=== PATIENT | male | born 1980 | race Caucasian/White ===

== ENCOUNTER 2021-02-04 22:16 | Inpatient (IN) | payer OTHER ==
--- OUTSIDE RECORDS SUMMARY | 2021-02-04 22:20 | XMS REPORT | Continuity of Care Document ---
:1980 Author Organization [facility] t Address [address] [place] [address] Care Team Providers Name Role Phone Pantera GALINDO Attending Clinician Problems Condition Condition Condition Status Onset Resolution Last Treating Co mments Source Name Details Category Date Date Treatment Clinician Date Bipolar Bipolar Problem Active [facility] disorder Disorder 305 da 00:00: Medical 00 Group Muscular Muscular Problem Active [place] [facility] dystrophy Dystrophy 305 da 00:00: Medical 00 Group Cardiomyop Cardiomyop Problem Active [facility] athy athy 305 da 00:00: Medical 00 Group Chronic Chronic Problem Active [place] heart Heart 305 da failure Failure 00:00: Medical 00 Group Administra Administra Problem Active [facility] tion of tion of 3-05 da pneumococc Pneumococc 00:00: Me dical al vaccine al Vaccine 00 Gr oup Allergies, Adverse Reactions, Alerts This patient has no known allergies or adverse reactions. Social History Smoking Status Start Date Stop Date Source Never Smoker [facility] Medications Ordered Filled Start Stop Current Ordering Indication Dosage Frequency Signature Comments Components Source Medication Medication Date Date Medication? Clinician (SIG) Name Name Celexa 20 Celexa 20 No 1 Q1D Celexa 20 [facility] mg tablet mg tablet mg tablet da Take 1 Take 1 Take 1 Medical tablet tablet tablet Group every day every day every day by oral by oral by oral route. route. route. Cogentin 2 Cogentin 2 No 1 BID Cogentin 2 [facility] mg tablet mg tablet mg tablet da Take 1 Take 1 Take 1 Medical tablet tablet tablet Group twice a day twice a day twice a by oral by oral day by route. route. oral route. Coreg 25 mg Coreg 25 mg No 1 BID Coreg 25 [place] tablet Take tablet Take mg tablet da 1 tablet 1 tablet Take 1 Medic al twice a day twice a day tablet Group by oral by oral twice a route. route. day by oral route. docusate docusate No 1 Q1D docusate [facility] sodium 100 sodium 100 sodium 100 da mg tablet mg tablet mg tablet Medical Take 1 Take 1 Take 1 Group tablet tablet tablet every day every day every day by oral by oral by oral route. route. route. Entresto 24 Entresto 24 No 1 BID Entresto [facility] mg-26 mg mg-26 mg 24 mg-26 da tablet Take tablet Take mg tablet Medical 1 tablet 1 tablet Take 1 Group twice a day twice a day tablet by oral by oral twice a route. route. day by oral route. lorazepam 1 lorazepam 1 No lorazepam [facility] mg tablet mg tablet 1 mg da TAKE 1/2 TAKE 1/2 tablet Medic al TABLET BY TABLET BY TAKE 1/2 G roup MOUTH TWICE MOUTH TWICE TABLET BY A DAY. A DAY. MOUTH TWICE A DAY. Risperdal 4 Risperdal 4 No 1 BID Risperdal [facility] mg tablet mg tablet 4 mg da Take 1 Take 1 tablet Medical tablet tablet Take 1 Group twice a day twice a day tablet by oral by oral twice a route. route. day by oral route. spironolact spironolact No .5 Q1D spironolac [place] one 25 mg one 25 mg tone 25 mg da tablet Take tablet Take tablet Medical 0.5 tablets 0.5 tablets Take 0.5 Group every day every day tablets by oral by oral every day route. route. by oral route. Immunizations Ordered Immunization Filled Immunization Date Status Commen ts Source Name Name influenza, influenza, 2019-09-06 Completed [facility] injectable, injectable, 18:12:00 [facility] Grou p quadrivalent, quadrivalent, preservative free preservative free influenza, influenza, 2018-10-03 Completed [facility] recombinant, recombinant, 16:46:00 Medical Gr oup quadrIvalent,injecta quadrIvalent,inject ble, preservative able, preservative free free Vital Signs Vital Name Observation Time Observation Value Comments Source BP Diastolic 2020-06-12 00:00:00 70 mm[Hg] [facility] Height 2020-06-12 00:00:00 64 [in_i] [facility] BMI (Body Mass 2020-06-12 00:00:00 19.7 kg/m2 [facility] Group BP Systolic 2020-06-12 00:00:00 114 mm[Hg] [facility] Body Weight 2020-06-12 00:00:00 1840 [oz_av] [facility] BP Diastolic 2019-09-06 00:00:00 62 mm[Hg] [facility] BP Systolic 2019-09-06 00:00:00 107 mm[Hg] [facility] Body Weight 2019-09-06 00:00:00 1680 [oz_av] [facility] BP Diastolic 2018-10-03 00:00:00 62 mm[Hg] [facility] BP Systolic 2018-10-03 00:00:00 102 mm[Hg] [facility] Body Weight 2018-10-03 00:00:00 1680 [oz_av] [facility] Procedures This patient has no known procedures. Plan of Care Planned Activity Planned Date Details Comments Source Diagnostic Test 2020-06-12 HbA1c (hemoglobin [facility] 00:00:00 A1c), blood [code = Group HbA1c (hemoglobin A1c), blood] Diagnostic Test 2020-06-12 CBC w/ auto diff [facility] 00:00:00 [code = CBC w/ auto Group diff] Diagnostic Test 2020-06-12 TSH + T4, serum [facility]ending 00:00:00 [code = TSH + T4, Group serum] Diagnostic Test 2020-06-12 lipid panel, serum [facility] 00:00:00 [code = lipid panel, Group serum] Diagnostic Test 2020-06-12 CMP, serum or plasma [facility] Pending 00:00:00 [code = CMP, serum Group or plasma] Diagnostic Test 2020-06-12 urinalysis complete, [facility] Pending 00:00:00 reflex culture [code Group = urinalysis complete, reflex culture] Future Appointment 2021-06-12 Mei Grant [facility] 00:00:00 [facility] [address]; , [place] [address] Encounters Start End Encounter Admission Attending Care Care Encounter Source Date/Time Date/Time Type Type Clinicians Facility Department ID 2020-11-03 2020-11-03 Office Pantera [facility] [id number] 03 14:45:25 15:23:00 Visit David Schwartz [id number] [place] [id number] [facility] [id number] [facility] 059 [facility] 2020-06-12 2020-06-12 [place] - [id number] [facility] 00:00:00 00:00:00 MD Silverio: [address] [place] [address] , Ph. 2019-09-06 2019-09-06 Rangel [place] - [id number] [facility] 00:00:00 00:00:00 MD Silverio: [address] [place] [address] , Ph. 2018-10-03 2018-10-03 Rangel [place] - [id number] [facility] 00:00:00 00:00:00 MD Silverio: [address] [place] [address] , Ph. Results This patient has no known results.
[2021-02-05 00:38] LABS: ALT/SGPT 73 U/L (12-78); AST/SGOT 42 U/L (15-37); Albumin 2.9 g/dL (3.4-5.0); Alkaline Phosphatase 88 U/L (45-117); BUN Blood Urea Nitrogen 8 mg/dL (7-18); Bicarbonate 32 mmol/L (21-32); Bilirubin Direct 0.2 mg/dL (0-0.2); Bilirubin Total 0.6 mg/dL (0.2-1.0); Glucose Level 124 mg/dL (74-106); Lipase 11 U/L (73-393); Magnesium 1.9 mg/dL (1.8-2.4); NT PRO-BNP 577 pg/mL (<125); Potassium 3.8 mmol/L (3.5-5.1); Protein, Total 7.1 g/dL (6.4-8.2); Sodium Level 137 mmol/L (136-145); Troponin (Emerg Dept Use Only) < 0.02 ng/mL (0.0-0.045)
[2021-02-05 00:45] LABS: Absolute Lymphocytes (CBC) 0.5 K/uL (0.7-4.9); Lymphocytes % 5.6 % (15.3-44.8); MPV 8.5 fL (7.6-11.3); RBC Red Blood Cell Count 4.34 M/uL (4.33-5.43)
[2021-02-05 00:47] LABS: Protime INR 1.27
--- NOTE | 2021-02-05 01:15 | ER ---
Nurse's Notes [facility] Name: Carter Zapata Age: 40 yrs Sex: Male : 1980 Arrival Date: 02/04/2021 Time: 22:20 Bed 18 Private MD: Diagnosis: Pneumonia, unspecified organism;Hypoxemia Presentation: 02/04 22:54 Chief complaint: Parent and/or Guardian states: pt has been running fever for the last bb 2.5 days highest was 102 she has not medicated him for fever and pt has not been eating normally and is c/o throat pain. Coronavirus screen: fever, Client presents with at least one sign or symptom that may indicate coronavirus-19. Standard/surgical mask placed on the client. Ebola Screen: No symptoms or risks identified at this time. Initial Sepsis Screen: Does the patient meet any 2 criteria? RR > 20 per min. HR > 90 bpm. Yes Does the patient have a suspected source of infection? Yes: Other: unknown. Risk Assessment: Do you want to hurt yourself or someone else? Patient reports no desire to harm self or others. Onset of symptoms was February 01, 2021. 22:54 Method Of Arrival: Wheelchair bb 22:54 Acuity: JOSÉ MIGUEL 3 bb Historical: - Allergies: 22:58 No Known Allergies; bb - Home Meds: 22:58 Ativan Oral [Active]; Celexa Oral [Active]; coconut oil oral [Active]; Cogentin Oral bb [Active]; Coreg Oral [Active]; Docusate Sodium Oral [Active]; Entresto oral [Active]; multivitamin oral [Active]; peridex oral rinse [Active]; prexident 5000 [Active]; risperidone oral [Active]; Spironolactone Oral [Active]; - PMHx: 22:58 Muscular Dystrophy; Anxiety; Bipolar disorder; Cardiomyopathy; bb - PSHx: 22:58 None; bb - Immunization history:: Adult Immunizations up to date. - Social history:: Smoking status: Patient denies any tobacco usage or history of. Screenin:56 Abuse screen: Denies threats or abuse. Denies injuries from another. Nutritional jm8 screening: No deficits noted. Tuberculosis screening: No symptoms or risk factors identified. Fall Risk IV access (20 points). Ambulatory Aid- None/Bed Rest/Nurse Assist (0 pts). Gait- Impaired (20 pts.). Assessment: 23:57 General: Appears in no apparent distress. comfortable, Behavior is calm, cooperative, jm8 appropriate for age. Pain: Denies pain. Neuro: No deficits noted. Level of Consciousness is awake, alert, obeys commands, Oriented to person, place, time. Cardiovascular: No deficits noted. Respiratory: Airway is patent Trachea midline Respiratory effort is even, shallow, weak, Respiratory pattern is regular, symmetrical, Breath sounds are clear. GI: No deficits noted. No signs and/or symptoms were reported involving the gastrointestinal system. : No deficits noted. No signs and/or symptoms were reported regarding the genitourinary system. EENT: Throat is clear Reports sore throat, fever at home, difficulty eating. Derm: No deficits noted. No signs and/or symptoms reported regarding the dermatologic system. Musculoskeletal: No deficits noted. No signs and/or symptoms reported regarding the musculoskeletal system. Vital Signs: 22:54 BP 115 / 74; Pulse 92; Resp 34 S; Temp 98.6(O); Pulse Ox 91% on R/A; Weight 52.16 kg bb (R); Height 5 ft. 4 in. (162.56 cm) (R); 02/05 00:52 BP 117 / 69; Pulse 96; Resp 16; Pulse Ox 95% on R/A; 8 02:12 BP 115 / 63; Pulse 91; Resp 16; Pulse Ox 96% on 2 lpm NC; 8 03:16 BP 120 / 69; Pulse 92; Resp 16; Pulse Ox 97% on 2 lpm NC; 8 02/04 22:54 Body Mass Index 19.74 (52.16 kg, 162.56 cm) ED Course: 02/04 22:20 Patient arrived in ED. es 22:42 Joe Santiago MD is Attending Physician. tw4 22:58 Triage completed. bb 22:58 Arm band placed on Patient placed in an exam room, on a stretcher, on pulse oximetry. bb Family accompanied patient. 23:57 Patient has correct armband on for positive identification. Bed in low position. Call [facility] light in reach. Side rails up X2. Adult w/ patient. 23:58 Inserted saline lock: 20 gauge in right antecubital area, using aseptic technique. 8 02/05 00:11 XRAY CXR (1 view) In Process Unspecified. EDMS 01:14 Tristen Rodriguez DO is Hospitalizing Provider. tw4 03:14 No provider procedures requiring assistance completed. Patient admitted, IV remains in [address] place. Administered Medications: 00:55 CANCELLED (Physician Discretion): AZITHromycin 500 mg IVPB once over 1 hrs; (mix in 250 tw4 mL NS) 00:56 CANCELLED (Physician Discretion): Rocephin (cefTRIAXone) 1 grams IV at bolus bolus; tw4 Given slow IV push per pharmacy instructions 01:07 Drug: Zosyn (piperacillin-tazobactam) 3.375 grams Route: IVPB; Infused Over: 60 mins; [facility] Site: right antecubital; 01:52 Follow up: Response: No adverse reaction; IV Status: Completed infusion [facility] Outcome: 01:14 Decision to Hospitalize by Provider. tw4 03:14 Admitted to Med/surg accompanied by nurse, via stretcher, with oxygen, with chart, [facility] Report called to Moses HARGROVE 03:14 Condition: good 03:14 Instructed on the need for admit. 03:24 Patient left the ED. jm8 Signatures: Dispatcher [employer] Siria Lemos Brenda RN RN Joe Brandon MD MD [facility] Chinedu Odonnell RN RN jm8 Corrections: (The following items were deleted from the chart) 02/04 23:03 22:58 Home Meds: muscular dystrophy; bianca valenzuela
--- NOTE | 2021-02-05 01:15 | EDPHYS ---
Physician Documentation [facility] Name: Carter Zapata Age: 40 yrs Sex: Male : 1980 Arrival Date: 02/04/2021 Time: 22:20 Bed 18 Private MD: ED Physician Joe Santiago HPI: 02/05 01:27 This 40 yrs old Male presents to ER via Wheelchair with complaints of Fever, tw4 Sore Throat, has other complications. 01:27 The patient reports fever, that was measured at 102 degrees Fahrenheit. Onset: The tw4 symptoms/episode began/occurred today. Modifying factors: there are no obvious modifying factors. Associated signs and symptoms: Pertinent positives: sore throat. Severity of symptoms: At their worst the symptoms were moderate in the emergency department the symptoms are unchanged. The patient has not experienced similar symptoms in the past. Historical: - Allergies: 02/04 22:58 No Known Allergies; bb - Home Meds: 22:58 Ativan Oral [Active]; Celexa Oral [Active]; coconut oil oral [Active]; Cogentin Oral bb [Active]; Coreg Oral [Active]; Docusate Sodium Oral [Active]; Entresto oral [Active]; multivitamin oral [Active]; peridex oral rinse [Active]; prexident 5000 [Active]; risperidone oral [Active]; Spironolactone Oral [Active]; - PMHx: 22:58 Muscular Dystrophy; Anxiety; Bipolar disorder; Cardiomyopathy; bb - PSHx: 22:58 None; bb - Immunization history:: Adult Immunizations up to date. - Social history:: Smoking status: Patient denies any tobacco usage or history of. ROS: 02/05 01:27 Constitutional: Negative for fever, chills, and weight loss, Eyes: Negative for injury, tw4 pain, redness, and discharge, Cardiovascular: Negative for chest pain, palpitations, and edema, Respiratory: Negative for shortness of breath, cough, wheezing, and pleuritic chest pain, Abdomen/GI: Negative for abdominal pain, nausea, vomiting, diarrhea, and constipation, Back: Negative for injury and pain, MS/Extremity: Negative for injury and deformity. ENT: Positive for sore throat. Exam: 01:27 Constitutional: This is a well developed, well nourished patient who is awake, alert, tw4 and in no acute distress. Head/Face: Normocephalic, atraumatic. 01:27 Cardiovascular: Regular rate and rhythm with a normal S1 and S2. No gallops, murmurs, or rubs. Normal PMI, no JVD. No pulse deficits. Respiratory: Lungs have equal breath sounds bilaterally, clear to auscultation and percussion. No rales, rhonchi or wheezes noted. No increased work of breathing, no retractions or nasal flaring. Abdomen/GI: Soft, non-tender, with normal bowel sounds. No distension or tympany. No guarding or rebound. No evidence of tenderness throughout. Back: No spinal tenderness. No costovertebral tenderness. Full range of motion. 01:27 ENT: Posterior pharynx: erythema. 01:27 Respiratory: the patient does not display signs of respiratory distress, Respirations: normal, Breath sounds: rhonchi. Vital Signs: 02/04 22:54 BP 115 / 74; Pulse 92; Resp 34 S; Temp 98.6(O); Pulse Ox 91% on R/A; Weight 52.16 kg bb (R); Height 5 ft. 4 in. (162.56 cm) (R); 02/05 00:52 BP 117 / 69; Pulse 96; Resp 16; Pulse Ox 95% on R/A; jm8 02:12 BP 115 / 63; Pulse 91; Resp 16; Pulse Ox 96% on 2 lpm NC; 8 03:16 BP 120 / 69; Pulse 92; Resp 16; Pulse Ox 97% on 2 lpm NC; 8 02/04 22:54 Body Mass Index 19.74 (52.16 kg, 162.56 cm) bb MDM: 02/04 22:45 Patient medically screened. tw4 02/05 01:29 Differential diagnosis: viral Infection, bacterial infection, URI, bronchitis. Data tw4 reviewed: vital signs, nurses notes. Data reviewed: lab test result(s), drug level(s), electrolytes, radiologic studies, plain films. Data interpreted: Pulse oximetry: Interpretation: normal. Counseling: I had a detailed discussion with the patient and/or guardian regarding: the historical points, exam findings, and any diagnostic results supporting the discharge/admit diagnosis, lab results, radiology results. 01:45 Physician consultation: Tristen Rodriguez DO regarding admission, to the telemetry unit. tw4 patient's condition, and will see patient in ED. 02/04 23:28 Order name: BMP tw 02/04 23:28 Order name: Blood Culture Adult (2) tw4 02/04 23:28 Order name: CBC with Diff; Complete Time: 00:50 tw4 02/04 23:28 Order name: Hepatic Function; Complete Time: 00:50 tw4 02/04 23:28 Order name: Lipase; Complete Time: 00:50 tw02/04 23:28 Order name: Magnesium; Complete Time: 00:50 tw4 02/04 23:28 Order name: NT PRO-BNP; Complete Time: 00:50 tw4 02/04 23:28 Order name: PT-INR; Complete Time: 00:50 tw4 02/04 23:28 Order name: Ptt, Activated; Complete Time: 00:50 tw4 02/04 23:28 Order name: Troponin (emerg Dept Use Only); Complete Time: 00:50 tw4 02/04 23:28 Order name: Basic Metabolic Panel; Complete Time: 00:50 EDMS 02/04 23:28 Order name: Blood Culture EDMN 02/05 01:00 Order name: Procalcitonin la1 02/04 23:28 Order name: XRAY CXR (1 view) tw4 02/04 23:28 Order name: EKG; Complete Time: 23:29 tw4 02/04 23:28 Order name: Cardiac monitoring; Complete Time: 00:13 4 02/04 23:28 Order name: EKG - Nurse/Tech; Complete Time: 00:13 02/04 23:28 Order name: IV Saline Lock; Complete Time: 23:55 tw4 02/04 23:28 Order name: Labs collected and sent; Complete Time: 23:55 tw4 02/04 23:28 Order name: O2 Per Protocol; Complete Time: 23:55 tw02/04 23:28 Order name: O2 Sat Monitoring; Complete Time: 23:55 tw4 02/05 02:00 Order name: SARS-COV-2 RT PCR EDMS EC:22 Rate is 90 beats/min. Rhythm is regular. QRS [place] is Normal. NV interval is shortened. tw4 QRS interval is normal. QT interval is normal. No Q waves. T waves are Normal. No ST changes noted. Clinical impression: Normal ECG. Interpreted by me. Reviewed by me. Administered Medications: 00:55 CANCELLED (Physician Discretion): AZITHromycin 500 mg IVPB once over 1 hrs; (mix in 250 tw4 mL NS) 00:56 CANCELLED (Physician Discretion): Rocephin (cefTRIAXone) 1 grams IV at bolus bolus; tw4 Given slow IV push per pharmacy instructions 01:07 Drug: Zosyn (piperacillin-tazobactam) 3.375 grams Route: IVPB; Infused Over: 60 mins; jm8 Site: right antecubital; 01:52 Follow up: Response: No adverse reaction; IV Status: Completed infusion jm8 Disposition Summary: 02/05/21 01:14 Hospitalization Ordered Hospitalization Status: Inpatient Admission tw4 Provider: Tristen Rodriguez 4 Location: Telemetry/MedSurg (Inpatient) tw4 Condition: Stable tw4 Problem: new tw4 Symptoms: have improved tw4 Bed/Room Type: Standard tw4 Room Assignment: 230(02/05/21 02:24) mw2 Diagnosis - Pneumonia, unspecified organism tw4 - Hypoxemia tw4 Forms: - Medication Reconciliation Form tw4 - SBAR form tw4 Signatures: Dispatcher [employer] Airam Roa RN RN bb Lj Maria, STOCK ASSOCIATE-C STOCK ASSOCIATE-Cla1 Janeth Lyle RN RN tl1 Joe Santiago MD MD tw4 Deepa Dennison mw2 Chinedu Odonnell RN RN jm8 Corrections: (The following items were deleted from the chart) 02/04 23:03 22:58 Home Meds: muscular dystrophy; bianca valenzuela 02/05 00:55 00:52 AZITHromycin 500 mg IVPB once over 1 hrs; (mix in 250 mL NS) ordered. tw4 00:55 00:55 AZITHromycin 500 mg IVPB once over 1 hrs; (mix in 250 mL NS) ordered. tw4 tw4 00:56 00:52 Rocephin (cefTRIAXone) 1 grams IV at bolus bolus; Given slow IV push per pharmacy tw4 instructions ordered. 4 00:56 00:55 Rocephin (cefTRIAXone) 1 grams IV at bolus bolus; Given slow IV push per pharmacy tw4 instructions ordered. tw4 01:06 00:51 CORONAVIRUS+MREleanorLAB.BRZ ordered. EDMS EDMS 02:02 01:14 tw4 tl1 02:24 02:02 [facility] 2
[2021-02-05] MEDS ORDERED: PIPER/TAZO/NS 3.375gm 3.375 GM/100 ML BAG ONE (01:21)
--- NOTE | 2021-02-05 02:04 | P.HP ---
Certification for Inpatient Patient admitted to: Inpatient With expected LOS: >2 Midnights Patient will require the following post-hospital care: None Practitioner: I am a practitioner with admitting privileges, knowledge of patient current condition, hospital course, and medical plan of care. Services: Services provided to patient in accordance with Admission requirements found in Title 42 Section 412.3 of the Code of Federal Regulations Patient History Date of Service: 02/05/21 Primary Care Provider: Out of town doctor cardiology Dr. Mott Reason for admission: Pneumonia, hypoxia History of Present Illness: 40-year-old male with history of muscular dystrophy, cardiomyopathy, BPD presents emergency department for shortness of breath, fever. Patient noted to be mildly hypoxic on room air saturating in the low 90s to high 80s. Mother at bedside reports patient has had increasing problems with swallowing over the course of the last 1-2 weeks, patient unable to cough or protect airway very well. Evaluation in the emergency department, labs significant for elevated pro calcitonin 0.4 albumin low 2.9 white blood cell count within normal limit. chest x-ray demonstrates what appears to be right middle/lower lobe pneumonia. Blood cultures obtained, ED provider wishes to admit for further evaluation and management of suspected aspiration pneumonia. 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 moist/pink Neck: Supple, 2+ carotid pulse no bruit, No LAD Respiratory: Clear to auscultation bilaterally, Diminished Cardiovascular: Regular rate/rhythm, Normal S1 S2 Capillary refill: <2 Seconds Gastrointestinal: Normal bowel sounds, No tenderness Musculoskeletal: No tenderness Integumentary: No rashes Neurological: Normal affect, Other (Wheelchair-bound), Abnormal speech, Abnormal strength, Abnormal tone - Studies Laboratory Data (last 24 hrs) 02/04/21 23:51: PT 14.6 H, INR 1.27, APTT 28.6 02/04/21 23:51: WBC 8.70, Hgb 12.6 L, Hct 38.0 L, Plt Count 224 02/04/21 23:51: Sodium 137, Potassium 3.8, BUN 8, Creatinine 0.17 L, Glucose 124 H, Magnesium 1.9, Total Bilirubin 0.6, AST 42 H, ALT 73, Alkaline Phosphatase 88, Lipase 11 L Assessment and Plan - Plan Assessment Acute hypoxic respiratory failure secondary to right lower lobe pneumonia- suspect aspiration related to muscular dystrophy with worsening dysphagia 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 NPO, speech therapy consult in place suspect patient is aspirating as mother reports he has had difficulty swallowing over the course of the last 1-2 weeks. Patient may require PEG tube. Continue with IV fluids for hydration, DVT prophylaxis Lovenox 40 mg subcutaneous once daily. 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 Appears stable at this time. BPD: Continue medications when possible. Discharge Plan: Home Plan to discharge in: Greater than 2 days - Advance Directives Does patient have a Living Will: No Does patient have a Durable POA for Healthcare: No - Code Status/Comfort Care Code Status Assessed: Yes (Full code) Critical Care: No Time Spent Managing Pts Care (In Minutes): 55
[2021-02-05] MEDS ORDERED: ONDANSETRON 4 MG/2 ML VIAL IV PRN (02:55)
[2021-02-05] MEDS ORDERED: ACETAMINOPHEN 650MG/RECT SUPP PR PRN (02:55)
[2021-02-05] MEDS: NA CHLORIDE 0.9% 1,000 ML IV SCH ×2 (03:28→12:55)
[2021-02-05] MEDS ORDERED: LORazepam 2 MG/ML VIAL IV PRN (03:57)
--- NOTE | 2021-02-05 06:04 | P.PN ---
Subjective Date of Service: 02/05/21 [facility] Dr. Mott Chief Complaint: Pneumonia, hypoxia Subjective: Other (Patient shows improvement.) Physical Examination - Vital Signs Temperature: 98.6 F Blood Pressure: 106/60 Pulse: 95 Respirations: 18 Pulse Ox (%): 98 - Studies Laboratory Data (last 24 hrs) 02/04/21 23:51: PT 14.6 H, INR 1.27, APTT 28.6 02/04/21 23:51: WBC 8.70, Hgb 12.6 L, Hct 38.0 L, Plt Count 224 02/04/21 23:51: Sodium 137, Potassium 3.8, BUN 8, Creatinine 0.17 L, Glucose 124 H, Magnesium 1.9, Total Bilirubin 0.6, AST 42 H, ALT 73, Alkaline Phosphatase 88, Lipase 11 L Assessment & Plan Discharge Plan: Home Plan to discharge in: Greater than 2 days Physician Review Additional Text: Chest x-ray: FINDINGS: Dense opacification is present in the right lung base obscuring the right hemidiaphragm and right heart border. In the acute clinical setting dense consolidated pneumonia is most likely. Pleural effusion and atelectasis components can be present as well. All lung markings are accentuated by shallow inspiration. Left lung field is clear. No cardiomegaly suspected. No pneumothorax. No acute bony abnormality seen. No acute aortic findings suspected. IMPRESSION: Dense right base opacification most likely a large pneumonia. Modified barium swallow: COMPARISON: No comparisons TECHNIQUE: The patient was given liquid, semi-solid and solid forms of barium. Lateral view fluoroscopic imaging was performed in conjunction with speech pathology service. Findings: Laryngeal penetration cleared with thin by straw, pharyngeal residue vallecular mild with thin, nectar, pudding. Moderate with honey and severe with margy cracker. Pyriform minimal with thin, mild with nectar and honey, moderate with putting. Posterior wall minimal with thin, mild with pudding, moderate to severe with margy cracker. Severe kyphosis, decreased epiglottal inversion, 2- second swallow delay, severe esophageal stasis and dysmotility with pudding and barium tablet. Physical Exam: General: Alert, In no apparent distress, Oriented x3 HEENT: Atraumatic, PERRLA, Mucous membr. moist/pink Neck: Supple, 2+ carotid pulse no bruit, No LAD Respiratory: Clear to auscultation bilaterally, Diminished Cardiovascular: Regular rate/rhythm, Normal S1 S2 Capillary refill: <2 Seconds Gastrointestinal: Normal bowel sounds, No tenderness Musculoskeletal: No tenderness Integumentary: No rashes Neurological: Normal affect, Other (Wheelchair-bound), Abnormal speech, Abnormal strength, Abnormal tone Impression: Acute hypoxic respiratory failure secondary to right lower lobe pneumonia likely aspiration with noted abnormal modified barium swallow showing severe esophageal stasis, dysmotility and decreased epiglottal inversion with worsening dysphagia Muscular dystrophy 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 Will adjust IV fluids appropriately. DVT prophylaxis in place. Aspiration precaution in place. Speech therapy evaluated patient. Modified barium swallow reviewed with speech therapy. Speech therapy reported severe esophageal stasis and dysmotility. Unsafe to eat by mouth. Recommendation PEG tube placement. This was discussed in detail with the mother who takes care of the patient. Also discussed with sister. They agree with PEG tube placement. Care discussed with surgery who will evaluate patient and likely place PEG tube tomorrow. Will discuss with social services director about future plan of care. Recheck chest x-ray tomorrow. Continue to monitor the lab closely. Parameters in place. Electrolyte protocol in place. Anticipate continued improvement. 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 Will obtain echocardiogram to reevaluate cardiomyopathy. BPD: Will provide IV lorazepam. Continue IV Cogentin. Once PEG tube in place we will restart Risperdal and Celexa. Code Status: Full code DVT Prophylaxis: Lovenox Advanced Care Planning: Home at discharge with home health and likely caregiver services. Time Spent Managing Pts Care (In Minutes): 55
[2021-02-05 07:09] LABS: Urine Appearance CLOUDY (Clear); Urine Blood NEGATIVE (Negative); Urine Color DK YELLOW (Yellow); Urine Glucose NEGATIVE (Negative); Urine Protein 1+ (Negative); Urine Specific Gravity >=1.030 (1.005-1.030)
[2021-02-05 07:15] LABS: Urine Bilirubin 2+ (Negative); Urine Microscopic Reflex ORDER UMIC
[2021-02-05 07:32] LABS: Urine Bacteria <20 /HPF (NONE SEEN); Urine RBC NONE SEEN /HPF (NONE SEEN)
[2021-02-05 07:33] LABS: Urine Amorphous Sediment 1+ /HPF (NONE SEEN)
--- NOTE | 2021-02-05 08:04 | RAD REPORT ---
EXAM DESCRIPTION: RAD - Chest Single View - 02/05/2021 12:05 am CLINICAL HISTORY: DYSPNEA COMPARISON: None TECHNIQUE: AP portable chest image was obtained 02/05/2021 12:05 am . FINDINGS: Dense opacification is present in the right lung base obscuring the right hemidiaphragm an d right heart border. In the acute clinical setting dense consolidated pneumonia is most likely. Pleu ral effusion and atelectasis components can be present as well. All lung markings are accentuated by shallow inspiration. Left lung field is clear. No cardiomegaly suspected. No pneumothorax. No acute b mary beth abnormality seen. No acute aortic findings suspected. IMPRESSION: Dense right base opacification most likely a large pneumonia.
--- NOTE | 2021-02-05 08:04 | EKG ---
Test Date: 2021-02-05 Test Time: 00:06:36 Adjunct Latin Professor: MEASUREMENT RESULTS: Intervals: Rate: 90 MO: 102 QRSD: 86 QT: 354 QTc: 433 [place]: P: 64 MO: 102 QRS: -1 T: 46 INTERPRETIVE STATEMENTS: Sinus rhythm with short MO Low voltage QRS Borderline ECG No previous ECG available for comparison Electronically Signed On 02-05-21 08:03:29 CDT by Rene Corrigan
[2021-02-05] MEDS: PIPER/TAZO/NS 3.375gm 3.375 GM/100 ML BAG IVPB SCH ×2 (09:05→16:32)
[2021-02-05] MEDS: ENOXAPARIN 40 MG/0.4 ML SQ SCH (09:05)
--- NOTE | 2021-02-05 12:56 | RAD REPORT ---
EXAM DESCRIPTION: RAD - Barium Swallow Modified - 02/05/2021 12:50 pm CLINICAL HISTORY: dysphagia Aspiration, dysphagia. COMPARISON: No comparisons TECHNIQUE: The patient was given liquid, semi-solid and solid forms of barium. Lateral view fluorosc opic imaging was performed in conjunction with speech pathology service. FINDINGS: LARYNGEAL PENETRATION CLEARED WITH THIN BY STRAW PHARYNGEAL RESIDUE VALLECULAR MILD WITH THIN, NECTAR AND PUDDING. MODERATE WITH HONEY AND SEVERE WITH JANETTE CRACKER. PYRIFORM MINIMAL WITH THIN, MILD WITH NECTAR AND HONEY, MODERATE WITH PUDDING. POSTERIOR WALL MINIMAL WITH THIN, MILD WITH PUDDING, MODERATE TO SEVERE WITH JANETTE CRACKER. SEVERE KYPHOSIS, DECREASED EPIGLOTTIC INVERSION, 2 SECOND SWALLOW DELAY, SEVERE ESOPHAGEAL STASIS AND DYSMOTILITY WITH PUDDING AND BARIUM TABLET. Total fluoroscopy time: 3 minutes and 36 seconds
[2021-02-05] MEDS: D5 0.9 NS 1,000 ML IV SCH (15:08)
[2021-02-05] MEDS: LORazepam 2 MG/ML VIAL IV PRN (16:38)
[2021-02-05] MEDS: BENZTROPINE 2 MG/2 ML VIAL IV SCH (21:00)
[2021-02-06] MEDS: D5 0.9 NS 1,000 ML IV SCH (00:56)
[2021-02-06] MEDS: PIPER/TAZO/NS 3.375gm 3.375 GM/100 ML BAG IVPB SCH ×3 (00:56→17:42)
--- NOTE | 2021-02-06 06:08 | P.PN ---
Subjective Date of Service: 02/06/21 Primary Care Provider: Out of town doctor cardiology Dr. Mott Chief Complaint: Pneumonia, hypoxia Subjective: Doing well Physical Examination - Vital Signs Temperature: 97.1 F Blood Pressure: 109/60 Pulse: 80 Respirations: 16 Pulse Ox (%): 96 Assessment & Plan Discharge Plan: Jail Plan to discharge in: Greater than 2 days Physician Review Additional Text: Chest x-ray: FINDINGS: Dense opacification is present in the right lung base obscuring the right hemidiaphragm and right heart border. In the acute clinical setting dense consolidated pneumonia is most likely. Pleural effusion and atelectasis components can be present as well. All lung markings are accentuated by shallow inspiration. Left lung field is clear. No cardiomegaly suspected. No pneumothorax. No acute bony abnormality seen. No acute aortic findings suspected. IMPRESSION: Dense right base opacification most likely a large pneumonia. Modified barium swallow: COMPARISON: No comparisons TECHNIQUE: The patient was given liquid, semi-solid and solid forms of barium. Lateral view fluoroscopic imaging was performed in conjunction with speech pathology service. Findings: Laryngeal penetration cleared with thin by straw, pharyngeal residue vallecular mild with thin, nectar, pudding. Moderate with honey and severe with margy cracker. Pyriform minimal with thin, mild with nectar and honey, moderate with putting. Posterior wall minimal with thin, mild with pudding, moderate to severe with margy cracker. Severe kyphosis, decreased epiglottal inversion, 2- second swallow delay, severe esophageal stasis and dysmotility with pudding and barium tablet. Physical Exam: General: Alert, In no apparent distress HEENT: Atraumatic, PERRLA, Mucous membr. moist/pink Neck: Supple, 2+ carotid pulse no bruit, No LAD Respiratory: Clear anteriorly. On NC. 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 Will adjust IV fluids to D51/2. DVT prophylaxis on hold until tonight. Aspiration precaution in place. Speech therapy evaluated patient. Modified barium swallow reviewed with speech therapy. Speech therapy reported severe esophageal stasis and dysmotility. Unsafe to eat by mouth. Recommendation PEG tube placement. This was discussed in detail with the mother who takes care of the patient yesterday. Also discussed with sister. They agree with PEG tube placement. Care discussed with surgery who will evaluate patient and likely place PEG tube today. Will discuss with social media sr strategy manager about future plan of care. Continue to monitor the lab closely. Parameters in place. Electrolyte protocol in place. Anticipate continued improvement. 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 Will obtain echocardiogram to reevaluate cardiomyopathy. ECHO recently done with outpatient Cardiology. Mother reports that EF was 40%. Will obtain ECHO report. BPD: Will provide IV lorazepam. Continue IV Cogentin. Once PEG tube in place we will restart Risperdal and Celexa. Code Status: Full code DVT Prophylaxis: Lovenox Advanced Care Planning: Home at discharge with home health and likely caregiver services. Time Spent Managing Pts Care (In Minutes): 55
[2021-02-06 06:10] LABS: Absolute Lymphocytes (CBC) 0.9 K/uL (0.7-4.9); Basophils % 0.4 % (0-1.3); Hematocrit 31.2 % (39.6-49.0); Lymphocytes % 14.4 % (15.3-44.8); MPV 7.8 fL (7.6-11.3); RBC Red Blood Cell Count 3.51 M/uL (4.33-5.43)
[2021-02-06 06:52] LABS: ALT/SGPT 46 U/L (12-78); AST/SGOT 20 U/L (15-37); Alkaline Phosphatase 61 U/L (45-117); BUN Blood Urea Nitrogen 3 mg/dL (7-18); Bicarbonate 32 mmol/L (21-32); Bilirubin Total 0.3 mg/dL (0.2-1.0); Glucose Level 132 mg/dL (74-106); Magnesium 1.9 mg/dL (1.8-2.4); Potassium 3.2 mmol/L (3.5-5.1); Protein, Total 5.4 g/dL (6.4-8.2); Sodium Level 145 mmol/L (136-145); Thyroid Stimulating Hormone 0.522 uIU/mL (0.360-3.740)
--- NOTE | 2021-02-06 07:29 | RAD REPORT ---
EXAM DESCRIPTION: RAD - Chest Single View - 02/06/2021 6:45 am CLINICAL HISTORY: Follow-up pneumonia COMPARISON: Chest Single View dated 02/04/2021; Barium Swallow Modified dated 02/05/2021 FINDINGS: Opacification of the right lower lung likely a combination of a moderate to large right pl eural effusion as well as underlying consolidation. Similar heart size though partially obscured.No a cute osseous abnormality. IMPRESSION: Similar moderate to large right pleural effusion with presumably underlying atelectasis and/or pneumonia.
[2021-02-06] MEDS ORDERED: D5 0.45 NS 1,000 ML IV SCH (08:00)
[2021-02-06] MEDS: KCL 20 MEQ/100 mL IVPB 20 MEQ/100 ML BAG IV SCH ×2 (09:00→15:47)
[2021-02-06] MEDS: BENZTROPINE 2 MG/2 ML VIAL IV SCH ×3 (09:00→20:50)
[2021-02-06] MEDS: ENOXAPARIN 40 MG/0.4 ML SQ SCH (09:00)
--- NOTE | 2021-02-06 09:54 | CON ---
Date of Consultation: 02/06/2021 Brief History Of Present Illness: The patient is a 40-year-old male with a medical history of muscul ar dystrophy, cardiomyopathy, BPH, who presents to the Emergency Department with shortness of breath and fever. He is hypoxic during his admission and his mother was at the bedside, who is his medical power of salesperson surgical appliances. The patient is essentially nonverbal and be getting more fatigued as of late and had difficulty with diet. During his workup and admission to the hospital, he was seen for possible likely aspiration pneumonia. He was admitted on 02/05/2021, yesterday. Dr. Rodriguez saw him. He was seen for a modified barium swallow and speech evaluation, who determined that the patient is high ris k for any oral intake and as such, I am requested to discuss PEG tube placement with the patient and family. Past Medical History: Significant for muscular dystrophy, cardiomyopathy, BPH. Past Surgical History: Denies. Social History: Never used drugs, alcohol, or recreational drugs. Review of Systems: Ten-point review of systems unable to obtain as the patient is currently sleeping and sedate. Despit e the examination, he is nonverbal. Physical Examination: Vital Signs: At the time of my examination; his blood pressure was 105/59, his heart rate is 74, tem perature 97.5, respirations 18, SpO2 99% on room air. General: He is asleep, lethargic, arousable, but nonverbal. HEENT: Otherwise normocephalic. He slightly appears thin in appearance. Chest: Normal expansion and excursion. Cardiovascular: Regular rate and rhythm. Pulmonary: Clear to auscultation bilaterally. Abdomen: Soft, nontender, nondistended. The patient is slightly contracted in the position, l salazar on his left side. Skin: Warm and dry. Laboratory Data: White blood cell count of 6.3, hemoglobin 10.2, hematocrit of 31.2, platelet count is 240. His PT 14.6, INR 1.27, PTT is 28.6. His chemistry showed a sodium 145, potassium 3.2, chlor danielle 110, carbon dioxide 32, BUN was 3, creatinine 0.15, glucose is 132, calcium 8.2, magnesium 1.9, t otal bilirubin 0.9, AST 20, ALT 46, alkaline phosphatase 61. His lipase was 11 on admission. Procal citonin 0.4. His COVID test was negative. He had a modified barium swallow performed on 02/05, ic h was evaluated and read officially. Laryngeal penetration cleared with thin by straw, pharyngeal re sidue, vallecular, mild, and thin, nectar and pudding moderate with honey and severe with Mg crac ker. Appear form minimal with thin, mild with nectar, add honey, moderate with pudding. Posterior w all minimal with thin, mild with pudding, moderate to severe with Mg cracker. Severe kyphosis. Decreased epiglottic inversion. Second swallow delay. Severe esophageal stasis and dysmotility with pudding and barium tablet. Assessment And Plan: This is a 40-year-old male who comes in with severe dysphagia, malnutrition. 1.IV fluid hydration. 2.I have explained the risks, benefits, and alternatives to the patient's mother/medical power of at torney and the patient for EGD and PEG tube placement including, but not limited to bleeding, infecti on, damage to surrounding tissues, injury to intestines, need for further operation and procedures. The patient's mother agrees to proceed as indicated. RISSA/CINTHIA Voice ID: [id number] Report ID: [id number]
[2021-02-06] MEDS ORDERED: LIDOCAINE 1% MPF 5 ML VIAL ONE (10:14)
[2021-02-06] MEDS ORDERED: propofoL 200 MG/20 ML VIAL IV ONE (10:14)
[2021-02-06] MEDS ORDERED: Ringers Lactate 1,000 ML IV ONE (10:17)
[2021-02-06] MEDS ORDERED: ALBUTEROL 2.5 MG/3 ML NEB SOL ONE (10:50)
[2021-02-06] MEDS ORDERED: FUROSEMIDE 20 MG/ 2ML VIAL ONE (11:18)
[2021-02-06] MEDS ORDERED: KETOROLAC 30 MG/ML INJ ONE (11:29)
[2021-02-06] MEDS ORDERED: dexAMETHasone 10 MG/ML VIAL ONE (11:29)
[2021-02-06] MEDS ORDERED: SCOPOLAMINE HYDROBROMIDE PATCH TD ONE (11:53)
[2021-02-06 13:03] LABS: Arterial Blood Carboxyhemoglob 0.6 % (0-1.5); Blood Gas Oxyhemoglobin 95.5 % (94-97); Blood O2 Saturation 96.9 % (92-98.5)
--- NOTE | 2021-02-06 13:19 | RAD REPORT ---
EXAM DESCRIPTION: CT - Chest For Pe Angio - 02/06/2021 1:06 pm CLINICAL HISTORY: Chest pain/hypoxia COMPARISON: None. TECHNIQUE: Dynamically enhanced axial 3 mm thick images of the chest were obtained during administra tion of <100> mL Isovue 370 IV contrast. Coronal and oblique reconstruction images were generated and reviewed. Exam utilizes a protocol for optimal evaluation of pulmonary arterial tree. Maximum intensity projections 3D imaging was utilized All CT scans are performed using dose optimization technique as appropriate and may include automated exposure control or mA/KV adjustment according to patient size. FINDINGS: A pulmonary embolus is not seen. A thoracic aortic aneurysm is not noted. Small right pleural effusion. A pericardial effusion is not seen. Moderate to large right middle and right lower lobe consolidation with atelectasis. Right lower lobe bronchus is occluded. Mild lingular opacity The gallbladder is only partially imaged on this exam. The wall may be thickened. If clinically indic ated further evaluation ultrasound could be obtained IMPRESSION: Negative for a pulmonary embolism. Moderate to large right pneumonia with atelectasis. Occlusion of the right lower lobe bronchus this s hould be followed until has cleared to help exclude an endobronchial lesion Small right pleural effusion
[2021-02-06] MEDS: NA CHLORIDE 0.9% 250 ML ONE ×2 (13:54→15:51)
[2021-02-06] MEDS ORDERED: D5W 1,000 ML IV SCH (16:00)
[2021-02-07] MEDS: PIPER/TAZO/NS 3.375gm 3.375 GM/100 ML BAG IVPB SCH ×3 (01:27→16:20)
[2021-02-07 06:02] LABS: Absolute Lymphocytes (CBC) 0.9 K/uL (0.7-4.9); Basophils % 0.5 % (0-1.3); Hematocrit 32.4 % (39.6-49.0); Lymphocytes % 15.9 % (15.3-44.8); MPV 7.7 fL (7.6-11.3); RBC Red Blood Cell Count 3.66 M/uL (4.33-5.43)
[2021-02-07 06:17] LABS: ALT/SGPT 47 U/L (12-78); AST/SGOT 21 U/L (15-37); Albumin 2.2 g/dL (3.4-5.0); Alkaline Phosphatase 61 U/L (45-117); BUN Blood Urea Nitrogen 2 mg/dL (7-18); Bicarbonate 37 mmol/L (21-32); Bilirubin Total 0.4 mg/dL (0.2-1.0); Glucose Level 104 mg/dL (74-106); Magnesium 1.7 mg/dL (1.8-2.4); Potassium 3.5 mmol/L (3.5-5.1); Sodium Level 141 mmol/L (136-145)
[2021-02-07] MEDS ORDERED: MAGNESIUM SULFATE 1 gm IVPB 1 GM/100 ML BAG IV ONE (08:00)
[2021-02-07] MEDS ORDERED: KCL 20 MEQ/100 mL IVPB 20 MEQ/100 ML BAG IV SCH (09:00)
[2021-02-07] MEDS: BENZTROPINE 2 MG/2 ML VIAL IV SCH ×3 (09:00→20:27)
--- NOTE | 2021-02-07 09:03 | RAD REPORT ---
EXAM DESCRIPTION: RAD - Chest Single View - 02/07/2021 7:54 am CLINICAL HISTORY: Pneumonia, shortness of breath COMPARISON: CT chest February 06, portable chest February 06 TECHNIQUE: AP portable chest image was obtained 02/07/2021 7:54 am . FINDINGS: Dense consolidation in the right lung base remains. There has been no significant change. Left lung field remains clear. Heart size is normal, mostly obscured by the dense right base pneumoni a. No measurable pleural effusion and no pneumothorax. No acute bony abnormality seen. No acute aorti c findings suspected. IMPRESSION: Dense consolidated pneumonia right lung base not clearly different from comparison.
--- NOTE | 2021-02-07 09:34 | P.PN ---
Subjective Date of Service: 02/07/21 Primary Care Provider: Out of [facility] doctor cardiology Dr. Mott Chief Complaint: Pneumonia, hypoxia Subjective: Improving, Doing well (Overall stable) Physical Examination - Vital Signs Temperature: 98.8 F Blood Pressure: 103/63 Pulse: 89 Respirations: 16 Pulse Ox (%): 97 Assessment & Plan Discharge Plan: Home Plan to discharge in: Greater than 2 days Physician Review Additional Text: Modified barium swallow: COMPARISON: No comparisons TECHNIQUE: The patient was given liquid, semi-solid and solid forms of barium. Lateral view fluoroscopic imaging was performed in conjunction with speech pathology service. Findings: Laryngeal penetration cleared with thin by straw, pharyngeal residue vallecular mild with thin, nectar, pudding. Moderate with honey and severe with margy cracker. Pyriform minimal with thin, mild with nectar and honey, moderate with putting. Posterior wall minimal with thin, mild with pudding, moderate to severe with margy cracker. Severe kyphosis, decreased epiglottal inversion, 2- second swallow delay, severe esophageal stasis and dysmotility with pudding and barium tablet. CT Scan: COMPARISON: None. TECHNIQUE: Dynamically enhanced axial 3 mm thick images of the chest were obtained during administration of <100> mL Isovue 370 IV contrast. Coronal and oblique reconstruction images were generated and reviewed. Exam utilizes a protocol for optimal evaluation of pulmonary arterial tree. Maximum intensity projections 3D imaging was utilized All CT scans are performed using dose optimization technique as appropriate and may include automated exposure control or mA/KV adjustment according to patient size. FINDINGS: A pulmonary embolus is not seen. A thoracic aortic aneurysm is not noted. Small right pleural effusion. A pericardial effusion is not seen. Moderate to large right middle and right lower lobe consolidation with atelectasis. Right lower lobe bronchus is occluded. Mild lingular opacity The gallbladder is only partially imaged on this exam. The wall may be thickened. If clinically indicated further evaluation ultrasound could be obtained IMPRESSION: Negative for a pulmonary embolism. Moderate to large right pneumonia with atelectasis. Occlusion of the right lower lobe bronchus this should be followed until has cleared to help exclude an endobronchial lesion Small right pleural effusion Follow-up chest x-ray COMPARISON: CT chest February 06, portable chest February 06 TECHNIQUE: AP portable chest image was obtained 02/07/2021 7:54 am . FINDINGS: Dense consolidation in the right lung base remains. There has been no significant change. Left lung field remains clear. Heart size is normal, mostly obscured by the dense right base pneumonia. No measurable pleural effusion and no pneumothorax. No acute bony abnormality seen. No acute aortic findings suspected. IMPRESSION: Dense consolidated pneumonia right lung base not clearly different from comparison. Physical Exam: General: Alert, In no apparent distress HEENT: Atraumatic, PERRLA, Mucous membr. moist/pink Neck: Supple, 2+ carotid pulse no bruit, No LAD Respiratory: Clear to the left side. Decreased to the right base. Currently on 1 to 2 L. 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 PEG tube could not be done yesterday due to acute respiratory failure. CT scan revealed moderate to large right pneumonia with atelectasis. Possible mucous plug to the right lower bronchus. Patient has significantly improved. Continue IV Zosyn. Continue IV fluids. We will add Pepcid, folic acid and thiamine. Aspiration precaution in place. Spoke with respiratory to continue chest percussion therapy. Case discussed at length with surgery. Surgery will plan for PEG tube on Tuesday once the patient has improved. Plan of care discussed in detail with mother. She agrees with plan of care. Continue current medications. Will monitor lab and chest x-ray closely. Maintain oxygen above 93%. Social work also consulted to help arrange for home health, PEG tube feeds. Likely discharge middle to late next week. 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 Likely no need for medication at this time. Echo reviewed with cardiology. Patient may have underlying diastolic heart failure. Continue with current plan of care. Will monitor closely. Ejection fraction normal. Minimal pericardial fusion noted. Likely from his cardiomyopathy and muscular dystrophy. Will monitor this closely. BPD: Continue with IV lorazepam and Cogentin. Once PEG tube in place we will restart Risperdal and Celexa. Code Status: Full code DVT Prophylaxis: Lovenox Advanced Care Planning: Home at discharge with home health and likely caregiver services. Time Spent Managing Pts Care (In Minutes): 55
[2021-02-07] MEDS: ENOXAPARIN 40 MG/0.4 ML SQ SCH (09:49)
[2021-02-07] MEDS: THIAMINE 200 MG/2 ML INJ IVP SCH (10:14)
[2021-02-07] MEDS: FOLIC ACID 1 MG in NA CHLORIDE 0.9% 50 ML IV SCH (10:14)
[2021-02-07] MEDS: FAMOTIDINE 20 MG/2 ML VIAL IV SCH ×2 (10:14→20:26)
[2021-02-07] MEDS: D5 0.9 NS 1,000 ML IV SCH (16:20)
[2021-02-08] MEDS: PIPER/TAZO/NS 3.375gm 3.375 GM/100 ML BAG IVPB SCH ×3 (01:12→16:51)
[2021-02-08 03:52] VITALS: BMI 18.0
[2021-02-08] MEDS ORDERED: MAGNESIUM SULFATE 1 gm IVPB 1 GM/100 ML BAG IV ONE (06:21)
[2021-02-08 06:27] LABS: Absolute Lymphocytes (CBC) 1.1 K/uL (0.7-4.9); Lymphocytes % 21.1 % (15.3-44.8); MPV 7.2 fL (7.6-11.3)
[2021-02-08 07:47] LABS: Potassium 3.7 mmol/L (3.5-5.1); Sodium Level 140 mmol/L (136-145)
[2021-02-08 07:48] LABS: Bicarbonate 39 mmol/L (21-32)
[2021-02-08 07:49] LABS: BUN Blood Urea Nitrogen 1 mg/dL (7-18); Glucose Level 103 mg/dL (74-106)
[2021-02-08 07:55] LABS: ALT/SGPT 40 U/L (12-78); AST/SGOT 22 U/L (15-37)
[2021-02-08 07:56] LABS: Alkaline Phosphatase 52 U/L (45-117); Bilirubin Total 0.4 mg/dL (0.2-1.0)
[2021-02-08 07:57] LABS: Protein, Total 5.6 g/dL (6.4-8.2)
[2021-02-08 07:58] LABS: Albumin 2.1 g/dL (3.4-5.0); Magnesium 2.1 mg/dL (1.8-2.4)
[2021-02-08] MEDS: BENZTROPINE 2 MG/2 ML VIAL IV SCH ×2 (09:00→19:31)
[2021-02-08] MEDS: THIAMINE 200 MG/2 ML INJ IVP SCH (09:00)
[2021-02-08] MEDS: FOLIC ACID 1 MG in NA CHLORIDE 0.9% 50 ML IV SCH (09:32)
[2021-02-08] MEDS: FAMOTIDINE 20 MG/2 ML VIAL IV SCH ×2 (09:35→20:23)
[2021-02-08] MEDS: ENOXAPARIN 40 MG/0.4 ML SQ SCH (09:36)
--- NOTE | 2021-02-08 09:43 | P.PN ---
Subjective Date of Service: 02/08/21 Primary Care Provider: Out of [facility] doctor cardiology Dr. Mott Chief Complaint: Pneumonia, hypoxia Subjective: Improving, Doing well Physical Examination - Vital Signs Temperature: 98.0 F Blood Pressure: 89/52 Pulse: 76 Respirations: 18 Pulse Ox (%): 99 Assessment & Plan Discharge Plan: Home Plan to discharge in: Greater than 2 days Physician Review Additional Text: Modified barium swallow: COMPARISON: No comparisons TECHNIQUE: The patient was given liquid, semi-solid and solid forms of barium. Lateral view fluoroscopic imaging was performed in conjunction with speech pathology service. Findings: Laryngeal penetration cleared with thin by straw, pharyngeal residue vallecular mild with thin, nectar, pudding. Moderate with honey and severe with margy cracker. Pyriform minimal with thin, mild with nectar and honey, moderate with putting. Posterior wall minimal with thin, mild with pudding, moderate to severe with margy cracker. Severe kyphosis, decreased epiglottal inversion, 2- second swallow delay, severe esophageal stasis and dysmotility with pudding and barium tablet. CT Scan: COMPARISON: None. TECHNIQUE: Dynamically enhanced axial 3 mm thick images of the chest were obtained during administration of <100> mL Isovue 370 IV contrast. Coronal and oblique reconstruction images were generated and reviewed. Exam utilizes a protocol for optimal evaluation of pulmonary arterial tree. Maximum intensity projections 3D imaging was utilized All CT scans are performed using dose optimization technique as appropriate and may include automated exposure control or mA/KV adjustment according to patient size. FINDINGS: A pulmonary embolus is not seen. A thoracic aortic aneurysm is not noted. Small right pleural effusion. A pericardial effusion is not seen. Moderate to large right middle and right lower lobe consolidation with atelectasis. Right lower lobe bronchus is occluded. Mild lingular opacity The gallbladder is only partially imaged on this exam. The wall may be thickened. If clinically indicated further evaluation ultrasound could be obtained IMPRESSION: Negative for a pulmonary embolism. Moderate to large right pneumonia with atelectasis. Occlusion of the right lower lobe bronchus this should be followed until has cleared to help exclude an endobronchial lesion Small right pleural effusion Follow-up chest x-ray COMPARISON: CT chest February 06, portable chest February 06 TECHNIQUE: AP portable chest image was obtained 02/07/2021 7:54 am . FINDINGS: Dense consolidation in the right lung base remains. There has been no significant change. Left lung field remains clear. Heart size is normal, mostly obscured by the dense right base pneumonia. No measurable pleural effusion and no pneumothorax. No acute bony abnormality seen. No acute aortic findings suspected. IMPRESSION: Dense consolidated pneumonia right lung base not clearly different from comparison. Physical Exam: General: Alert, In no apparent distress, patient talkative today. HEENT: Neck supple Respiratory: Clear to the left side. Decreased to the right base. Currently on 1.5 L Cardiovascular: Regular rate/rhythm, Normal S1 S2 Capillary refill: <2 Seconds Gastrointestinal: Normal bowel sounds, No tenderness Musculoskeletal: No tenderness Integumentary: No rashes Neurological: Normal affect, Other (Wheelchair-bound), Abnormal speech, Abnormal strength, Abnormal tone Impression: Acute hypoxic respiratory failure secondary to right lower lobe pneumonia likely aspiration with noted abnormal modified barium swallow showing severe esophageal stasis, dysmotility and decreased epiglottal inversion with worsening dysphagia Muscular dystrophy Cardiomyopathy with underlying chronic diastolic CHF secondary to muscular dystrophy Bipolar disorder Plan Acute hypoxic respiratory failure secondary to large consolidated right lower lobe pneumonia likely aspiration with noted abnormal modified barium swallow showing severe esophageal stasis, dysmotility and decreased epiglottal inversion with worsening dysphagia: Patient doing well at this morning. No complaints noted. Patient remains on 1.5 L per nasal cannula. Continue IV Zosyn and IV fluids. Patient remains on IV Pepcid, folic acid and thiamine. Aspiration precaution in place. Surgery will plan for PEG tube on Tuesday. Plan of care discussed in detail with mother. She agrees with plan of care. Continue current medications. Will monitor lab and chest x-ray closely. Maintain oxygen above 93%. Social work also consulted to help arrange for home health, PEG tube feeds. Likely discharge middle to late week. 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 Likely no need for medication at this time. Echo reviewed with cardiology. Patient may have underlying diastolic heart failure. Continue with current plan of care. Will monitor closely. Ejection fraction normal. Minimal pericardial fusion noted. Likely from his cardiomyopathy and muscular dystrophy. Will monitor this closely. BPD: Continue with IV lorazepam and Cogentin. Once PEG tube in place we will restart Risperdal and Celexa. Code Status: Full code DVT Prophylaxis: Lovenox Advanced Care Planning: Home at discharge with home health and likely caregiver services. Time Spent Managing Pts Care (In Minutes): 55
[2021-02-08] MEDS: D5 0.9 NS 1,000 ML IV SCH (16:57)
[2021-02-09] MEDS: PIPER/TAZO/NS 3.375gm 3.375 GM/100 ML BAG IVPB SCH ×3 (01:00→16:00)
[2021-02-09 04:12] LABS: Basophils % 0.4 % (0-1.3); Hematocrit 30.6 % (39.6-49.0); Lymphocytes % 19.8 % (15.3-44.8); MPV 7.5 fL (7.6-11.3); RBC Red Blood Cell Count 3.46 M/uL (4.33-5.43)
[2021-02-09 04:55] LABS: BUN Blood Urea Nitrogen 1 mg/dL (7-18); Bicarbonate 36 mmol/L (21-32); Glucose Level 96 mg/dL (74-106); Magnesium 2.1 mg/dL (1.8-2.4); Potassium 3.3 mmol/L (3.5-5.1); Sodium Level 142 mmol/L (136-145)
--- NOTE | 2021-02-09 05:56 | P.PN ---
Subjective Date of Service: 02/09/21 Primary Care Provider: Out of [facility] doctor cardiology Dr. Mott Chief Complaint: Pneumonia, hypoxia Subjective: Doing well Physical Examination - Vital Signs Temperature: 98.3 F Blood Pressure: 108/56 Pulse: 80 Respirations: 18 Pulse Ox (%): 96 Assessment & Plan Discharge Plan: Home Plan to discharge in: Greater than 2 days Physician Review Additional Text: Modified barium swallow: COMPARISON: No comparisons TECHNIQUE: The patient was given liquid, semi-solid and solid forms of barium. Lateral view fluoroscopic imaging was performed in conjunction with speech pathology service. Findings: Laryngeal penetration cleared with thin by straw, pharyngeal residue vallecular mild with thin, nectar, pudding. Moderate with honey and severe with margy c racker. Pyriform minimal with thin, mild with nectar and honey, moderate with putting. Posterior wall minimal with thin, mild with pudding, moderate to severe with margy cracker. Severe kyphosis, decreased epiglottal inversion, 2- second swallow delay, severe esophageal stasis and dysmotility with pudding and barium tablet. CT Scan: COMPARISON: None. TECHNIQUE: Dynamically enhanced axial 3 mm thick images of the chest were obtained during administration of <100> mL Isovue 370 IV contrast. Coronal and oblique reconstruction images were generated and reviewed. Exam utilizes a protocol for optimal evaluation of pulmonary arterial tree. Maximum intensity projections 3D imaging was utilized All CT scans are performed using dose optimization technique as appropriate and may include automated exposure control or mA/KV adjustment according to patient size. FINDINGS: A pulmonary embolus is not seen. A thoracic aortic aneurysm is not noted. Small right pleural effusion. A pericardial effusion is not seen. Moderate to large right middle and right lower lobe consolidation with atelectasis. Right lower lobe bronchus is occluded. Mild lingular opacity The gallbladder is only partially imaged on this exam. The wall may be thickened. If clinically indicated further evaluation ultrasound could be obtained IMPRESSION: Negative for a pulmonary embolism. Moderate to large right pneumonia with atelectasis. Occlusion of the right lower lobe bronchus this should be followed until has cleared to help exclude an endobronchial lesion Small right pleural effusion Follow-up chest x-ray COMPARISON: Chest Single View dated 02/07/2021; Chest Single View dated 02/06/2021; Chest Single View dated 02/04/2021; Chest For Pe Angio dated 02/06/2021 FINDINGS: Portable technique limits examination quality. The large right lung base consolidation appears stable since 02/07/2021 study. Emphysematous left lung is noted. The heart is normal in size. No displaced fractures. Physical Exam: General: Alert, In no apparent distress, patient talkative today. HEENT: Neck supple Respiratory: Clear to the left side. Decreased to the right base. Currently on 1.5 L Cardiovascular: Regular rate/rhythm, Normal S1 S2 Capillary refill: <2 Seconds Gastrointestinal: Normal bowel sounds, No tenderness Musculoskeletal: No tenderness Integumentary: No rashes Neurological: Normal affect, Other (Wheelchair-bound), Abnormal speech, Abnormal strength, Abnormal tone Impression: Acute hypoxic respiratory failure secondary to right lower lobe pneumonia likely aspiration with noted abnormal modified barium swallow showing severe esophageal stasis, dysmotility and decreased epiglottal inversion with worsening dysphagia Muscular dystrophy Cardiomyopathy with underlying chronic diastolic CHF secondary to muscular dystrophy Bipolar disorder Plan Acute hypoxic respiratory failure secondary to large consolidated right lower lobe pneumonia likely aspiration with noted abnormal modified barium swallow showing severe esophageal stasis, dysmotility and decreased epiglottal inversion with worsening dysphagia: Patient doing well at this morning. No complaints noted. Patient remains on 1.5 L per nasal cannula. Continue IV Zosyn and IV fluids. Patient remains on IV Pepcid, folic acid and thiamine. Aspiration precaution in place. PEG tube scheduled for today. Case discussed with surgery. Plan of care discussed with patient and mother. Maintain oxygen above 93%. Social work also consulted to help arrange for home health, PEG tube feeds. Likely discharge middle to late week. 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 Likely no need for medication at this time. Echo reviewed with cardiology. Patient may have underlying diastolic heart failure. Continue with current plan of care. Will monitor closely. Ejection fraction normal. Minimal pericardial fusion noted. Likely from his cardiomyopathy and muscular dystrophy. Will monitor this closely. BPD: Continue with IV lorazepam and Cogentin. Once PEG tube in place we will restart Risperdal and Celexa. Code Status: Full code DVT Prophylaxis: Lovenox Advanced Care Planning: Home at discharge with home health and likely caregiver services. Time Spent Managing Pts Care (In Minutes): 55
[2021-02-09] MEDS: KCL 20 MEQ/100 mL IVPB 20 MEQ/100 ML BAG IV SCH ×2 (06:19→08:50)
[2021-02-09] MEDS: FOLIC ACID 1 MG in NA CHLORIDE 0.9% 50 ML IV SCH (08:00)
--- NOTE | 2021-02-09 08:05 | ECHO ---
HEIGHT: 5 ft 4 in WEIGHT: 105 lb 0 oz DATE OF STUDY: 02/06/[address]: Tristen Rodriguez DO 2-DIMENSIONAL: YES M.MODE: YES DOPPLER: YES COLOR FLOW: YES TDS: NO PORTABLE: NO DEFINITY: NO BUBBLE STUDY: NO DIAGNOSIS: CHEST PAIN CARDIAC HISTORY: CATHERIZATION: SURGERY: PROSTHETIC VALVE: PACEMAKER: MEASUREMENTS (cm) DIASTOLIC (NORMALS) SYSTOLIC (NORMALS) IVSd 0.7 (0.6-1.2) LA Diam 3.0 (1.9-4.0) LVEF 58% LVIDd 5.1 (3.5-5.7) LVIDs 3.5 (2.0-3.5) %FS 30% LVPWd 0.7 (0.6-1.2) Ao Diam 3.1 (2.0-3.7) 2 DIMENSIONAL ASSESSMENT: RIGHT ATRIUM: NORMAL LEFT ATRIUM: NORMAL RIGHT VENTRICLE: NORMAL LEFT VENTRICLE: NORMAL TRICUSPID VALVE: NORMAL MITRAL VALVE: NORMAL PULMONIC VALVE: NORMAL AORTIC VALVE: NORMAL PERICARDIAL EFFUSION: TRACE AORTIC ROOT: NORMAL LEFT VENTRICULAR WALL MOTION: NORMAL EJECTION FRACTION - DECREASED LEFT VENTRICULAR COMPLIANCE. DOPPLER/COLOR FLOW: NORMAL. COMMENTS: TRACE OF PERICARDIAL EFFUSION. NORMAL LEFT VENTRICULAR SIZE. DECREASED LEFT VENTRICULAR COMPLIANCE. NORMAL OVERALL EJECTION FRACTION. TECHNOLOGIST: JUAN ORTIZ
[2021-02-09] MEDS: FAMOTIDINE 20 MG/2 ML VIAL IV SCH ×2 (08:47→21:11)
[2021-02-09] MEDS: THIAMINE 200 MG/2 ML INJ IVP SCH (08:48)
[2021-02-09] MEDS: ENOXAPARIN 40 MG/0.4 ML SQ SCH (08:48)
[2021-02-09] MEDS: BENZTROPINE 2 MG/2 ML VIAL IV SCH ×2 (08:49→21:00)
--- NOTE | 2021-02-09 09:02 | RAD REPORT ---
EXAM DESCRIPTION: RAD - Chest Single View - 02/09/2021 6:22 am CLINICAL HISTORY: follow up pneumonia Chest pain. COMPARISON: Chest Single View dated 02/07/2021; Chest Single View dated 02/06/2021; Chest Single View d ated 02/04/2021; Chest For Pe Angio dated 02/06/2021 FINDINGS: Portable technique limits examination quality. The large right lung base consolidation appears stable since 02/07/2021 study. Emphysematous left wesley g is noted. The heart is normal in size. No displaced fractures.
[2021-02-09] MEDS ORDERED: propofoL 200 MG/20 ML VIAL IV ONE ×2 (10:27→11:06)
[2021-02-09] MEDS ORDERED: LIDOCAINE 1% MPF 5 ML VIAL ONE (10:27)
[2021-02-09] MEDS ORDERED: Ringers Lactate 1,000 ML IV ONE (10:45)
--- NOTE | 2021-02-09 11:02 | ENDO RPT ---
[address], [address] EGD WITH PEG PROCEDURE REPORT EXAM DATE: 02/09/2021 PATIENT NAME: Carter Zapata MR #: [id number] BIRTHDATE: 1980 ATTENDING: Jasiel Alvarado DR STATUS: inpatient - 7 FARM AGENT: Zayda Hairston RN and Sindhu Dominique CST INDICATIONS: The patient is a 40 yr old Male here for an EGD with PEG due to dyspepsia, dysphagia, Aspiration, and malnutrition PROCEDURE PERFORMED: EGD-PEG MEDICATIONS: Per Anesthesia. TOPICAL ANESTHETIC: none CONSENT: The patient understands the risks and benefits of the procedure and understands that these risks include, but are not limited to: sedation, allergic reaction, infection, perforation and/or bleeding. Alternative means of evaluation and treatment include, among others: physical exam, x-rays, and/or surgical intervention. The patient elects to proceed with this endoscopic procedure. DESCRIPTION OF PROCEDURE: During intra-op preparation period all mechanical medical equipment was checked for proper function. Hand hygiene and appropriate measures for infection prevention was taken. After the risks, benefits and alternatives of the procedure were thoroughly explained, Informed consent was verified, confirmed and timeout was successfully executed by the treatment team. The patient was anesthetized with topical anesthesia and the Pentax EG-2990i ([id number]) endoscope was introduced through the mouth and advanced to the first portion of the duodenum. The instrument was slowly withdrawn as the mucosa was fully examined. The stomach was then inflated with air, and by a combination of transillumination and manual palpation, the site for the gastrostomy tube placement was selected and marked on the anterior abdominal wall. The skin of the anterior abdomen was surgically prepped and draped with sterile towels. Utilizing strict sterile technique, the selected site was then anesthetized with 1% xylocaine by injection into the skin and subcutaneous tissue. A 1 cm incision was made through the skin and subcutaneous tissue, and the needle/cannula assembly was then passed through the abdominal wall and through the anterior wall of the stomach, maintaining visualization with the endoscope. A snare device previously placed through the instrument channel was then opened and placed around the cannula, the needle was removed, and the insertion wire was passed through the cannula and into the stomach lumen. The snare was then loosened from the cannula, and repositioned to snare the insertion wire. The snare was then pulled up to the endoscope distal tip, and the scope was then withdrawn bringing with it the snare and insertion wire. The insertion wire was then released from the snare, and then loop-attached to the PEG PULL gastrostomy tube. Using the pull technique, the G-tube was then pulled into place by traction on the insertion wire at the abdominal wall end. The G-tube insertion site was then cleansed once again, and the external bolster was placed over the tube to secure it to the abdominal wall. A sterile dressing was then applied, and the procedure terminated. Retroflexed views revealed no abnormalities. The gastroscope was then slowly withdrawn and removed. ADVERSE EVENT: There were no complications. IMPRESSIONS: RECOMMENDATIONS: 1. anti-reflux regimen 2. follow-up: office 1 week(s) 3. avoid NSAIDS 4. begin feeding tomorrow 5. follow PEG suggestions REPEAT EXAM: Jasiel Alvarado DR eSigned: Jasiel Alvarado DR 02/09/2021 11:01 AM cc: CPT CODES: ICD9 CODES: PATIENT NAME: Carter Zapata MR#: [id number]
[2021-02-09] MEDS: D5 0.9 NS 1,000 ML IV SCH ×2 (15:24)
[2021-02-09] MEDS: MORPHINE 2 MG/ML SYR IV PRN ×2 (15:32→21:11)
[2021-02-10] MEDS: PIPER/TAZO/NS 3.375gm 3.375 GM/100 ML BAG IVPB SCH ×3 (02:14→16:00)
[2021-02-10] MEDS: MORPHINE 2 MG/ML SYR IV PRN ×4 (02:15→23:09)
[2021-02-10 06:17] LABS: Absolute Lymphocytes (CBC) 0.8 K/uL (0.7-4.9); Basophils % 0.5 % (0-1.3); Lymphocytes % 10.3 % (15.3-44.8); MPV 7.2 fL (7.6-11.3); RBC Red Blood Cell Count 3.62 M/uL (4.33-5.43)
--- NOTE | 2021-02-10 06:19 | P.PN ---
Subjective Date of Service: 02/10/21 Primary Care Provider: Out of [facility] doctor cardiology Dr. Mott Chief Complaint: Pneumonia, hypoxia Subjective: Improving, Doing well Physical Examination - Vital Signs Temperature: 98.1 F Blood Pressure: 106/61 Pulse: 65 Respirations: 19 Pulse Ox (%): 99 - Studies Microbiology Data (last 24 hrs): 02/05/21 00:04 Blood - Blood Aerobic Blood Culture - Final No growth in 5 days. 02/05/21 00:04 Blood - Blood Anaerobic Blood Culture - Final No growth in 5 days. 02/04/21 23:51 Blood - Blood Aerobic Blood Culture - Final No growth in 5 days. 02/04/21 23:51 Blood - Blood Anaerobic Blood Culture - Final No growth in 5 days. Assessment & Plan Discharge Plan: Home Plan to discharge in: Greater than 2 days Physician Review Additional Text: Modified barium swallow: COMPARISON: No comparisons TECHNIQUE: The patient was given liquid, semi-solid and solid forms of barium. Lateral view fluoroscopic imaging was performed in conjunction with speech pathology service. Findings: Laryngeal penetration cleared with thin by straw, pharyngeal residue vallecular mild with thin, nectar, pudding. Moderate with honey and severe with margy cracker. Pyriform minimal with thin, mild with nectar and honey, moderate with putting. Posterior wall minimal with thin, mild with pudding, moderate to severe with margy cracker. Severe kyphosis, decreased epiglottal inversion, 2- second swallow delay, severe esophageal stasis and dysmotility with pudding and barium tablet. CT Scan: COMPARISON: None. TECHNIQUE: Dynamically enhanced axial 3 mm thick images of the chest were obtained during administration of <100> mL Isovue 370 IV contrast. Coronal and oblique reconstruction images were generated and reviewed. Exam utilizes a protocol for optimal evaluation of pulmonary arterial tree. Maximum intensity projections 3D imaging was utilized All CT scans are performed using dose optimization technique as appropriate and may include automated exposure control or mA/KV adjustment according to patient size. FINDINGS: A pulmonary embolus is not seen. A thoracic aortic aneurysm is not noted. Small right pleural effusion. A pericardial effusion is not seen. Moderate to large right middle and right lower lobe consolidation with atelectasis. Right lower lobe bronchus is occluded. Mild lingular opacity The gallbladder is only partially imaged on this exam. The wall may be thickened. If clinically indicated further evaluation ultrasound could be obtained IMPRESSION: Negative for a pulmonary embolism. Moderate to large right pneumonia with atelectasis. Occlusion of the right lower lobe bronchus this should be followed until has cleared to help exclude an endobronchial lesion Small right pleural effusion Follow-up chest x-ray COMPARISON: Chest Single View dated 02/07/2021; Chest Single View dated 02/06/2021; Chest Single View dated 02/04/2021; Chest For Pe Angio dated 02/06/2021 FINDINGS: Portable technique limits examination quality. The large right lung base consolidation appears stable since 02/07/2021 study. Emphysematous left lung is noted. The heart is normal in size. No displaced fractures. Physical Exam: General: Alert, In no apparent distress, patient talkative today. HEENT: Neck supple Respiratory: Clear to the left side. Decreased to the right base. Currently on 1.5 L Cardiovascular: Regular rate/rhythm, Normal S1 S2 Capillary refill: <2 Seconds Gastrointestinal: Normal bowel sounds, No tenderness Musculoskeletal: No tenderness Integumentary: No rashes Neurological: Normal affect, Other (Wheelchair-bound), Abnormal speech, Abnormal strength, Abnormal tone Impression: Acute hypoxic respiratory failure secondary to right lower lobe pneumonia likely aspiration with noted abnormal modified barium swallow showing severe esophageal stasis, dysmotility and decreased epiglottal inversion with worsening dysphagia Muscular dystrophy Cardiomyopathy with underlying chronic diastolic CHF secondary to muscular dystrophy Bipolar disorder Plan Acute hypoxic respiratory failure secondary to large consolidated right lower l obe pneumonia likely aspiration with noted abnormal modified barium swallow showing severe esophageal stasis, dysmotility and decreased epiglottal inversion with worsening dysphagia: Patient did well overnight. Patient started on PEG tube feeds. Case discussed with surgery. Continue to monitor residuals. Slowly increase tube feeds to reach his maximum an appropriate amount. Dietary to help with this. Aspiration precaution in place. Recheck chest x-ray today. Continue IV Zosyn and IV fluids. Patient remains on IV Pepcid, folic acid and thiamine. Will transition IV medication to oral through PEG tube once patient taking feeds well. Monitor and trend lab. Case discussed with mother. Social work to help with needs at discharge. I will turn the service over to the hosp italist team tomorrow. I will go plan of care with him. 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 Likely no need for medication at this time. Echo reviewed with cardiology. Patient may have underlying diastolic heart failure. Continue with current plan of care. Will monitor closely. Ejection fraction normal. Minimal pericardial fusion noted. Likely from his cardiomyopathy and muscular dystrophy. Will monitor this closely. BPD: Continue with IV lorazepam and Cogentin. Once PEG tube in place we will restart Risperdal and Celexa. Code Status: Full code DVT Prophylaxis: Lovenox Advanced Care Planning: Home at discharge with home health and likely caregiver services. Time Spent Managing Pts Care (In Minutes): 55
[2021-02-10 06:33] LABS: BUN Blood Urea Nitrogen < 1 mg/dL (7-18); Bicarbonate 37 mmol/L (21-32); Glucose Level 129 mg/dL (74-106); Sodium Level 139 mmol/L (136-145)
[2021-02-10] MEDS: FOLIC ACID 1 MG in NA CHLORIDE 0.9% 50 ML IV SCH (08:00)
[2021-02-10] MEDS: ENOXAPARIN 40 MG/0.4 ML SQ SCH (08:16)
[2021-02-10] MEDS: FAMOTIDINE 20 MG/2 ML VIAL IV SCH ×2 (08:17→22:47)
[2021-02-10] MEDS: THIAMINE 200 MG/2 ML INJ IVP SCH (08:17)
[2021-02-10] MEDS: BENZTROPINE 2 MG/2 ML VIAL IV SCH (08:17)
[2021-02-10] MEDS: JEVITY 1.5 CAL LIQUID 1,000 ML BOT RTH SCH (08:18)
[2021-02-10] MEDS: D5 0.9 NS 1,000 ML IV SCH ×2 (08:22→15:31)
--- NOTE | 2021-02-10 16:41 | RAD REPORT ---
EXAM DESCRIPTION: RAD - Chest Single View - 02/10/2021 4:09 pm CLINICAL HISTORY: follow up aspiration COMPARISON: Chest Single View dated 02/09/2021; Chest Single View dated 02/07/2021; Chest Single View dated 02/06/2021; Chest Single View dated 02/04/2021; Chest For Pe Angio dated 02/06/2021 FINDINGS: Persistent right lower lobe consolidation and a small volume of pleural fluid which is sim ilar to prior. The left lung is clear. Suspect cardiomegaly but partially obscured.No acute osseous a bnormality. No significant pleural effusions or pneumothorax. IMPRESSION: No significant change from 02/09/2021 with persistent right basilar consolidation/effusi on. The left lung is clear appear
[2021-02-10] MEDS ORDERED: BENZTROPINE MESYLATE 2 MG PO SCH (21:00)
[2021-02-10] MEDS: BENZTROPINE 1 MG TAB PO SCH (21:00)
[2021-02-10] MEDS ORDERED: RISPERIDONE 4 MG PO SCH (21:00)
[2021-02-10] MEDS: RISPERIDONE 1 MG TABLET PO SCH (22:47)
[2021-02-11] MEDS: PIPER/TAZO/NS 3.375gm 3.375 GM/100 ML BAG IVPB SCH ×2 (01:33→11:46)
[2021-02-11] MEDS: MORPHINE 2 MG/ML SYR IV PRN ×2 (04:23→11:01)
[2021-02-11 04:27] LABS: Absolute Lymphocytes (CBC) 1.1 K/uL (0.7-4.9); Basophils % 0.7 % (0-1.3); Hematocrit 34.1 % (39.6-49.0); Lymphocytes % 14.2 % (15.3-44.8); MPV 7.4 fL (7.6-11.3); RBC Red Blood Cell Count 3.85 M/uL (4.33-5.43)
[2021-02-11 05:38] LABS: BUN Blood Urea Nitrogen 2 mg/dL (7-18); Bicarbonate 40 mmol/L (21-32); Glucose Level 160 mg/dL (74-106); Magnesium 1.9 mg/dL (1.8-2.4); Potassium 3.6 mmol/L (3.5-5.1); Sodium Level 142 mmol/L (136-145)
[2021-02-11] MEDS: BENZTROPINE 1 MG TAB PO SCH ×2 (09:00→21:00)
[2021-02-11] MEDS ORDERED: POTASSIUM 25 MEQ EFFERV TAB PO ONE (09:00)
--- NOTE | 2021-02-11 10:20 | P.PN ---
Subjective Date of Service: 02/11/21 Primary Care Provider: Out of [facility] doctor cardiology Dr. Mott Chief Complaint: Pneumonia, hypoxia Subjective: Improving (Patient tolerating tube feedings.) Physical Examination - Vital Signs Temperature: 98.7 F Blood Pressure: 100/59 Pulse: 106 Respirations: 18 Pulse Ox (%): 94 - Physical Exam General: Alert, In no apparent distress, Cooperative Respiratory: Diminished Gastrointestinal: Soft and benign, Non-distended, No ascites, No masses, No rebound, No guarding, Tenderness (@ PEG tube site - appropriate and minimal) Assessment And Plan - Plan - continue tube feeding per dietary recs - follow up in 1-2 weeks - ok to DC when pulmonary issues resolved Physician Review Additional Text: Modified barium swallow: COMPARISON: No comparisons TECHNIQUE: The patient was given liquid, semi-solid and solid forms of barium. Lateral view fluoroscopic imaging was performed in conjunction with speech pathology service. Findings: Laryngeal penetration cleared with thin by straw, pharyngeal residue vallecular mild with thin, nectar, pudding. Moderate with honey and severe with margy cracker. Pyriform minimal with thin, mild with nectar and honey, moderate with putting. Posterior wall minimal with thin, mild with pudding, moderate to severe with margy cracker. Severe kyphosis, decreased epiglottal inversion, 2- second swallow delay, severe esophageal stasis and dysmotility with pudding and barium tablet. CT Scan: COMPARISON: None. TECHNIQUE: Dynamically enhanced axial 3 mm thick images of the chest were obtained during administration of <100> mL Isovue 370 IV contrast. Coronal and oblique reconstruction images were generated and reviewed. Exam utilizes a protocol for optimal evaluation of pulmonary arterial tree. Maximum intensity projections 3D imaging was utilized All CT scans are performed using dose optimization technique as appropriate and may include automated exposure control or mA/KV adjustment according to patient size. FINDINGS: A pulmonary embolus is not seen. A thoracic aortic aneurysm is not noted. Small right pleural effusion. A pericardial effusion is not seen. Moderate to large right middle and right lower lobe consolidation with atelectasis. Right lower lobe bronchus is occluded. Mild lingular opacity The gallbladder is only partially imaged on this exam. The wall may be thickened. If clinically indicated further evaluation ultrasound could be obtained IMPRESSION: Negative for a pulmonary embolism. Moderate to large right pneumonia with atelectasis. Occlusion of the right lower lobe bronchus this should be followed until has cleared to help exclude an endobronchial lesion Small right pleural effusion Follow-up chest x-ray COMPARISON: Chest Single View dated 02/07/2021; Chest Single View dated 02/06/2021; Chest Single View dated 02/04/2021; Chest For Pe Angio dated 02/06/2021 FINDINGS: Portable technique limits examination quality. The large right lung base consolidation appears stable since 02/07/2021 study. Emphysematous left lung is noted. The heart is normal in size. No displaced fractures. Physical Exam: General: Alert, In no apparent distress, patient talkative today. HEENT: Neck supple Respiratory: Clear to the left side. Decreased to the right base. Currently on 1.5 L Cardiovascular: Regular rate/rhythm, Normal S1 S2 Capillary refill: <2 Seconds Gastrointestinal: Normal bowel sounds, No tenderness Musculoskeletal: No tenderness Integumentary: No rashes Neurological: Normal affect, Other (Wheelchair-bound), Abnormal speech, Abnormal strength, Abnormal tone Impression: Acute hypoxic respiratory failure secondary to right lower lobe pneumonia likely aspiration with noted abnormal modified barium swallow showing severe esophageal stasis, dysmotility and decreased epiglottal inversion with worsening dysphagia Muscular dystrophy Cardiomyopathy with underlying chronic diastolic CHF secondary to muscular dystrophy Bipolar disorder Plan Acute hypoxic respiratory failure secondary to large consolidated right lower lobe pneumonia likely aspiration with noted abnormal modified barium swallow showing severe esophageal stasis, dysmotility and decreased epiglottal inversion with worsening dysphagia: Patient did well overnight. Patient started on PEG tube feeds. Case discussed with surgery. Continue to monitor residuals. Slowly increase tube feeds to reach his maximum an appropriate amount. Dietary to help with this. Aspiration precaution in place. Recheck chest x-ray today. Continue IV Zosyn and IV fluids. Patient remains on IV Pepcid, folic acid and thiamine. Will transition IV medication to oral through PEG tube once patient taking feeds well. Monitor and trend lab. Case discussed with mother. Social work to help with needs at discharge. I will turn the service over to the hospitalist team tomorrow. I will go plan of care with him. 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 Likely no need for medication at this time. Echo reviewed with cardiology. Patient may have underlying diastolic heart failure. Continue with current plan of care. Will monitor closely. Ejection fraction normal. Minimal pericardial fusion noted. Likely from his cardiomyopathy and muscular dystrophy. Will monitor this closely. BPD: Continue with IV lorazepam and Cogentin. Once PEG tube in place we will restart Risperdal and Celexa. Code Status: Full code DVT Prophylaxis: Lovenox Advanced Care Planning: Home at discharge with home health and likely caregiver services.
[2021-02-11] MEDS: CITALOPRAM 10 MG TABLET PO SCH (10:40)
[2021-02-11] MEDS: FAMOTIDINE 20 MG/2 ML VIAL IV SCH (10:41)
[2021-02-11] MEDS: FOLIC ACID 1 MG in NA CHLORIDE 0.9% 50 ML IV SCH (10:42)
[2021-02-11] MEDS: RISPERIDONE 1 MG TABLET PO SCH ×2 (10:42→21:01)
[2021-02-11] MEDS: THIAMINE 200 MG/2 ML INJ IVP SCH (10:42)
[2021-02-11] MEDS: D5 0.9 NS 1,000 ML IV SCH (12:00)
[2021-02-11] MEDS: HYDROCORTISONE 2.5% RECT CR PR SCH ×3 (14:30→21:02)
[2021-02-11 17:57] LABS: Blood Gas Oxyhemoglobin 94.6 % (94-97); Blood O2 Saturation 96.7 % (92-98.5)
--- NOTE | 2021-02-11 18:38 | P.CNS ---
Date of Consult: 02/11/21 (TV) Primary Care Provider: Out of [facility] doctor cardiology Dr. Mott Chief Complaint: Pneumonia, hypoxia History of Present Illness: Age 40 AW pneumonia, Mucular dystrophy, AW SOB , hypoxemia/ S/p PEG tube. Resp failure/ Allergies No Known Allergies Allergy (Unverified 02/05/21 02:54) Home Medications: Benztropine Mesylate [Cogentin] 2 mg PO BID 02/05/21 Carvedilol [Coreg] 25 mg PO BID 02/05/21 Citalopram [Celexa] 20 mg PO DAILY 02/05/21 LORazepam [Ativan*] 1 mg PO PRN PRN 02/05/21 Sacubitril/Valsartan [Entresto 24 mg-26 mg Tablet] 0.5 tab PO BID 02/05/21 Spironolactone 12.5 mg PO DAILY 02/05/21 risperiDONE [Risperdal] 4 mg PO BID 02/05/21 - Past Medical/Surgical History Diabetic: No -: Muscular dystrophy -: Cardiomyopathy -: BPD -: Diastolic dysfuntion -: none Psychosocial/ Personal History: Patient is disabled, lives with mother who is his power of health care attorney - Family History Mother Medical History: Hypertension - Social History Alcohol use: No CD- Drugs: No Caffeine use: No Place of Residence: Home Physical Examination Temp Pulse Resp BP Pulse Ox 98.5 F 99 H 17 121/65 99 02/11/21 12:00 02/11/21 12:00 02/11/21 12:00 02/11/21 12:00 02/11/21 12:00 - Problems (1) Respiratory failure Current Visit: Yes Status: Acute Plan: Dx muscular dystrophy AW R ll pneumonia, Presune C respiratory failure from muscular dystrophy. Repeat ABG confirmed hypercapnea. Avoid sedatives and narcotics, Change to Augmentin and DOXY , Dc Zosyn CT reviewed. Airspace disease in RLL. Chest PT F/u CXRY in 2 wks/chest precussion Qualifiers: Chronicity: acute on chronic
[2021-02-11] MEDS ORDERED: KETOROLAC 30 MG/ML INJ IV ONE (19:36)
[2021-02-11] MEDS: ALBUTEROL 2.5 MG/3 ML NEB SOL NEB SCH (19:50)
[2021-02-11] MEDS: AMOX/K CLAV 500 MG TAB PO SCH (21:01)
[2021-02-11] MEDS: DOXYCYCLINE 100 MG CAP PO SCH (21:01)
[2021-02-12] MEDS: ALBUTEROL 2.5 MG/3 ML NEB SOL NEB SCH ×2 (03:45→08:00)
[2021-02-12 05:53] LABS: Absolute Lymphocytes (CBC) 1.1 K/uL (0.7-4.9); Basophils % 0.6 % (0-1.3); Hematocrit 34.9 % (39.6-49.0); Lymphocytes % 12.9 % (15.3-44.8); MPV 7.6 fL (7.6-11.3); RBC Red Blood Cell Count 3.94 M/uL (4.33-5.43)
[2021-02-12 06:03] LABS: BUN Blood Urea Nitrogen 4 mg/dL (7-18); Bicarbonate 37 mmol/L (21-32); Glucose Level 121 mg/dL (74-106); Magnesium 2.2 mg/dL (1.8-2.4); Sodium Level 141 mmol/L (136-145)
[2021-02-12] MEDS ORDERED: NA CHLORIDE 0.9% 250 ML IV ONE (06:27)
[2021-02-12] MEDS: NA CHLORIDE 0.9% 1,000 ML IV SCH (06:43)
--- NOTE | 2021-02-12 08:15 | RAD REPORT ---
EXAM DESCRIPTION: RAD - Chest Single View - 02/12/2021 5:38 am CLINICAL HISTORY: resp failure COMPARISON: Chest Single View dated 02/10/2021; Chest Single View dated 02/09/2021; Chest Single View dated 02/07/2021; Chest Single View dated 02/06/2021 FINDINGS: Similar appearance of the right-sided pleural effusion and underlying consolidation. The l eft lung remains clear. The heart size is partially obscured but similar.No acute osseous abnormality . Right pleural effusion. IMPRESSION: No change compared with 02/10/2021 with right-sided pleural effusion and underlying cons olidation/atelectasis. Left lung remains clear.
[2021-02-12] MEDS: CITALOPRAM 10 MG TABLET PO SCH (08:59)
[2021-02-12] MEDS: RISPERIDONE 1 MG TABLET PO SCH ×2 (08:59→21:09)
[2021-02-12] MEDS: BENZTROPINE 1 MG TAB PO SCH ×2 (09:00→21:00)
[2021-02-12] MEDS: DOXYCYCLINE 100 MG CAP PO SCH ×2 (09:00→21:10)
[2021-02-12] MEDS: AMOX/K CLAV 500 MG TAB PO SCH ×2 (09:00→21:10)
[2021-02-12] MEDS: HYDROCORTISONE 2.5% RECT CR PR SCH ×3 (09:01→21:12)
[2021-02-12] MEDS: LEVALBUTEROL 0.63 MG/3 ML NEB NEB SCH ×3 (09:05→20:05)
[2021-02-12] MEDS: FOLIC ACID 1 MG in NA CHLORIDE 0.9% 50 ML IV SCH (10:10)
[2021-02-12] MEDS ORDERED: METOPROLOL TAR 25 MG TAB PO ONE (10:30)
[2021-02-12] MEDS: METOPROLOL TAR 25 MG TAB PO SCH (18:00)
[2021-02-12] MEDS ORDERED: DIPHENHYDRAMINE 50 MG/ML VIAL IV ONE (20:34)
[2021-02-13] MEDS: JEVITY 1.5 CAL LIQUID 1,000 ML BOT RTH SCH (00:03)
[2021-02-13] MEDS: NA CHLORIDE 0.9% 1,000 ML IV SCH ×3 (00:57→21:52)
[2021-02-13] MEDS: LEVALBUTEROL 0.63 MG/3 ML NEB NEB SCH ×4 (02:15→20:00)
[2021-02-13] MEDS: METOPROLOL TAR 25 MG TAB PO SCH ×3 (05:54→21:27)
[2021-02-13] MEDS: BENZTROPINE 1 MG TAB PO SCH ×2 (09:00→21:05)
[2021-02-13] MEDS: DOXYCYCLINE 100 MG CAP PO SCH ×2 (10:04→21:05)
[2021-02-13] MEDS: CITALOPRAM 10 MG TABLET PO SCH (10:05)
[2021-02-13] MEDS: AMOX/K CLAV 500 MG TAB PO SCH ×2 (10:05→21:05)
[2021-02-13] MEDS: RISPERIDONE 1 MG TABLET PO SCH ×2 (10:05→21:05)
[2021-02-13] MEDS: FOLIC ACID 1 MG in NA CHLORIDE 0.9% 50 ML IV SCH (10:06)
[2021-02-13] MEDS: HYDROCORTISONE 2.5% RECT CR PR SCH ×3 (10:06→21:00)
--- NOTE | 2021-02-13 10:30 | P.PN ---
Subjective Date of Service: 02/11/21 Patient is still with right lower lobe infiltrate. However, patient appears to have some mucous plugging which may be causing some complete atelectasis of the lower lobe. Consulted Pulmonary for further evaluation. Patient may need bronchoscopy. Review of Systems 10-point ROS is otherwise unremarkable Physical Examination - Vital Signs Temperature: 98 F Blood Pressure: 97/55 Pulse: 95 Respirations: 17 Pulse Ox (%): 97 - Physical Exam General: Alert, In no apparent distress, Oriented x3 Respiratory: Diminished (Right lower lobe) Cardiovascular: Regular rate/rhythm, Normal S1 S2, Systolic murmur Gastrointestinal: Normal bowel sounds, Soft and benign, Non-distended, No tenderness Musculoskeletal: No clubbing, No swelling, No tenderness Neurological: Sensation intact, Cranial nerves 3-12 intact - Studies Medications List Reviewed: Yes Assessment & Plan - Problems (Diagnosis) (1) Right lower lobe pulmonary infiltrate Current Visit: Yes Status: Acute (2) Atelectasis of right lung Current Visit: Yes Status: Acute (3) Aspiration pneumonia Current Visit: Yes Status: Acute (4) Mucus plugging of bronchi Current Visit: Yes Status: Acute (5) Muscular dystrophy Current Visit: Yes Status: Acute (6) Hemorrhoids Current Visit: Yes Status: Acute (7) Respiratory failure Current Visit: Yes Status: Acute Qualifiers: Chronicity: acute on chronic - Plan 1. Continue with IV antibiotics 2. Awaiting sputum and blood culture 3. Repeat chest x-ray 4. Patient made need bronchoscopy if right lung is not having some re-expansion 5. Appreciate pulmonary consultation 6. Continue with nebs as needed; BiPAP support 7. O2 per protocol 8. Continue with gentle hydration 9. Repeat labs including CBC and renal function in a.m. 10. GI and DVT prophylaxis Discharge Plan: Home Plan to discharge in: Greater than 2 days - Advance Directives Does patient have a Living Will: No Does patient have a Durable POA for Healthcare: Yes - Code Status/Comfort Care Code Status Assessed: Yes Code Status: Full Code Critical Care: No Time Spent Managing PTS Care (In Minutes): 35
--- NOTE | 2021-02-13 10:32 | P.PN ---
Date of Service: 02/12/21 Subjective Patient was tachycardic today. Sinus tachyarrhythmia. Resumed beta-salvador therapy with Lopressor. Holding Entresto. Patient blood pressure is on the low side. Review of Systems 10-point ROS is otherwise unremarkable Physical Examination - Vital Signs Reviewed - Physical Exam General: Alert, In no apparent distress, Oriented Respiratory: Diminished (Right lower lobe) Cardiovascular: Regular rate/rhythm, Normal S1 S2, Systolic murmur Gastrointestinal: Normal bowel sounds, Soft and benign, Non-distended, No tenderness Musculoskeletal: No clubbing, No swelling, No tenderness Neurological: Sensation intact, Cranial nerves 3-12 intact; generalized weakness injury to muscular dystrophy Assessment & Plan - Problems (Diagnosis) (1) Right lower lobe pulmonary infiltrate Current Visit: Yes Status: Acute (2) Atelectasis of right lung Current Visit: Yes Status: Acute (3) Aspiration pneumonia Current Visit: Yes Status: Acute (4) Mucus plugging of bronchi Current Visit: Yes Status: Acute (5) Muscular dystrophy Current Visit: Yes Status: Acute (6) Hemorrhoids Current Visit: Yes Status: Acute (7) Respiratory failure Current Visit: Yes Status: Acute Qualifiers: Chronicity: acute on chronic - Plan Continue with plan of care as mentioned below: 1. Continue with IV antibiotics 2. Awaiting sputum and blood culture 3. Repeat chest x-ray 4. Patient made need bronchoscopy if right lung is not having some re-expansion; continue with supportive care with pulmonary toilet. May need BiPAP support 5. Appreciate pulmonary consultation 6. Continue with nebs as needed; BiPAP support 7. O2 per protocol 8. Continue with tube feeds and Hep-Lock IV 9. Continue monitoring labs 10. GI and DVT prophylaxis
--- NOTE | 2021-02-13 10:33 | P.PN ---
Date of Service: 02/13/21 Subjective Patient is doing better. Chest x-ray shows improvement. Patient is clinically doing better. Review of Systems 10-point ROS is otherwise unremarkable Physical Examination - Vital Signs Reviewed - Physical Exam General: Alert, In no apparent distress, Oriented Respiratory: Diminished (Right lower lobe) Cardiovascular: Regular rate/rhythm, Normal S1 S2, Systolic murmur Gastrointestinal: Normal bowel sounds, Soft and benign, Non-distended, No tenderness; hemorrhoid is decreased in size Musculoskeletal: No clubbing, No swelling, No tenderness Neurological: Sensation intact, Cranial nerves 3-12 intact; generalized weakness injury to muscular dystrophy Assessment & Plan - Problems (Diagnosis) (1) Right lower lobe pulmonary infiltrate Current Visit: Yes Status: Acute (2) Atelectasis of right lung Current Visit: Yes Status: Acute (3) Aspiration pneumonia Current Visit: Yes Status: Acute (4) Mucus plugging of bronchi Current Visit: Yes Status: Acute (5) Muscular dystrophy Current Visit: Yes Status: Acute (6) Hemorrhoids Current Visit: Yes Status: Acute (7) Respiratory failure Current Visit: Yes Status: Acute Qualifiers: Chronicity: acute on chronic - Plan Continue with plan of care as mentioned below: 1. Continue with IV antibiotics 2. Cultures are negative 3. Repeat chest x-ray 4. May not need bronchoscopy after all as lung is reexpanding 5. Appreciate pulmonary consultation 6. Continue with nebs as needed; BiPAP support as needed 7. O2 per protocol 8. Continue with tube feeds and Hep-Lock IV 9. Continue monitoring labs 10. GI and DVT prophylaxis Family requesting Ensure with protein prescriptions and did tube feeds at home so will need prescription for foster care needs to assist with getting the Ensure with protein; also requested physical therapy eval as they will need a wheelchair with the head rest.
--- NOTE | 2021-02-13 11:03 | RAD REPORT ---
EXAM DESCRIPTION: RAD - Chest Single View - 02/13/2021 10:54 am CLINICAL HISTORY: pneumonia COMPARISON: Chest Single View dated 02/12/2021; Chest Single View dated 02/10/2021; Chest Single View dated 02/09/2021; Chest Single View dated 02/07/2021; Chest For Pe Angio dated 02/06/2021 FINDINGS: Similar appearing right lower lobe consolidative airspace disease with or without a small effusion. Left lung remains clear. The heart size is normal. IMPRESSION: Unchanged right lower lobe consolidation. Left lung remains clear.
[2021-02-13] MEDS ORDERED: DIPHENHYDRAMINE 25 MG TAB/CAP PO PRN (21:00)
[2021-02-14] MEDS: LEVALBUTEROL 0.63 MG/3 ML NEB NEB SCH ×4 (02:30→20:00)
[2021-02-14] MEDS: JEVITY 1.5 CAL LIQUID 1,000 ML BOT RTH SCH ×2 (04:01→23:02)
[2021-02-14] MEDS: LORazepam 2 MG/ML VIAL IV PRN ×3 (04:14→23:01)
[2021-02-14 05:56] LABS: Absolute Lymphocytes (CBC) 1.2 K/uL (0.7-4.9); Basophils % 0.4 % (0-1.3); Hematocrit 30.6 % (39.6-49.0); Lymphocytes % 13.2 % (15.3-44.8); MPV 7.4 fL (7.6-11.3); RBC Red Blood Cell Count 3.52 M/uL (4.33-5.43)
[2021-02-14] MEDS: METOPROLOL TAR 25 MG TAB PO SCH ×3 (06:08→23:01)
--- NOTE | 2021-02-14 06:12 | P.PN ---
Subjective Date of Service: 02/14/21 Primary Care Provider: Out of [facility] doctor cardiology Dr. Mott Chief Complaint: Pneumonia, hypoxia Subjective: Improving, Doing well Physical Examination - Vital Signs Temperature: 97.3 F Blood Pressure: 120/66 Pulse: 115 Respirations: 18 Pulse Ox (%): 96 - Studies Medications List Reviewed: Yes Assessment & Plan Discharge Plan: Home Plan to discharge in: 24 Hours Physician Review Additional Text: Modified barium swallow: COMPARISON: No comparisons TECHNIQUE: The patient was given liquid, semi-solid and solid forms of barium. Lateral view fluoroscopic imaging was performed in conjunction with speech pathology service. Findings: Laryngeal penetration cleared with thin by straw, pharyngeal residue vallecular mild with thin, nectar, pudding. Moderate with honey and severe with margy cracker. Pyriform minimal with thin, mild with nectar and honey, moderate with putting. Posterior wall minimal with thin, mild with pudding, moderate to severe with margy cracker. Severe kyphosis, decreased epiglottal inversion, 2- second swallow delay, severe esophageal stasis and dysmotility with pudding and barium tablet. CT Scan: COMPARISON: None. TECHNIQUE: Dynamically enhanced axial 3 mm thick images of the chest were obtained during administration of <100> mL Isovue 370 IV contrast. Coronal and oblique reconstruction images were generated and reviewed. Exam utilizes a protocol for optimal evaluation of pulmonary arterial tree. Maximum intensity projections 3D imaging was utilized All CT scans are performed using dose optimization technique as appropriate and may include automated exposure control or mA/KV adjustment according to patient size. FINDINGS: A pulmonary embolus is not seen. A thoracic aortic aneurysm is not noted. Small right pleural effusion. A pericardial effusion is not seen. Moderate to large right middle and right lower lobe consolidation with a telectasis. Right lower lobe bronchus is occluded. Mild lingular opacity The gallbladder is only partially imaged on this exam. The wall may be thickened. If clinically indicated further evaluation ultrasound could be obtained IMPRESSION: Negative for a pulmonary embolism. Moderate to large right pneumonia with atelectasis. Occlusion of the right lower lobe bronchus this should be followed until has cleared to help exclude an endobronchial lesion Small right pleural effusion Follow-up chest x-ray 02/14/2021: COMPARISON: Chest Single View dated 02/13/2021; Chest Single View dated 02/12/2021; Chest Single View dated 02/10/2021; Chest Single View dated 02/09/2021 FINDINGS: Unchanged consolidative airspace disease in the right lower lobe. The lungs volumes are slightly improved. Left lung remains clear. The heart size is within normal limits.No acute osseous abnormality. No significant pleural effusions or pneumothorax. IMPRESSION: Slight improved lung volumes but otherwise similar right basilar consolidative airspace disease. The left lung remains clear. Physical Exam: General: Alert, In no apparent distress, patient talkative today. HEENT: Neck supple Respiratory: Clear to the left side. Decreased to the right base. Currently on 1.5 L Cardiovascular: Regular rate/rhythm, Normal S1 S2 Capillary refill: <2 Seconds Gastrointestinal: Normal bowel sounds, No tenderness Musculoskeletal: No tenderness Integumentary: No rashes Neurological: Normal affect, Other (Wheelchair-bound), Abnormal speech, Abnormal strength, Abnormal tone Impression: Acute hypoxic respiratory failure secondary to right lower lobe pneumonia likely aspiration with noted abnormal modified barium swallow showing severe esophageal stasis, dysmotility and decreased epiglottal inversion with worsening dysphagia Muscular dystrophy Cardiomyopathy with underlying chronic diastolic CHF secondary to muscular dystrophy Bipolar disorder Plan Acute hypoxic respiratory failure secondary to large consolidated right lower lobe pneumonia likely aspiration with noted abnormal modified barium swallow showing severe esophageal stasis, dysmotility and decreased epiglottal inversion with worsening dysphagia: Patient continues to improve. Patient tolerating PEG tube feeds. Patient on amoxicillin and doxycycline. Case discussed with pulmonology. Anticipate likely discharge within the next 24 to 48 hours. Awaiting to see if patient will require NIV at discharge. Continue current medication. Will discuss further with pulmonology. 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 Likely no need for medication at this time. Echo reviewed with cardiology. Patient may have underlying diastolic heart failure. Continue with current plan of care. Will monitor closely. Ejection fraction normal. Minimal pericardial fusion noted. Likely from his cardiomyopathy and muscular dystrophy. Will monitor this closely. BPD: Continue with home medication Code Status: Full code DVT Prophylaxis: Lovenox Advanced Care Planning: Home at discharge with home health and likely caregiver services. Spoke to case management. Reports the following. Jevity 1.5 feedings recommended by international project engineer will delivered on date of DC and covered at 100%. No recommendations in place for Ensure to meet nutritional needs. Suction has been ordered- pending NIV has been ordered- pending PT eval still pending for wheelchair recommendation. Time Spent Managing Pts Care (In Minutes): 55
[2021-02-14 06:29] LABS: ALT/SGPT 35 U/L (12-78); AST/SGOT 22 U/L (15-37); Albumin 2.4 g/dL (3.4-5.0); Alkaline Phosphatase 51 U/L (45-117); BUN Blood Urea Nitrogen 5 mg/dL (7-18); Bicarbonate 33 mmol/L (21-32); Bilirubin Total 0.2 mg/dL (0.2-1.0); Glucose Level 130 mg/dL (74-106); Magnesium 2.2 mg/dL (1.8-2.4); NT PRO-BNP 234 pg/mL (<125); Potassium 3.9 mmol/L (3.5-5.1); Protein, Total 5.9 g/dL (6.4-8.2); Sodium Level 140 mmol/L (136-145)
--- NOTE | 2021-02-14 06:59 | RAD REPORT ---
EXAM DESCRIPTION: RAD - Chest Single View - 02/14/2021 6:43 am CLINICAL HISTORY: pneumonia COMPARISON: Chest Single View dated 02/13/2021; Chest Single View dated 02/12/2021; Chest Single View dated 02/10/2021; Chest Single View dated 02/09/2021 FINDINGS: Unchanged consolidative airspace disease in the right lower lobe. The lungs volumes are sl ightly improved. Left lung remains clear. The heart size is within normal limits.No acute osseous abn ormality. No significant pleural effusions or pneumothorax. IMPRESSION: Slight improved lung volumes but otherwise similar right basilar consolidative airspace disease. The left lung remains clear.
[2021-02-14] MEDS: BENZTROPINE 1 MG TAB PO SCH ×2 (09:00→21:00)
[2021-02-14] MEDS: HYDROCORTISONE 2.5% RECT CR PR SCH ×2 (09:00→14:00)
[2021-02-14] MEDS ORDERED: POTASSIUM 25 MEQ EFFERV TAB PO ONE (09:00)
[2021-02-14] MEDS: FOLIC ACID 1 MG in NA CHLORIDE 0.9% 50 ML IV SCH (09:00)
[2021-02-14 09:28] LABS: Blood Morphology Comment NOT SEEN (NOT SEEN); Platelet Estimate ADEQ
[2021-02-14] MEDS: RISPERIDONE 1 MG TABLET PO SCH ×2 (10:24→21:07)
[2021-02-14] MEDS: DOXYCYCLINE 100 MG CAP PO SCH ×2 (10:24→21:07)
[2021-02-14] MEDS: CITALOPRAM 10 MG TABLET PO SCH (10:25)
[2021-02-14] MEDS: AMOX/K CLAV 500 MG TAB PO SCH ×2 (10:25→21:07)
[2021-02-14 15:58] LABS: Arterial Blood Carboxyhemoglob 0.8 % (0-1.5); Blood Gas Oxyhemoglobin 95.1 % (94-97); Blood O2 Saturation 96.7 % (92-98.5)
--- NOTE | 2021-02-14 17:09 | P.PN ---
Subjective Date of Service: 02/14/21 (TV) Primary Care Provider: Out of [facility] doctor cardiology Dr. Mott Chief Complaint: Pneumonia Subjective: Improving (Well. Alert Communicating) Physical Examination - Vital Signs Temperature: 97.3 F Blood Pressure: 120/66 Pulse: 115 Respirations: 18 Pulse Ox (%): 96 - Physical Exam General: Alert, Cooperative - Studies Medications List Reviewed: Yes Assessment & Plan - Problems (Diagnosis) (1) Respiratory failure Current Visit: Yes Status: Acute Plan: Pt doing well/ Mild hypercapnia/ Family members not keen on NIV/ Labs reviewed/ DW with Sister ICU nurse/ WBC normal/ cultures neg/ Plan for DC home am on Augmentin and Doxy Qualifiers: Chronicity: acute on chronic Physician Review Additional Text: Modified barium swallow: COMPARISON: No comparisons TECHNIQUE: The patient was given liquid, semi-solid and solid forms of barium. Lateral view fluoroscopic imaging was performed in conjunction with speech pathology service. Findings: Laryngeal penetration cleared with thin by straw, pharyngeal residue vallecular mild with thin, nectar, pudding. Moderate with honey and severe with margy cracker. Pyriform minimal with thin, mild with nectar and honey, moderate with putting. Posterior wall minimal with thin, mild with pudding, moderate to severe with margy cracker. Severe kyphosis, decreased epiglottal inversion, 2- second swallow delay, severe esophageal stasis and dysmotility with pudding and barium tablet. CT Scan: COMPARISON: None. TECHNIQUE: Dynamically enhanced axial 3 mm thick images of the chest were obtained during administration of <100> mL Isovue 370 IV contrast. Coronal and oblique reconstruction images were generated and reviewed. Exam utilizes a protocol for optimal evaluation of pulmonary arterial tree. Maximum intensity projections 3D imaging was utilized All CT scans are performed using dose optimization technique as appropriate and may include automated exposure control or mA/KV adjustment according to patient size. FINDINGS: A pulmonary embolus is not seen. A thoracic aortic aneurysm is not noted. Small right pleural effusion. A pericardial effusion is not seen. Moderate to large right middle and right lower lobe consolidation with atelectasis. Right lower lobe bronchus is occluded. Mild lingular opacity The gallbladder is only partially imaged on this exam. The wall may be thickened. If clinically indicated further evaluation ultrasound could be obtained IMPRESSION: Negative for a pulmonary embolism. Moderate to large right pneumonia with atelectasis. Occlusion of the right lower lobe bronchus this should be followed until has cleared to help exclude an endobronchial lesion Small right pleural effusion Follow-up chest x-ray 02/14/2021: COMPARISON: Chest Single View dated 02/13/2021; Chest Single View dated 02/12/2021; Chest Single View dated 02/10/2021; Chest Single View dated 02/09/2021 FINDINGS: Unchanged consolidative airspace disease in the right lower lobe. The lungs volumes are slightly improved. Left lung remains clear. The heart size is within normal limits.No acute osseous abnormality. No significant pleural effusions or pneumothorax. IMPRESSION: Slight improved lung volumes but otherwise similar right basilar consolidative airspace disease. The left lung remains clear. Physical Exam: General: Alert, In no apparent distress, patient talkative today. HEENT: Neck supple Respiratory: Clear to the left side. Decreased to the right base. Currently on 1.5 L Cardiovascular: Regular rate/rhythm, Normal S1 S2 Capillary refill: <2 Seconds Gastrointestinal: Normal bowel sounds, No tenderness Musculoskeletal: No tenderness Integumentary: No rashes Neurological: Normal affect, Other (Wheelchair-bound), Abnormal speech, Abnormal strength, Abnormal tone Impression: Acute hypoxic respiratory failure secondary to right lower lobe pneumonia likely aspiration with noted abnormal modified barium swallow showing severe esophageal stasis, dysmotility and decreased epiglottal inversion with worsening dysphagia Muscular dystrophy Cardiomyopathy with underlying chronic diastolic CHF secondary to muscular dystrophy Bipolar disorder Plan Acute hypoxic respiratory failure secondary to large consolidated right lower lobe pneumonia likely aspiration with noted abnormal modified barium swallow showing severe esophageal stasis, dysmotility and decreased epiglottal inversion with worsening dysphagia: Patient continues to improve. Patient tolerating PEG tube feeds. Patient on amoxicillin and doxycycline. Case discussed with pulmonology. Anticipate likely discharge within the next 24 to 48 hours. Awaiting to see if patient will require NIV at discharge. Continue current medication. Will discuss further with pulmonology. 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 Likely no need for medication at this time. Echo reviewed with cardiology. Patient may have underlying diastolic heart failure. Continue with current plan of care. Will monitor closely. Ejection fraction normal. Minimal pericardial fusion noted. Likely from his cardiomyopathy and muscular dystrophy. Will monitor this closely. BPD: Continue with home medication Code Status: Full code DVT Prophylaxis: Lovenox Advanced Care Planning: Home at discharge with home health and likely caregiver services. Spoke to case management. Reports the following. Jevity 1.5 feedings recommended by hearing screener will delivered on date of DC and covered at 100%. No recommendations in place for Ensure to meet nutritional needs. Suction has been ordered- pending NIV has been ordered- pending PT eval still pending for wheelchair recommendation.
[2021-02-15] MEDS: LEVALBUTEROL 0.63 MG/3 ML NEB NEB SCH ×4 (02:00→19:50)
[2021-02-15 05:58] LABS: BUN Blood Urea Nitrogen 7 mg/dL (7-18); Bicarbonate 33 mmol/L (21-32); Glucose Level 126 mg/dL (74-106); Potassium 4.3 mmol/L (3.5-5.1); Sodium Level 139 mmol/L (136-145)
--- NOTE | 2021-02-15 06:07 | P.PN ---
Subjective Date of Service: 02/15/21 Primary Care Provider: Out of [facility] doctor cardiology Dr. Mott Chief Complaint: Pneumonia Subjective: Improving, Doing well Physical Examination - Vital Signs Temperature: 98.6 F Blood Pressure: 117/63 Pulse: 134 Respirations: 18 Pulse Ox (%): 94 - Studies Medications List Reviewed: Yes Assessment & Plan Discharge Plan: Home Plan to discharge in: 24 Hours Physician Review Additional Text: Modified barium swallow: COMPARISON: No comparisons TECHNIQUE: The patient was given liquid, semi-solid and solid forms of barium. Lateral view fluoroscopic imaging was performed in conjunction with speech pathology service. Findings: Laryngeal penetration cleared with thin by straw, pharyngeal residue vallecular mild with thin, nectar, pudding. Moderate with honey and severe with margy cracker. Pyriform minimal with thin, mild with nectar and honey, moderate with putting. Posterior wall minimal with thin, mild with pudding, moderate to severe with margy cracker. Severe kyphosis, decreased epiglottal inversion, 2- second swallow delay, severe esophageal stasis and dysmotility with pudding and barium tablet. CT Scan: COMPARISON: None. TECHNIQUE: Dynamically enhanced axial 3 mm thick images of the chest were obtained during administration of <100> mL Isovue 370 IV contrast. Coronal and oblique reconstruction images were generated and reviewed. Exam utilizes a protocol for optimal evaluation of pulmonary arterial tree. Maximum intensity projections 3D imaging was utilized All CT scans are performed using dose optimization technique as appropriate and may include automated exposure control or mA/KV adjustment according to patient size. FINDINGS: A pulmonary embolus is not seen. A thoracic aortic aneurysm is not noted. Small right pleural effusion. A pericardial effusion is not seen. Moderate to large right middle and right lower lobe consolidation with atelectasis. Right lower lobe bronchus is occluded. Mild lingular opacity The gallbladder is only partially imaged on this exam. The wall may be thickened. If clinically indicated further evaluation ultrasound could be obtained IMPRESSION: Negative for a pulmonary embolism. Moderate to large right pneumonia with atelectasis. Occlusion of the right lower lobe bronchus this should be followed until has cleared to help exclude an endobronchial lesion Small right pleural effusion Follow-up chest x-ray 02/14/2021: COMPARISON: Chest Single View dated 02/13/2021; Chest Single View dated 02/12/2021; Chest Single View dated 02/10/2021; Chest Single View dated 02/09/2021 FINDINGS: Unchanged consolidative airspace disease in the right lower lobe. The lungs volumes are slightly improved. Left lung remains clear. The heart size is within normal limits.No acute osseous abnormality. No significant pleural effusions or pneumothorax. IMPRESSION: Slight improved lung volumes but otherwise similar right basilar consolidative airspace disease. The left lung remains clear. Physical Exam: General: Alert, In no apparent distress, patient talkative today. HEENT: Neck supple Respiratory: No distress noted. Patient on room air. Cardiovascular: Mild tachycardia. Overall stable normal S1 S2 Capillary refill: <2 Seconds Gastrointestinal: Normal bowel sounds, No tenderness Musculoskeletal: No tenderness Integumentary: No rashes Neurological: Normal affect, Other (Wheelchair-bound), Abnormal speech, Abnormal strength, Abnormal tone Impression: Acute hypoxic respiratory failure secondary to right lower lobe pneumonia likely aspiration with noted abnormal modified barium swallow showing severe esophageal stasis, dysmotility and decreased epiglottal inversion with worsening dysphagia Muscular dystrophy Cardiomyopathy with underlying chronic diastolic CHF secondary to muscular dystrophy Bipolar disorder Plan Acute hypoxic respiratory failure secondary to large consolidated right lower lobe pneumonia likely aspiration with noted abnormal modified barium swallow showing severe esophageal stasis, dysmotility and decreased epiglottal inversion with worsening dysphagia: Patient has done well. Continue with PEG tube feeds. This will be transitioned to bolus feeds with the help of dietary. Family to be taught on feeds. Mother waiting on other needs including suction machine. NIV will likely not be required at discharge. PT did their assessment for wheelchair recommendation. Anticipate discharge tomorrow. 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 Blood pressure improved. Will restart carvedilol at a low dose BPD: Continue with home medication Code Status: Full code DVT Prophylaxis: Lovenox Advanced Care Planning: Home at discharge with home health and likely caregiver services. Dissipate discharge tomorrow. Spoke to case management. Reports the following. Dietary to gear changer to bolus feeds. Family will be taught. Awaiting on suction machine. Patient will likely not require NIV at discharge. Physical therapy has made their evaluation for wheelchair recommendation. Time Spent Managing Pts Care (In Minutes): 55
[2021-02-15] MEDS: BENZTROPINE 1 MG TAB PO SCH ×2 (09:00→20:59)
[2021-02-15] MEDS: AMOX/K CLAV 500 MG TAB PO SCH ×2 (11:09→20:59)
[2021-02-15] MEDS: CITALOPRAM 10 MG TABLET PO SCH (11:10)
[2021-02-15] MEDS: METOPROLOL TAR 25 MG TAB PO SCH ×2 (11:10→18:14)
[2021-02-15] MEDS: FOLIC ACID 1 MG in NA CHLORIDE 0.9% 50 ML IV SCH (11:11)
[2021-02-15] MEDS: DOXYCYCLINE 100 MG CAP PO SCH ×2 (11:11→20:59)
[2021-02-15] MEDS: RISPERIDONE 1 MG TABLET PO SCH ×2 (11:11→20:59)
[2021-02-15] MEDS: JEVITY 1.5 CAL LIQUID 1,000 ML BOT RTH SCH (23:30)
[2021-02-16] MEDS: LEVALBUTEROL 0.63 MG/3 ML NEB NEB SCH ×3 (02:10→14:00)
[2021-02-16] MEDS: METOPROLOL TAR 25 MG TAB PO SCH ×2 (06:00→11:14)
--- NOTE | 2021-02-16 06:16 | P.DS ---
Admission Date: 02/05/21 Discharge Date: 02/16/21 Primary Care Provider: Out of town doctor cardiology Dr. Mott Disposition: DC HOME/HOME HEALTH CARE Discharge Condition: GOOD Reason for Admission: Pneumonia Consultations: Surgery-Dr. Alvarado Pulmonary-Dr. Hand Procedures: Modified barium swallow: COMPARISON: No comparisons TECHNIQUE: The patient was given liquid, semi-solid and solid forms of barium. Lateral view fluoroscopic imaging was performed in conjunction with speech pathology service. Findings: Laryngeal penetration cleared with thin by straw, pharyngeal residue vallecular mild with thin, nectar, pudding. Moderate with honey and severe with margy cracker. Pyriform minimal with thin, mild with nectar and honey, moderate with putting. Posterior wall minimal with thin, mild with pudding, moderate to severe with margy cracker. Severe kyphosis, decreased epiglottal inversion, 2- second swallow delay, severe esophageal stasis and dysmotility with pudding and barium tablet. CT Scan: COMPARISON: None. TECHNIQUE: Dynamically enhanced axial 3 mm thick images of the chest were obtained during administration of <100> mL Isovue 370 IV contrast. Coronal and oblique reconstruction images were generated and reviewed. Exam utilizes a protocol for optimal evaluation of pulmonary arterial tree. Maximum intensity projections 3D imaging was utilized All CT scans are performed using dose optimization technique as appropriate and may include automated exposure control or mA/KV adjustment according to patient size. FINDINGS: A pulmonary embolus is not seen. A thoracic aortic aneurysm is not noted. Small right pleural effusion. A pericardial effusion is not seen. Moderate to large right middle and right lower lobe consolidation with atelectasis. Right lower lobe bronchus is occluded. Mild lingular opacity The gallbladder is only partially imaged on this exam. The wall may be thickened. If clinically indicated further evaluation ultrasound could be obtained IMPRESSION: Negative for a pulmonary embolism. Moderate to large right pneumonia with atelectasis. Occlusion of the right lower lobe bronchus this should be followed until has cleared to help exclude an endobronchial lesion Small right pleural effusion ECHO: MEASUREMENTS (cm) DIASTOLIC (NORMALS) SYSTOLIC (NORMALS) IVSd 0.7 (0.6-1.2) LA Diam 3.0 (1.9-4.0) LVEF 58% LVIDd 5.1 (3.5-5.7) LVIDs 3.5 (2.0-3.5) %FS 30% LVPWd 0.7 (0.6-1.2) Ao Diam 3.1 (2.0-3.7) 2 DIMENSIONAL ASSESSMENT: RIGHT ATRIUM: NORMAL LEFT ATRIUM: NORMAL RIGHT VENTRICLE: NORMAL LEFT VENTRICLE: NORMAL TRICUSPID VALVE: NORMAL MITRAL VALVE: NORMAL PULMONIC VALVE: NORMAL AORTIC VALVE: NORMAL PERICARDIAL EFFUSION: TRACE AORTIC ROOT: NORMAL LEFT VENTRICULAR WALL MOTION: NORMAL EJECTION FRACTION DECREASED LEFT VENTRICULAR COMPLIANCE. DOPPLER/COLOR FLOW: NORMAL. COMMENTS: TRACE OF PERICARDIAL EFFUSION. NORMAL LEFT VENTRICULAR SIZE. DECREASED LEFT VENTRICULAR COMPLIANCE. NORMAL OVERALL EJECTION FRACTION. Surgery 02/09/2021: Insertion of PEG tube Follow up CXR: COMPARISON: Chest Single View dated 02/13/2021; Chest Single View dated 02/12/2021; Chest Single View dated 02/10/2021; Chest Single View dated 02/09/2021 FINDINGS: Unchanged consolidative airspace disease in the right lower lobe. The lungs volumes are slightly improved. Left lung remains clear. The heart size is within normal limits.No acute osseous abnormality. No significant pleural effusions or pneumothorax. IMPRESSION: Slight improved lung volumes but otherwise similar right basilar consolidative airspace disease. The left lung remains clear. Medical problem list Acute hypoxic respiratory failure secondary to right lower lobe pneumonia likely aspiration with noted abnormal modified barium swallow showing severe esophageal stasis, dysmotility and decreased epiglottal inversion with worsening dysphagia status post PEG tube placement Muscular dystrophy Cardiomyopathy with underlying chronic diastolic CHF secondary to muscular dystrophy Bipolar disorder Brief History of Present Illness: 40-year-old male with history of muscular dystrophy, cardiomyopathy, BPD presents emergency department for shortness of breath, fever. Patient noted to be mildly hypoxic on room air saturating in the low 90s to high 80s. Mother at bedside reports patient has had increasing problems with swallowing over the course of the last 1-2 weeks, patient unable to cough or protect airway very well. Evaluation in the emergency department, labs significant for elevated pro calcitonin 0.4 albumin low 2.9 white blood cell count within normal limit. chest x-ray demonstrates what appears to be right middle/lower lobe pneumonia. Patient was admitted for further evaluation and treatment. Hospital Course: Patient with history of muscular dystrophy, bipolar disorder. Patient found to have acute hypoxic respiratory failure secondary to large consolidated right lower lobe pneumonia likely aspiration. The patient was admitted for treatment. The patient was further evaluated by speech. Barium swallow showed a severe esophageal stasis, dysmotility and decreased epiglottal inversion with worsening dysphagia. PEG tube was recommended at this time. Surgery was consulted to further assist. PEG tube was placed. Patient was trialed on feeding. Patient has done well. PEG tube working appropriately. Patient was also seen and evaluated by pulmonology. At this time patient currently off oxygen. No need for other pulmonary invasive measures. At discharge patient remains on room air. At discharge the patient will be set up with home health and other services. This will include: PEG tube feeds, suction device, and home health. At discharge the patient will continue with Jevity 1.5 360 mL bolus feeds 3 times a day. At discharge the patient will continue with doxycycline 100 mg 1 pill twice daily and Augmentin 400 mg twice daily through the PEG tube for 7 days. Recommend to recheck chest x-ray in 2 to 4 weeks to monitor resolution. Aspiration precaution in place. Patient will follow up with pulmonology in 1 to 2 weeks to follow-up hospitalization and continue his care. Patient plans to establish care with a PCP with the help of his mother. Patient also has a history of cardiomyopathy with underlying chronic diastolic CHF related to muscular dystrophy. Echocardiogram showed normal ejection fraction. Medications were adjusted in the course of his stay. Patient no longer on Entresto, carvedilol or Aldactone. Metoprolol was utilized for his hypertension. At discharge the patient will continue with metoprolol 25 mg 1 pill twice daily. Recommend follow-up with cardiology in 1 to 2 weeks to f ollow-up hospitalization. Patient with bipolar disorder. This is remained stable. At discharge patient will continue with folic acid 1 mg daily, benztropine 2 mg 1 pill twice daily, Celexa 20 mg daily, Risperdal 4 mg 1 pill twice daily, and Ativan 1 mg 3 times a day as needed for anxiety. Medications will be given through the PEG tube. Prior to discharge patient's mother will be educated on tube feeds and other requirements. Home health will be arranged with services. Vital Signs/Physical Exam: Temp Pulse Resp BP Pulse Ox 98.3 F 104 H 16 114/59 L 94 02/15/21 20:00 02/15/21 20:00 02/15/21 20:00 02/15/21 20:00 02/15/21 20:00 General: Alert, In no apparent distress, Oriented x3, Cooperative HEENT: Atraumatic Neck: Supple Respiratory: Clear to auscultation bilaterally, Other (Patient on room air.) Cardiovascular: Normal pulses, Regular rate/rhythm Gastrointestinal: Normal bowel sounds, No tenderness, No masses, No rebound, No guarding, Other (PEG tube in place) Integumentary: No tenderness/swelling, No cyanosis Neurological: Normal speech, Other (Muscle wasting noted throughout.) Laboratory Data at Discharge: WBC 9.30 K/uL (4.3-10.9) 02/14/21 05:36 Hgb 10.5 g/dL (13.6-17.9) L 02/14/21 05:36 Hct 30.6 % (39.6-49.0) L 02/14/21 05:36 Plt Count 350 K/uL (152-406) 02/14/21 05:36 PT 14.6 SECONDS (9.5-12.5) H 02/04/21 23:51 INR 1.27 02/04/21 23:51 APTT 28.6 SECONDS (24.3-36.9) 02/04/21 23:51 Sodium 139 mmol/L (136-145) 02/15/21 05:12 Potassium 4.3 mmol/L (3.5-5.1) 02/15/21 05:12 BUN 7 mg/dL (7-18) 02/15/21 05:12 Creatinine < 0.15 mg/dL (0.55-1.3) L 02/15/21 05:12 Glucose 126 mg/dL (74-106) H 02/15/21 05:12 Magnesium 2.2 mg/dL (1.8-2.4) 02/14/21 05:36 Total Bilirubin 0.2 mg/dL (0.2-1.0) 02/14/21 05:36 AST 22 U/L (15-37) 02/14/21 05:36 ALT 35 U/L (12-78) 02/14/21 05:36 Alkaline Phosphatase 51 U/L (45-117) 02/14/21 05:36 Lipase 11 U/L (73-393) L 02/04/21 23:51 Home Medications: Benztropine Mesylate [Cogentin] 2 mg PO BID 02/05/21 Citalopram [Celexa*] 20 mg PO DAILY 02/05/21 LORazepam [Ativan*] 1 mg PO PRN PRN 02/05/21 Sacubitril/Valsartan [Entresto 24 mg-26 mg Tablet] 0.5 tab PO BID 02/05/21 Spironolactone 12.5 mg PO DAILY 02/05/21 risperiDONE [Risperdal] 4 mg PO BID 02/05/21 Amox Tr/Potassium Clavulanate [Augmentin 400-57 mg/5 ml] 5 ml FT BID #1 bottle 02/16/21 Doxycycline Hyclate 100 mg FT BID #14 tablet 02/16/21 Folic Acid 1 mg FT DAILY #90 tablet 02/16/21 Jevity 1.5 Oracio Liquid 360 ml FT TID #90 bot 02/16/21 Metoprolol Tartrate [Lopressor*] 25 mg FT BID 6AM 6PM #60 tab 02/16/21 New Medications: Amox Tr/Potassium Clavulanate [Augmentin 400-57 mg/5 ml] 5 ml FT BID #1 bottle Doxycycline Hyclate 100 mg FT BID #14 tablet Folic Acid 1 mg FT DAILY #90 tablet Jevity 1.5 Oracio Liquid 360 ml FT TID #90 bot Metoprolol Tartrate [Lopressor*] 25 mg FT BID 6AM 6PM #60 tab Physician Discharge Instructions: Patient with history of muscular dystrophy, bipolar disorder. Patient found to have acute hypoxic respiratory failure secondary to large consolidated right lower lobe pneumonia likely aspiration. The patient was admitted for treatment. The patient was further evaluated by speech. Barium swallow showed a severe esophageal stasis, dysmotility and decreased epiglottal inversion with worsening dysphagia. PEG tube was recommended at this time. Surgery was consulted to further assist. PEG tube was placed. Patient was trialed on feeding. Patient has done well. PEG tube working appropriately. Patient was also seen and evaluated by pulmonology. At this time patient currently off oxygen. No need for other pulmonary invasive measures. At discharge patient remains on room air. At discharge the patient will be set up with home health and other services. This will include: PEG tube feeds, suction device, and home health. At discharge the patient will continue with Jevity 1.5 360 mL bolus feeds 3 times a day. At discharge the patient will continue with doxycycline 100 mg 1 pill twice daily and Augmentin 400 mg twice daily through the PEG tube for 7 days. Recommend to recheck chest x-ray in 2 to 4 weeks to monitor resolution. Aspiration precaution in place. Patient will follow up with pulmonology in 1 to 2 weeks to follow-up hospitalization and continue his care. Patient plans to establish care with a PCP with the help of his mother. Patient also has a history of cardiomyopathy with underlying chronic diastolic CHF related to muscular dystrophy. Echocardiogram showed normal ejection fraction. Medications were adjusted in the course of his stay. Patient no longer on Entresto, carvedilol or Aldactone. Metoprolol was utilized for his hypertension. At discharge the patient will continue with metoprolol 25 mg 1 pill twice daily. Recommend follow-up with cardiology in 1 to 2 weeks to follow-up hospitalization. Patient with bipolar disorder. This is remained stable. At discharge patient will continue with folic acid 1 mg daily, benztropine 2 mg 1 pill twice daily, Celexa 20 mg daily, Risperdal 4 mg 1 pill twice daily, and Ativan 1 mg 3 times a day as needed for anxiety. Medications will be given through the PEG tube. Prior to discharge patient's mother will be educated on tube feeds and other requirements. Home health will be arranged with services. Diet: Jevity 1.5 Activity: Fall precautions Followup: JAGUAR MONTESINOS [Primary Care Provider] - Time spent managing pt's care (in minutes): 55
--- NOTE | 2021-02-16 08:45 | P.PN ---
Subjective Date of Service: 02/16/21 Primary Care Provider: Out of [facility] doctor cardiology Dr. Mott Chief Complaint: Pneumonia Subjective: Doing well (Patient tolerating feeds. No complaints noted. Patient on room air.) Physical Examination - Vital Signs Temperature: 99.2 F Blood Pressure: 109/56 Pulse: 111 Respirations: 18 Pulse Ox (%): 87 - Studies Medications List Reviewed: Yes Assessment & Plan Discharge Plan: Home Plan to discharge in: 24 Hours Physician Review Additional Text: Modified barium swallow: COMPARISON: No comparisons TECHNIQUE: The patient was given liquid, semi-solid and solid forms of barium. Lateral view fluoroscopic imaging was performed in conjunction with speech pathology service. Findings: Laryngeal penetration cleared with thin by straw, pharyngeal residue vallecular mild with thin, nectar, pudding. Moderate with honey and severe with margy cracker. Pyriform minimal with thin, mild with nectar and honey, moderate with putting. Posterior wall minimal with thin, mild with pudding, moderate to severe with margy cracker. Severe kyphosis, decreased epiglottal inversion, 2- second swallow delay, severe esophageal stasis and dysmotility with pudding and barium tablet. CT Scan: COMPARISON: None. TECHNIQUE: Dynamically enhanced axial 3 mm thick images of the chest were obtained during administration of <100> mL Isovue 370 IV contrast. Coronal and oblique reconstruction images were generated and reviewed. Exam utilizes a protocol for optimal evaluation of pulmonary arterial tree. Maximum intensity projections 3D imaging was utilized All CT scans are performed using dose optimization technique as appropriate and may include automated exposure control or mA/KV adjustment according to patient size. FINDINGS: A pulmonary embolus is not seen. A thoracic aortic aneurysm is not noted. Small right pleural effusion. A pericardial effusion is not seen. Moderate to large right middle and right lower lobe consolidation with atelectasis. Right lower lobe bronchus is occluded. Mild lingular opacity The gallbladder is only partially imaged on this exam. The wall may be thi ckened. If clinically indicated further evaluation ultrasound could be obtained IMPRESSION: Negative for a pulmonary embolism. Moderate to large right pneumonia with atelectasis. Occlusion of the right lower lobe bronchus this should be followed until has cleared to help exclude an endobronchial lesion Small right pleural effusion ECHO: MEASUREMENTS (cm) DIASTOLIC (NORMALS) SYSTOLIC (NORMALS) IVSd 0.7 (0.6-1.2) LA Diam 3.0 (1.9-4.0) LVEF 58% LVIDd 5.1 (3.5-5.7) LVIDs 3.5 (2.0-3.5) %FS 30% LVPWd 0.7 (0.6-1.2) Ao Diam 3.1 (2.0-3.7) 2 DIMENSIONAL ASSESSMENT: RIGHT ATRIUM: NORMAL LEFT ATRIUM: NORMAL RIGHT VENTRICLE: NORMAL LEFT VENTRICLE: NORMAL TRICUSPID VALVE: NORMAL MITRAL VALVE: NORMAL PULMONIC VALVE: NORMAL AORTIC VALVE: NORMAL PERICARDIAL EFFUSION: TRACE AORTIC ROOT: NORMAL LEFT VENTRICULAR WALL MOTION: NORMAL EJECTION FRACTION DECREASED LEFT VENTRICULAR COMPLIANCE. DOPPLER/COLOR FLOW: NORMAL. COMMENTS: TRACE OF PERICARDIAL EFFUSION. NORMAL LEFT VENTRICULAR SIZE. DECREASED LEFT VENTRICULAR COMPLIANCE. NORMAL OVERALL EJECTION FRACTION. Surgery 02/09/2021: Insertion of PEG tube Follow up CXR: COMPARISON: Chest Single View dated 02/13/2021; Chest Single View dated 02/12/2021; Chest Single View dated 02/10/2021; Chest Single View dated 02/09/2021 FINDINGS: Unchanged consolidative airspace disease in the right lower lobe. The lungs volumes are slightly improved. Left lung remains clear. The heart size is within normal limits.No acute osseous abnormality. No significant pleural effusions or pneumothorax. IMPRESSION: Slight improved lung volumes but otherwise similar right basilar consolidative airspace disease. The left lung remains clear. Physical Exam: General: Alert, In no apparent distress, patient talkative today. HEENT: Neck supple Respiratory: No distress noted. Patient on room air. Cardiovascular: Mild tachycardia. Overall stable normal S1 S2 Capillary refill: <2 Seconds Gastrointestinal: Normal bowel sounds, No tenderness. PEG tube in place. Musculoskeletal: No tenderness Integumentary: No rashes Neurological: Normal affect, Other (Wheelchair-bound), Abnormal speech, Abnormal strength, Abnormal tone Impression: Acute hypoxic respiratory failure secondary to right lower lobe pneumonia likely aspiration with noted abnormal modified barium swallow showing severe esophageal stasis, dysmotility and decreased epiglottal inversion with worsening dysphagia Muscular dystrophy Cardiomyopathy with underlying chronic diastolic CHF secondary to muscular dystrophy Bipolar disorder Plan Acute hypoxic respiratory failure secondary to large consolidated right lower lobe pneumonia likely aspiration with noted abnormal modified barium swallow showing severe esophageal stasis, dysmotility and decreased epiglottal inversion with worsening dysphagia: Patient has done well. Anticipate likely discharge today if home health, suction device, PEG tube feeds as an outpatient can be arranged. Patient currently on Jevity 1.5 360 mL bolus feeds three times a day. No need for an IV at this time. Patient on room air. Patient will continue with doxycycline and Augmentin for 7 days. Case discussed with social services aide to help arrange all that is needed for the patient. If successful we will plan on discharge later today. 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 Blood pressure improved. Continue metoprolol 12.5 mg 1 pill twice daily. Parameters in place. BPD: Continue with home medications-folic acid 1 mg daily, benztropine 2 mg 1 pill twice daily, Celexa 20 mg daily, and Risperdal 4 mg 1 pill twice daily Code Status: Full code DVT Prophylaxis: Lovenox Advanced Care Planning: Anticipate home discharge later today if arrangements for home health, suction device and bolus feeds are arranged. Time Spent Managing Pts Care (In Minutes): 55
[2021-02-16] MEDS ORDERED: JEVITY 1.5 CAL LIQUID 1,000 ML BOT FT SCH (09:00)
[2021-02-16] MEDS: RISPERIDONE 1 MG TABLET PO SCH (09:24)
[2021-02-16] MEDS: AMOX/K CLAV 500 MG TAB PO SCH (09:25)
[2021-02-16] MEDS: CITALOPRAM 10 MG TABLET PO SCH (09:25)
[2021-02-16] MEDS: DOXYCYCLINE 100 MG CAP PO SCH (09:25)
[2021-02-16] MEDS: BENZTROPINE 1 MG TAB PO SCH (09:25)
[2021-02-16] MEDS: FOLIC ACID 1 MG in NA CHLORIDE 0.9% 50 ML IV SCH (09:26)
[2021-02-16 10:29] VITALS: O2SAT 94
--- NOTE | 2021-02-16 15:55 | RAD REPORT ---
EXAM DESCRIPTION: RAD - Barium Swallow Modified - 02/16/2021 3:48 pm CLINICAL HISTORY: Reevaluation COMPARISON: Barium Swallow Modified dated 02/05/2021 TECHNIQUE: The patient was given liquid, semi-solid and solid forms of barium. Lateral view fluorosc opic imaging was performed in conjunction with speech pathology service. FINDINGS: Laryngeal penetration: not cleared with thin by tsp Pharyngeal residue: vallecular pyriform (mild with thin, nectar, honey, puree) Posterior wall (mild w ith pudding) Total fluoroscopy time: 4 minutes and 7 seconds
[2021-02-16 16:05] VITALS: BP 114/66; TEMP 98.3
== END 2021-02-16 16:04 | disposition home health service (06) | DRG 177 ==
LOC: ER 22:16 → 4TH 02-05 01:26 → 2ND 02-05 02:24
PROVIDERS: ADMIT Family Medicine; ATTEND Family Medicine
PROC: 0DH63UZ Insertion of Feeding Device into Stomach, Percutaneous Approach (ICD-10-PCS; principal; 2021-02-09 10:00)
DX: J69.0 Pneumonitis due to inhalation of food and vomit (principal); J96.01 Acute respiratory failure with hypoxia; R53.2 Functional quadriplegia; I50.32 Chronic diastolic (congestive) heart failure; I43 Cardiomyopathy in diseases classified elsewhere; E44.0 Moderate protein-calorie malnutrition; Z68.1 Body mass index [BMI] 19.9 or less, adult; J98.11 Atelectasis; R13.10 Dysphagia, unspecified; G71.00 Muscular dystrophy, unspecified; K22.8 Other specified diseases of esophagus; F31.9 Bipolar disorder, unspecified; Z20.822 Contact with and (suspected) exposure to COVID-19
CPT/HCPCS: 36415; 71045; 71275; 74230; 80048; 80053; 80076; 81003; 81015; 82805; 82947; 83690; 83735; 83880; 84132; 84145; 84439; 84443; 84484; 85025; 85610; 85730; 87040; 92611; 93005; 93306; 94640; 94667; 94668; 94760; 96365; 97112; 97162; 97530; 99285; J0515; J1100; J1200; J1650; J1940; J2270; J2405; J2543; J2704; J3411; J3475; J3480; J7030; J7042; J7050; J7120; Q9967; U0003

== ENCOUNTER 2021-04-19 04:06 | Inpatient (IN) | payer OTHER ==
[2021-04-19 04:51] LABS: Absolute Lymphocytes (CBC) 1.7 K/uL (0.7-4.9); Basophils % 0.2 % (0-1.3); Hematocrit 32.1 % (39.6-49.0); Lymphocytes % 20.4 % (15.3-44.8); MPV 8.1 fL (7.6-11.3); RBC Red Blood Cell Count 3.73 M/uL (4.33-5.43)
[2021-04-19 04:52] LABS: Protime INR 1.28
[2021-04-19 04:57] LABS: Arterial Blood Carboxyhemoglob 1.1 % (0-1.5); Blood Gas Oxyhemoglobin 97.7 % (94-97); Blood O2 Saturation 99.6 % (92-98.5)
[2021-04-19] MEDS ORDERED: IPRATROPIUM BROM 0.5MG/2.5ML ONE (05:06)
[2021-04-19] MEDS ORDERED: ALBUTEROL 2.5 MG/3 ML NEB SOL ONE (05:06)
[2021-04-19 05:17] LABS: ALT/SGPT 88 U/L (12-78); AST/SGOT 50 U/L (15-37); Albumin 2.6 g/dL (3.4-5.0); Alkaline Phosphatase 61 U/L (45-117); BUN Blood Urea Nitrogen 13 mg/dL (7-18); Bicarbonate 39 mmol/L (21-32); Bilirubin Direct < 0.1 mg/dL (0-0.2); Bilirubin Total 0.1 mg/dL (0.2-1.0); Glucose Level 208 mg/dL (74-106); NT PRO-BNP 285 pg/mL (<125); Potassium 4.2 mmol/L (3.5-5.1); Protein, Total 6.9 g/dL (6.4-8.2); Sodium Level 137 mmol/L (136-145); Troponin (Emerg Dept Use Only) 0.08 ng/mL (0.0-0.045)
--- NOTE | 2021-04-19 05:17 | ER ---
Nurse's Notes [facility] Name: Carter Zapata Age: 40 yrs Sex: Male : 1980 Arrival Date: 04/19/2021 Time: 04:07 Bed 5 Private MD: Diagnosis: Lobar pneumonia, unspecified organism-Hypoxia Presentation: 04/19 04:08 Initial Sepsis Screen: Does the patient meet any 2 criteria? RR > 20 per min. Altered wg Mental Status. HR > 90 bpm. Yes Does the patient have a suspected source of infection? Yes:. Risk Assessment: Do you want to hurt yourself or someone else? Patient reports no desire to harm self or others. Onset of symptoms was April 19, 2021 at 03:45. Care prior to arrival: None. 04:08 Acuity: JOSÉ MIGUEL 2 wg 04:08 Acuity: JOSÉ MIGUEL 2 wg 04:08 Chief complaint: Patient states: Mother states she woke up and pt seemed pale and was wg breathing differently. Mother states pt has a hx of Muscular Dystrophy and is hard to tell what is going on. States she has a pulse Oximeter at home and his O2 was 62% on him and 98% on her. Coronavirus screen: Vaccine status: Patient reports receiving the 2nd dose of the covid vaccine. Date September 01, 2020 Client denies travel out of the [place] in the last 14 days. Client presents with at least one sign or symptom that may indicate coronavirus-19. Ebola Screen: Patient negative for fever greater than or equal to 101.5 degrees Fahrenheit, and additional compatible Ebola Virus Disease symptoms Patient denies exposure to infectious person. Patient denies travel to an Ebola-affected area in the 21 days before illness onset. No symptoms or risks identified at this time. 04:08 Method Of Arrival: Wheelchair wg 04:36 Note Upon arrival, pt clearly in respiratory distress. Pt brought immediately back to room. Room air Sat 66%, cyanotic/ashen, and struggling to breath. NRB 15LPM applied and O2 came up to the low upper 80's. MD at bedside. Triage Assessment: 04:08 Respiratory: Breath sounds are diminished bilaterally. Breath sounds with rhonchi wg bilaterally. 04:10 GI: PEG tube. wg 04:31 General: Appears distressed, uncomfortable, well groomed, Behavior is anxious, wg restless. Pain: Denies pain. Cardiovascular: Capillary refill < 3 seconds cyanotic, ashen, cool, pale, dry, tachycardic. Respiratory: Reports shortness of breath air hunger labored breathing Onset: The symptoms/episode began/occurred this morning, the patient has severe shortness of breath. Historical: - Allergies: 04:31 No Known Allergies; wg - Home Meds: 04:31 risperidone Oral [Active]; Celexa Oral [Active]; Spironolactone Oral [Active]; wg sertraline oral [Active]; - PMHx: 04:31 muscular dystrophy; cardiomyopathy; Anxiety; Bipolar disorder; wg - Immunization history:: Adult Immunizations. - Social history:: Smoking status: Patient denies any tobacco usage or history of. Screenin:35 Abuse screen: Denies threats or abuse. Denies injuries from another. Nutritional wg screening: No deficits noted. Tuberculosis screening: No symptoms or risk factors identified. Fall Risk Secondary diagnosis (15 points) Sepsis Screening:. Assessment: 05:45 Reassessment: Patient appears in no apparent distress at this time. Patient and/or wg family updated on plan of care and expected duration. Pain level reassessed. Patient is alert, oriented x 3, equal unlabored respirations, skin warm/dry/pink. Pt on bubbler at 4LPM. General:. Cardiovascular: Rhythm is sinus tachycardia. Respiratory: Airway is patent Trachea midline Respiratory effort is even, Respiratory pattern is regular, symmetrical. 06:26 Reassessment: Patient appears in no apparent distress at this time. No changes from wg previously documented assessment. Patient and/or family updated on plan of care and expected duration. Pain level reassessed. Patient is alert, oriented x 3, equal unlabored respirations, skin warm/dry/pink. 07:31 Reassessment: Patient and/or family updated on plan of care and expected duration. Pain es2 level reassessed. Patient is alert, oriented x 3, equal unlabored respirations, skin warm/dry/pink. Pt reports being uncomfortable, repositioned in bed, voiced comfort. General: Appears uncomfortable, ill, slender, Behavior is anxious. Neuro: Level of Consciousness is awake, alert, obeys commands, Oriented to person, place, time. Cardiovascular: Patient's skin is warm and dry. Respiratory: Airway is patent Respiratory effort is even, Respiratory pattern is regular, symmetrical. Vital Signs: 04:08 BP 138 / 74; Pulse 124; Resp 30; Temp 99.1; Pulse Ox 66% on R/A; Weight 52.16 kg; wg Height 5 ft. 3 in. (160.02 cm); Pain 0/10; 04:44 BP 112 / 68; Pulse 124; Resp 28; Pulse Ox 96% on 15% Non-rebreather mask; wg 05:44 BP 102 / 74; Pulse 122; Resp 28; Pulse Ox 98% on 4 lpm NC; wg 06:25 BP 106 / 75; Pulse 126; Resp 26; Pulse Ox 95% on 4 lpm NC; wg 07:37 BP 111 / 74; Pulse 120; Resp 24; Pulse Ox 94% on 4 lpm NC; es2 04:08 Body Mass Index 20.37 (52.16 kg, 160.02 cm) wg ED Course: 04:07 Patient arrived in ED. bp1 04:14 Anupam Olson MD is Attending Physician. 7 04:25 Gael Zarate, RN is Primary Nurse. wg 04:31 Triage completed. wg 04:31 Arm band placed on right wrist. EKG completed in triage. Results shown to MD. wg 04:35 Patient has correct armband on for positive identification. Fall risk band placed. wg Placed in gown. Bed in low position. Call light in reach. Side rails up X2. Adult w/ patient. alarm security or surveillance monitor on. Pulse ox on. NIBP on. 04:35 No provider procedures requiring assistance completed. Inserted saline lock: 20 gauge wg in right antecubital area, using aseptic technique. 04:41 Influenza Screen (a \T\ B) Sent. wg 04:41 Blood Culture Adult (2) Sent. wg 04:41 Blood Culture Sent. wg 04:52 XRAY Chest (1 view) In Process Unspecified. EDMS 05:14 Bruce Vargas MD is Hospitalizing Provider. 7 07:03 Primary Nurse role handed off by Gael Zarate, RN ch5 07:03 Dennis Lyn, BEENA is Primary Nurse. ch5 Administered Medications: 04:42 Drug: AtroVENT (ipratropium) Aerosol 0.5 mg Route: Inhalation; cw2 05:48 Follow up: Response: No adverse reaction 04:43 Drug: Albuterol 2.5 mg Route: Inhalation; cw2 05:48 Follow up: Response: No adverse reaction 05:07 Drug: Rocephin (cefTRIAXone) 1 grams Route: IV; Rate: per protocol; Site: right forearm;ea 05:47 Follow up: Response: No adverse reaction 05:08 Drug: Zithromax (azithromycin) 500 mg Route: IVPB; Infused Over: 1 hrs; Site: right ea forearm; 05:47 Follow up: IV Status: Completed infusion; IV Intake: 500ml 05:47 Follow up: Response: No adverse reaction Intake: 05:47 IV: 500ml; Total: 500ml. Outcome: 05:16 Decision to Hospitalize by Provider. [facility] 08:15 Patient left the ED. [facility] Signatures: Dispatcher [employer] EDMS Gin Jordan RN RN Amanda Jiménez Maurice, MD MD [facility] Dennis Lyn RN RN [facility] Gael Zarate RN Dennis Ritchie RN RN 2 Paradise Vicente Corrections: (The following items were deleted from the chart) :39 04:26 Chief complaint: Patient states: Mother states she woke up and pt seemed pale and wg was breathing differently. Mother states pt has a hx of Muscular Dystrophy and is hard to tell what is going on. States she has a pulse Oximeter at home and his O2 was 62% on him and 98% on her. :39 04:26 Coronavirus screen: Vaccine status: Patient reports receiving the 2nd dose of the covid vaccine. Date September 01, 2020 Client denies travel out of the [place] in the last 14 days. Client presents with at least one sign or symptom that may indicate coronavirus-19. :39 04:26 Ebola Screen: Patient negative for fever greater than or equal to 101.5 degrees wg Fahrenheit, and additional compatible Ebola Virus Disease symptoms Patient denies exposure to infectious person. Patient denies travel to an Ebola-affected area in the 21 days before illness onset. No symptoms or risks identified at this time. :39 04:26 Method Of Arrival: Wheelchair [facility] 04:45 04:41 CORONAVIRUS+MR.LAB.BRZ drawn and sent. EDMS
--- NOTE | 2021-04-19 05:17 | EDPHYS ---
Physician Documentation [facility] Name: Carter Zapata Age: 40 yrs Sex: Male : 1980 Arrival Date: 04/19/2021 Time: 04:07 Bed 5 Private MD: ED Physician Anupam Olson HPI: 04/19 04:10 This 40 yrs old Male presents to ER via Wheelchair with complaints of mh7 Breathing Difficulty, Low O2 - 66% at home. 04:10 The patient has shortness of breath at rest. Onset: The symptoms/episode began/occurred mh7 today. Duration: The symptoms are continuous, and are unchanged since they started. The patient's shortness of breath is aggravated by nothing, is alleviated by nothing. Associated signs and symptoms: Pertinent negatives: chest pain, non-productive cough, productive cough, diaphoresis, dizziness, fever, hemoptysis, loss of consciousness, nausea, numbness in extremities, visual changes, vomiting. Severity of symptoms: At their worst the symptoms were moderate today, in the emergency department the symptoms are unchanged. Historical: - Allergies: 04:31 No Known Allergies; wg - Home Meds: 04:31 risperidone Oral [Active]; Celexa Oral [Active]; Spironolactone Oral [Active]; wg sertraline oral [Active]; - PMHx: 04:31 muscular dystrophy; cardiomyopathy; Anxiety; Bipolar disorder; wg - Immunization history:: Adult Immunizations. - Social history:: Smoking status: Patient denies any tobacco usage or history of. ROS: 04:10 Constitutional: Negative for fever, chills, and weight loss, Eyes: Negative for injury, mh7 pain, redness, and discharge, ENT: Negative for injury, pain, and discharge, Neck: Negative for injury, pain, and swelling, Cardiovascular: Negative for chest pain, palpitations, and edema, Abdomen/GI: Negative for abdominal pain, nausea, vomiting, diarrhea, and constipation, Back: Negative for injury and pain, : Negative for injury, bleeding, discharge, and swelling, MS/Extremity: Negative for injury and deformity, Skin: Negative for injury, rash, and discoloration, Neuro: Negative for headache, weakness, numbness, tingling, and seizure, Psych: Negative for depression, anxiety, suicide ideation, homicidal ideation, and hallucinations, Allergy/Immunology: Negative for hives, rash, and allergies, Endocrine: Negative for neck swelling, polydipsia, polyuria, polyphagia, and marked weight changes, Hematologic/Lymphatic: Negative for swollen nodes, abnormal bleeding, and unusual bruising. Exam: 04:10 Head/Face: Normocephalic, atraumatic. Eyes: Pupils equal round and reactive to light, mh7 extra-ocular motions intact. Lids and lashes normal. Conjunctiva and sclera are non-icteric and not injected. Cornea within normal limits. Periorbital areas with no swelling, redness, or edema. Neck: Trachea midline, no thyromegaly or masses palpated, and no cervical lymphadenopathy. Supple, full range of motion without nuchal rigidity, or vertebral point tenderness. No Meningismus. Chest/axilla: Normal chest wall appearance and motion. Nontender with no deformity. No lesions are appreciated. 04:10 Abdomen/GI: Soft, non-tender, with normal bowel sounds. No distension or tympany. No guarding or rebound. No evidence of tenderness throughout. Back: No spinal tenderness. No costovertebral tenderness. Full range of motion. Skin: Warm, dry with normal turgor. Normal color with no rashes, no lesions, and no evidence of cellulitis. MS/ Extremity: Pulses equal, no cyanosis. Neurovascular intact. Full, normal range of motion. Neuro: Awake and alert, GCS 15, oriented to person, place, time, and situation. Cranial nerves II-XII grossly intact. Motor strength 5/5 in all extremities. Sensory grossly intact. Cerebellar exam normal. Normal gait. Psych: Awake, alert, with orientation to person, place and time. Behavior, mood, and affect are within normal limits. 04:10 Constitutional: The patient appears alert, awake, in obvious distress, mildly distressed. 04:10 Cardiovascular: Rate: tachycardic, Rhythm: regular, Pulses: no pulse deficits are appreciated, Heart sounds: normal, normal S1and S2, Edema: is not appreciated, JVD: is not appreciated. 04:10 Respiratory: mild respiratory distress is noted, Respirations: prolonged exhalation, that is mild, tachypnea, that is mild, Breath sounds: rhonchi, that are mild, are heard diffusely, Respiratory rate: 30 Vital Signs: 04:08 BP 138 / 74; Pulse 124; Resp 30; Temp 99.1; Pulse Ox 66% on R/A; Weight 52.16 kg; wg Height 5 ft. 3 in. (160.02 cm); Pain 0/10; 04:44 BP 112 / 68; Pulse 124; Resp 28; Pulse Ox 96% on 15% Non-rebreather mask; wg 05:44 BP 102 / 74; Pulse 122; Resp 28; Pulse Ox 98% on 4 lpm NC; wg 06:25 BP 106 / 75; Pulse 126; Resp 26; Pulse Ox 95% on 4 lpm NC; wg 07:37 BP 111 / 74; Pulse 120; Resp 24; Pulse Ox 94% on 4 lpm NC; es2 04:08 Body Mass Index 20.37 (52.16 kg, 160.02 cm) wg MDM: 05:12 Differential diagnosis: Anemia Anxiety Reaction asthma, Bronchitis CHF exacerbation, mh7 Chronic Obstructive Pulmonary Disease Myocardial Infarction pneumonia, Pneumothorax Psychogenic pulmonary edema, reactive airway disease. Data reviewed: vital signs, nurses notes, old medical records, lab test result(s), cardiac enzymes, CBC, electrolytes, EKG, radiologic studies, plain films. Data interpreted: Pulse oximetry: on 100% oxygen by non-rebreather, is 99 %. Interpretation: acceptable. Counseling: I had a detailed discussion with the patient and/or guardian regarding: the historical points, exam findings, and any diagnostic results supporting the discharge/admit diagnosis, lab results, radiology results, the need for further work-up and treatment in the hospital. Response to treatment: the patient's symptoms have markedly improved after treatment. 05:16 Patient medically screened. 04/19 04:23 Order name: Basic Metabolic Panel; Complete Time: 05:04/19 04:23 Order name: CBC with Diff; Complete Time: 05:04/19 04:23 Order name: LFT's; Complete Time: 05:04/19 04:23 Order name: Magnesium; Complete Time: 05:04/19 04:23 Order name: NT PRO-BNP; Complete Time: 05:04/19 04:23 Order name: PT-INR; Complete Time: 05:04/19 04:23 Order name: Troponin (emerg Dept Use Only); Complete Time: 05:7 04/19 04:24 Order name: Blood Culture Adult (2) [facility] 04/19 04:24 Order name: Influenza Screen (a \T\ B); Complete Time: 05:47 [facility] 04/19 04:25 Order name: Blood Culture [facility] 04/19 04:25 Order name: Lactate; Complete Time: 05:06 [facility] 04/19 04:25 Order name: Procalcitonin; Complete Time: 05:26 [facility] 04/19 04:36 Order name: ABG; Complete Time: 05:26 1 04/19 04:23 Order name: XRAY Chest (1 view) [facility] 04/19 04:23 Order name: EKG; Complete Time: 04:24 [facility] 04/19 04:23 Order name: Cardiac monitoring; Complete Time: 04:40 [facility] 04/19 04:23 Order name: EKG - Nurse/Tech; Complete Time: 04:40 [facility] 04/19 04:23 Order name: IV Saline Lock; Complete Time: 04:40 [facility] 04/19 04:23 Order name: Labs collected and sent; Complete Time: 04:40 [facility] 04/19 04:23 Order name: O2 Per Protocol; Complete Time: 04:40 [facility] 04/19 04:23 Order name: O2 Sat Monitoring; Complete Time: 04:40 [facility] 04/19 05:29 Order name: CONS Physician Consult; Complete Time: 05:48 [facility] 04/19 05:39 Order name: SARS-COV-2 RT PCR; Complete Time: 05:47 [facility] 04/19 07:41 Order name: Glucose, Ancillary Testing EDWV Administered Medications: 04:42 Drug: AtroVENT (ipratropium) Aerosol 0.5 mg Route: Inhalation; 2 05:48 Follow up: Response: No adverse reaction wg 04:43 Drug: Albuterol 2.5 mg Route: Inhalation; cw2 05:48 Follow up: Response: No adverse reaction wg 05:07 Drug: Rocephin (cefTRIAXone) 1 grams Route: IV; Rate: per protocol; Site: right forearm;ea 05:47 Follow up: Response: No adverse reaction wg 05:08 Drug: Zithromax (azithromycin) 500 mg Route: IVPB; Infused Over: 1 hrs; Site: right ea forearm; 05:47 Follow up: IV Status: Completed infusion; IV Intake: 500ml 05:47 Follow up: Response: No adverse reaction Disposition Summary: 04/19/21 05:16 Hospitalization Ordered Hospitalization Status: Inpatient Admission [facility] Provider: Bruce Vargas Location: Telemetry/MedSur (Inpatient) [facility] Condition: Stable [facility] Problem: an acute exacerbation [facility] Symptoms: have improved [facility] Bed/Room Type: Standard [facility] Room Assignment: 225(04/19/21 07:23) eb Diagnosis - Lobar pneumonia, unspecified organism - Hypoxia [facility] Forms: - Medication Reconciliation Form [facility] - SBAR form [facility] Signatures: Dispatcher [employer] EDDru Pike PA PA [id number] Gin Jordan RN RN Paradise Walker Maurice, MD MD [facility] Gael Zarate RN wg Williams, Christopher, RN RN cw2 Corrections: (The following items were deleted from the chart) 04:45 04:25 CORONAVIRUS+MR.LAB.BRZ ordered. EDWV EDWV 07:23 05:16 [facility]
[2021-04-19] MEDS ORDERED: AZITHROMYCIN 500 MG INJ IVPB ONE (05:21)
[2021-04-19] MEDS ORDERED: NA CHLORIDE 0.9% 250 ML ONE (05:21)
[2021-04-19] MEDS ORDERED: CEFTRIAXONE/SWI 1gm 1 GM/10 ML SYR ONE (05:21)
--- NOTE | 2021-04-19 05:46 | P.HP ---
Certification for Inpatient Patient admitted to: Inpatient With expected LOS: >2 Midnights Patient will require the following post-hospital care: None Practitioner: I am a practitioner with admitting privileges, knowledge of patient current condition, hospital course, and medical plan of care. Services: Services provided to patient in accordance with Admission requirements found in Title 42 Section 412.3 of the Code of Federal Regulations <Niles Gandhi - Last Filed: 04/19/21 05:41> Patient History Date of Service: 04/19/21 Reason for admission: pneumonia History of Present Illness: This is a 40-year-old male patient with a history of muscular dystrophy, cardiomyopathy, anxiety, bipolar disorder that presented to the emergency room with hypoxia. 's caregiver stated that he had been having an increased sputum production. Was diagnosed with pneumonia this past January and been treated for it. 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 Since then has had increased production. Caregiver aureliano stated that he was choking on secretions because there was so much. Had checked his pulse oximetry and found that it was in the 60s. EMS was called at that time to bring patient for further evaluation. Patient was worked up in the emergency room and found to have a left base infiltrate. White cell count was 8.2, hemoglobin 10.3, hematocrit 32.1, platelet 286. Patient sodium was 137, potassium 4.2, c hloride 96, bicarb 39, BUN 13, creatinine 0.14, glucose 208. Patient's BNP 285, troponin of 0.08. Patient had a ABG completed that showed a pH of 7.30 PCO2 86.3. Patient was given breathing treatments and put on antibiotics and oxygen therapy. Patient feeling markedly better at this time. Medicine consult at that time for further evaluation. 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 - Family History Mother -: Hypertension - Social History Smoking Status: Never smoker Smoking therapy provided: No Alcohol use: No CD- Drugs: No Caffeine use: No Place of Residence: Home <Niles Gandhi - Last Filed: 04/19/21 05:41> Date of Service: 04/19/21 <Bruce Vargas - Last Filed: 04/19/21 09:20> Allergies No Known Allergies Allergy (Unverified 02/05/21 02:54) Home Medications: Benztropine Mesylate [Cogentin] 2 mg PO BID 02/05/21 Citalopram [Celexa*] 20 mg PO DAILY 02/05/21 LORazepam [Ativan*] 1 mg PO PRN PRN 02/05/21 Sacubitril/Valsartan [Entresto 24 mg-26 mg Tablet] 0.5 tab PO BID 02/05/21 Spironolactone 12.5 mg PO DAILY 02/05/21 risperiDONE [Risperdal] 4 mg PO BID 02/05/21 Amox Tr/Potassium Clavulanate [Augmentin 400-57 mg/5 ml] 5 ml FT BID #1 bottle 02/16/21 Doxycycline Hyclate 100 mg FT BID #14 tablet 02/16/21 Folic Acid 1 mg FT DAILY #90 tablet 02/16/21 Jevity 1.5 Oracio Liquid 360 ml FT TID #90 bot 02/16/21 Metoprolol Tartrate [Lopressor*] 25 mg FT BID 6AM 6PM #60 tab 02/16/21 Review of Systems General: Unremarkable Eyes: Unremarkable ENT: Unremarkable Respiratory: As per HPI Cardiovascular: Unremarkable Gastrointestinal: Unremarkable Musculoskeletal: Atrophy Integumentary: Unremarkable Neurological: Weakness <Niles Gandhi - Last Filed: 04/19/21 05:41> Physical Examination - Vital Signs Temperature: 99.1 F Blood Pressure: 138/74 Pulse: 124 Respirations: 28 Pulse Ox (%): 96 (15 liters nonrebreather) - Physical Exam General: Alert, In no apparent distress, Oriented x3 HEENT: PERRLA, Mucous membr. moist/pink Neck: Supple, 2+ carotid pulse no bruit, JVD not distended Respiratory: Clear to auscultation bilaterally Cardiovascular: No edema, Normal pulses, Normal S1 S2, Other (Tachycardic) Capillary refill: <2 Seconds Gastrointestinal: Normal bowel sounds, Soft and benign, Non-distended, No ascites, No tenderness, No masses, No rebound, No guarding, Other (Gastrostomy tube placed and without acute findings) Musculoskeletal: No clubbing, No swelling, No contractures, No erythema, No tenderness, No warmth Integumentary: No rashes, No breakdown, No significant lesion, No tenderness/swelling, No erythema, No warmth, No cyanosis Neurological: Sensation intact, Normal affect, Other (Patient with muscular dystrophy advanced ages. Patient with gross weakness in all extremities.) Lymphatics: No axilla or inguinal lymphadenopathy - Studies Laboratory Data (last 24 hrs) 04/19/21 04:30: PT 14.7 H, INR 1.28 04/19/21 04:30: WBC 8.20, Hgb 10.3 L, Hct 32.1 L, Plt Count 286 04/19/21 04:30: Sodium 137, Potassium 4.2, BUN 13, Creatinine < 0.15 L, Glucose 208 H, Magnesium 2.0, Total Bilirubin 0.1 L, AST 50 H, ALT 88 H, Alkaline Phosphatase 61 Microbiology Data (last 24 hrs): 04/19/21 04:30 Nasopharnyx Influenza Type A Antigen Screen - Final 04/19/21 04:30 Nasopharnyx Influenza Type B Antigen Screen - Final <Niles Gandhi - Last Filed: 04/19/21 05:41> - Studies Laboratory Data (last 24 hrs) 04/19/21 04:30: PT 14.7 H, INR 1.28 04/19/21 04:30: WBC 8.20, Hgb 10.3 L, Hct 32.1 L, Plt Count 286 04/19/21 04:30: Sodium 137, Potassium 4.2, BUN 13, Creatinine < 0.15 L, Glucose 208 H, Magnesium 2.0, Total Bilirubin 0.1 L, AST 50 H, ALT 88 H, Alkaline Phosphatase 61 Microbiology Data (last 24 hrs): 04/19/21 04:30 Nasopharnyx Influenza Type A Antigen Screen - Final 04/19/21 04:30 Nasopharnyx Influenza Type B Antigen Screen - Final <Bruce Vargas - Last Filed: 04/19/21 09:20> Assessment and Plan - Problems (Diagnosis) (1) Pneumonia Current Visit: Yes Status: Acute Qualifiers: Pneumonia type: due to unspecified organism Laterality: left Lung location: lower lobe of lung Qualified Code(s): J18.9 - Pneumonia, unspecified organism (2) Hypoxia Current Visit: Yes Status: Acute (3) Hyperglycemia Current Visit: Yes Status: Acute (4) Muscular dystrophy Current Visit: No Status: Chronic - Plan 1. Patient will be admitted to telemetry for further monitoring of his pneumonia 2. Patient will remain on nasal cannula with humidified oxygen at this time. Will increase or decrease as needed 3. Patient will remain on antibiotics for the pneumonia 4. Pulmonology consulted as patient has muscular dystrophy with pneumonia 5. Patient will be hydrated via IV 6. Tube feeds via his gastrostomy tube 7. Recheck labs in the morning 8. A1c will be checked as patient's glucose is 208 and does not have a history of diabetes 9. We will trend his troponin Discharge Plan: Home Plan to discharge in: 48 Hours - Advance Directives Does patient have a Living Will: No Does patient have a Durable POA for Healthcare: Yes - Code Status/Comfort Care Code Status Assessed: Yes Code Status: Full Code Critical Care: No Time Spent Managing Pts Care (In Minutes): 80 <Niles Gandhi - Last Filed: 04/19/21 05:41> Assessment/Plan - Assessment/Plan Plan: Pt seen and examined, Neck supple Chest CTA glenn, Heart RRR, Agree with plan of care as outlined above <Bruce Vargas - Last Filed: 04/19/21 09:20>
[2021-04-19] MEDS ORDERED: ACETAMINOPHEN 500 MG TAB PO PRN (07:08)
[2021-04-19] MEDS ORDERED: D50W 25 GM/50 ML SYRINGE IV PRN (07:08)
[2021-04-19] MEDS ORDERED: IPRATROPIUM BROM 0.5MG/2.5ML NEB PRN (07:08)
[2021-04-19] MEDS ORDERED: AZITHROMYCIN IV 500 MG in NA CHLORIDE 0.9% 250 ML IVPB ONE (07:08)
[2021-04-19] MEDS ORDERED: GLUCAGON 1 MG/VIAL IM PRN (07:08)
[2021-04-19] MEDS ORDERED: ALBUTEROL 2.5 MG/3 ML NEB SOL NEB PRN (07:08)
[2021-04-19] MEDS ORDERED: ONDANSETRON 4 MG/2 ML VIAL IV PRN (07:08)
[2021-04-19] MEDS: INSULIN -REGULAR HUMAN 50 UNIT/0.5 ML ML SQ SCH ×4 (07:30→21:00)
--- NOTE | 2021-04-19 08:12 | RAD REPORT ---
EXAM DESCRIPTION: Gabriel Single View04/19/2021 4:52 am CLINICAL HISTORY: sob COMPARISON: January 2021 FINDINGS: Left basilar consolidation. Mild right basilar opacities have improved Heart is normal size IMPRESSION: Left basilar consolidation likely pneumonia Mild right basilar opacities
[2021-04-19 08:49] VITALS: BMI 20.5
[2021-04-19] MEDS: CEFTRIAXONE/SWI 1gm 1 GM/10 ML SYR IVP SCH (08:56)
[2021-04-19] MEDS: NA CHLORIDE 0.9% 1,000 ML IV SCH ×3 (09:00→22:24)
[2021-04-20 04:45] LABS: Absolute Lymphocytes (CBC) 1.4 K/uL (0.7-4.9); Basophils % 0.2 % (0-1.3); Hematocrit 32.1 % (39.6-49.0); Lymphocytes % 18.5 % (15.3-44.8); MPV 7.7 fL (7.6-11.3); RBC Red Blood Cell Count 3.66 M/uL (4.33-5.43)
[2021-04-20 05:41] LABS: BUN Blood Urea Nitrogen 10 mg/dL (7-18); Glucose Level 140 mg/dL (74-106); NT PRO-BNP 822 pg/mL (<125); Potassium 5.2 mmol/L (3.5-5.1); Sodium Level 143 mmol/L (136-145)
[2021-04-20 05:44] LABS: Bicarbonate 44 mmol/L (21-32)
[2021-04-20] MEDS: INSULIN -REGULAR HUMAN 50 UNIT/0.5 ML ML SQ SCH ×4 (07:30→21:00)
[2021-04-20] MEDS: CEFTRIAXONE/SWI 1gm 1 GM/10 ML SYR IVP SCH (09:14)
[2021-04-20] MEDS: NA CHLORIDE 0.9% 1,000 ML IV SCH (09:48)
[2021-04-20] MEDS: LORAZEPAM 0.5 MG TABLET PO SCH (11:19)
[2021-04-20] MEDS ORDERED: SCOPOLAMINE HYDROBROMIDE PATCH TD ONE (11:45)
[2021-04-20] MEDS: acetaZOLAMIDE 250 MG TAB PO SCH (12:35)
--- NOTE | 2021-04-20 12:36 | P.CNS ---
Date of Consult: 04/20/21 Reason for Consult: C resp failure and copious secretions Chief Complaint: pneumonia History of Present Illness: Age 70 hx of DMD recently prescribed a vest c/o copious thick green secretions/ No fever Abnormal CXRY Allergies No Known Allergies Allergy (Unverified 02/05/21 02:54) Home Medications: Benztropine Mesylate [Cogentin] 2 mg PO BID 02/05/21 Citalopram [Celexa*] 20 mg PO DAILY 02/05/21 LORazepam [Ativan*] 1 mg PO PRN PRN 02/05/21 risperiDONE [Risperdal] 4 mg PO BID 02/05/21 Folic Acid 1 mg FT DAILY #90 tablet 02/16/21 Jevity 1.5 Oracio Liquid 360 ml FT TID #90 bot 02/16/21 Carvedilol [Coreg] 1 tab PO BID 04/19/21 - Past Medical/Surgical History Diabetic: No -: Muscular dystrophy -: Cardiomyopathy -: BPD -: Diastolic dysfuntion -: none Psychosocial/ Personal History: Patient is disabled, 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 Sputum cultures/ Augmenting and Doxy/Add low dose diamox. Co2 elevated fromHypercarbia/labs reviewed/ Poss Dc am on AB augumentin and Doxy for 2 wks/ CXRY infiltrate in LLL Qualifiers: Pneumonia type: due to unspecified organism Laterality: left Lung location: lower lobe of lung Qualified Code(s): J18.9 - Pneumonia, unspecified organism
[2021-04-20] MEDS: DOXYCYCLINE 100 MG CAP PO SCH ×2 (13:24→21:10)
[2021-04-20] MEDS: AMOX/K CLAV 500 MG TAB PO SCH ×2 (13:24→21:10)
[2021-04-20] MEDS: JEVITY 1.5 CAL LIQUID 1,000 ML BOT FT SCH ×2 (13:26→21:14)
[2021-04-20] MEDS: carvediloL 3.125 MG TAB PO SCH (21:00)
[2021-04-20] MEDS: RISPERIDONE 1 MG TABLET PO SCH (21:10)
[2021-04-20] MEDS: BENZTROPINE 1 MG TAB PO SCH (21:11)
[2021-04-21] MEDS: INSULIN -REGULAR HUMAN 50 UNIT/0.5 ML ML SQ SCH ×4 (07:30→21:00)
[2021-04-21] MEDS: BENZTROPINE 1 MG TAB PO SCH ×2 (09:00→21:15)
[2021-04-21] MEDS: acetaZOLAMIDE 250 MG TAB PO SCH ×2 (09:00→10:31)
[2021-04-21] MEDS: LORAZEPAM 0.5 MG TABLET PO SCH (09:00)
[2021-04-21] MEDS: carvediloL 3.125 MG TAB PO SCH ×2 (10:29→21:00)
[2021-04-21] MEDS: DOXYCYCLINE 100 MG CAP PO SCH ×2 (10:29→21:12)
[2021-04-21] MEDS: AMOX/K CLAV 500 MG TAB PO SCH ×2 (10:29→21:12)
[2021-04-21] MEDS: FOLIC ACID 1 MG TABLET FT SCH (10:32)
[2021-04-21] MEDS: CITALOPRAM 10 MG TABLET PO SCH (10:32)
[2021-04-21] MEDS: RISPERIDONE 1 MG TABLET PO SCH ×2 (10:32→21:13)
[2021-04-21] MEDS: JEVITY 1.5 CAL LIQUID 1,000 ML BOT FT SCH ×3 (10:33→21:15)
--- NOTE | 2021-04-21 13:14 | P.PN ---
Subjective Date of Service: 04/21/21 Chief Complaint: pneumonia Subjective: Improving (No chnge better on O2) Review of Systems Respiratory: Cough Physical Examination - Vital Signs Temperature: 109 F Blood Pressure: 118/67 Pulse: 99 Respirations: 95 Pulse Ox (%): 99 - Physical Exam General: Alert Assessment & Plan - Problems (Diagnosis) (1) Pneumonia Current Visit: Yes Status: Acute Plan: NC Plan to DC home on antibiotics and Diamox CW vest therapy/ Poss DC today/ sputum cultures Qualifiers: Pneumonia type: due to unspecified organism Laterality: left Lung location: lower lobe of lung Qualified Code(s): J18.9 - Pneumonia, unspecified organism
--- NOTE | 2021-04-21 13:24 | P.PN ---
Subjective Date of Service: 04/20/21 PATIENT IS STILL CONGESTED IN A LITTLE SHORT OF BREATH. WILL CONTINUE WITH CURRENT TREATMENT PLAN. MOTHER IS WORRIED ABOUT SECRETIONS. WILL TRY SCOPOLAMINE PATCH. O2 ARRANGEMENTS WELL. PATIENT IS SATTING 85% ON SITTING UP AND ON ROOM AIR Review of Systems 10-point ROS is otherwise unremarkable Physical Examination - Vital Signs Temperature: 100 F Blood Pressure: 118/67 Pulse: 99 Respirations: 95 Pulse Ox (%): 99 - Physical Exam General: Alert, In no apparent distress, Oriented x3 Respiratory: Diminished, Expiratory wheezes Cardiovascular: Regular rate/rhythm, Normal S1 S2, No murmurs Gastrointestinal: Normal bowel sounds, Soft and benign, Non-distended Musculoskeletal: No clubbing, No swelling Assessment & Plan - Problems (Diagnosis) (1) Hypercapnic respiratory failure Current Visit: Yes Status: Acute (2) Hypoxia Current Visit: Yes Status: Acute (3) Aspiration pneumonia Current Visit: No Status: Acute (4) Muscular dystrophy Current Visit: No Status: Chronic - Plan 1. Continue with IV antibiotics 2. Awaiting sputum and blood culture 3. Repeat chest x-ray 4. Scopolamine patch 5. Appreciate pulmonary consultation 6. Continue with nebs as needed and will also place a scopolamine patch 7. O2 per protocol 8. Supportive care 9. Repeat labs including CBC and renal function in a.m. 10. GI and DVT prophylaxis Discharge Plan: Home Plan to discharge in: Greater than 2 days - Advance Directives Does patient have a Living Will: No Does patient have a Durable POA for Healthcare: Yes - Code Status/Comfort Care Code Status: Full Code Critical Care: No Time Spent Managing PTS Care (In Minutes): 35
[2021-04-22] MEDS: INSULIN -REGULAR HUMAN 50 UNIT/0.5 ML ML SQ SCH ×4 (07:30→20:42)
[2021-04-22] MEDS: acetaZOLAMIDE 250 MG TAB PO SCH (08:57)
[2021-04-22] MEDS: FOLIC ACID 1 MG TABLET FT SCH (08:58)
[2021-04-22] MEDS: AMOX/K CLAV 500 MG TAB PO SCH (08:58)
[2021-04-22] MEDS: CITALOPRAM 10 MG TABLET PO SCH (08:58)
[2021-04-22] MEDS: RISPERIDONE 1 MG TABLET PO SCH ×2 (08:58→21:27)
[2021-04-22] MEDS: DOXYCYCLINE 100 MG CAP PO SCH ×2 (08:58→21:27)
[2021-04-22] MEDS: LORAZEPAM 0.5 MG TABLET PO SCH ×2 (09:00→22:41)
[2021-04-22] MEDS: carvediloL 3.125 MG TAB PO SCH ×2 (09:00→21:26)
[2021-04-22] MEDS: BENZTROPINE 1 MG TAB PO SCH ×2 (09:00→21:28)
[2021-04-22] MEDS: JEVITY 1.5 CAL LIQUID 1,000 ML BOT FT SCH ×3 (09:03→21:29)
[2021-04-22 11:16] LABS: Absolute Lymphocytes (CBC) 1.1 K/uL (0.7-4.9); Basophils % 0.3 % (0-1.3); Hematocrit 31.5 % (39.6-49.0); Lymphocytes % 12.5 % (15.3-44.8); MPV 7.7 fL (7.6-11.3); RBC Red Blood Cell Count 3.61 M/uL (4.33-5.43)
--- NOTE | 2021-04-22 11:32 | RAD REPORT ---
EXAM DESCRIPTION: RAD - Chest Single View - 04/22/2021 10:53 am CLINICAL HISTORY: pneumonia COMPARISON: Chest Single View dated 04/19/2021; Chest Single View dated 02/14/2021; Chest Single View dated 02/13/2021; Chest Single View dated 02/12/2021; Chest For Pe Angio dated 02/06/2021 FINDINGS: Lines: None. Lungs: Low lung volumes with basilar opacities bilaterally. Right basilar opacity is increased since 04/19/2021. Pleural: Bilateral pleural effusions Cardiac: The heart size is within normal limits. Bones: No acute fractures. Other: IMPRESSION: Basilar opacities bilaterally, increased on the right which may reflect worsening pneumo ashlee and/or atelectasis.
[2021-04-22 11:51] LABS: BUN Blood Urea Nitrogen 6 mg/dL (7-18); Glucose Level 138 mg/dL (74-106); Magnesium 2.1 mg/dL (1.8-2.4); NT PRO-BNP 742 pg/mL (<125); Potassium 4.1 mmol/L (3.5-5.1); Sodium Level 139 mmol/L (136-145)
[2021-04-22 11:52] LABS: Bicarbonate 44 mmol/L (21-32)
[2021-04-22] MEDS ORDERED: ALBUTEROL 2.5 MG/3 ML NEB SOL NEB PRN (16:00)
[2021-04-22] MEDS ORDERED: IPRATROPIUM BROM 0.5MG/2.5ML NEB PRN (16:00)
[2021-04-22] MEDS: PIPER TAZO 3.375 GM in NA CHLORIDE 0.9% 100 ML IV SCH (16:14)
[2021-04-22] MEDS ORDERED: PIPERACIL/TAZO 3.375 GM VIAL IV ONE (16:24)
[2021-04-23] MEDS: PIPER TAZO 3.375 GM in NA CHLORIDE 0.9% 100 ML IV SCH ×2 (00:46→09:01)
[2021-04-23] MEDS ORDERED: PIPERACIL/TAZO 3.375 GM VIAL IV ONE ×2 (01:04→08:07)
[2021-04-23 06:49] LABS: Absolute Lymphocytes (CBC) 1.3 K/uL (0.7-4.9); Basophils % 0.4 % (0-1.3); Hematocrit 34.3 % (39.6-49.0); Lymphocytes % 16.9 % (15.3-44.8); MPV 7.5 fL (7.6-11.3); RBC Red Blood Cell Count 3.99 M/uL (4.33-5.43)
--- NOTE | 2021-04-23 07:02 | RAD REPORT ---
EXAM DESCRIPTION: Gabriel Single View04/23/2021 5:58 am CLINICAL HISTORY: Chest pain COMPARISON: April 22 2021 FINDINGS: No significant change in the bilateral pulmonary opacities The heart is normal size IMPRESSION: No significant change in the bilateral pulmonary opacities probably pneumonia
[2021-04-23 07:19] LABS: ALT/SGPT 66 U/L (12-78); AST/SGOT 24 U/L (15-37); Albumin 2.5 g/dL (3.4-5.0); Alkaline Phosphatase 53 U/L (45-117); BUN Blood Urea Nitrogen 13 mg/dL (7-18); Bicarbonate 39 mmol/L (21-32); Bilirubin Total 0.2 mg/dL (0.2-1.0); Glucose Level 131 mg/dL (74-106); Magnesium 2.3 mg/dL (1.8-2.4); NT PRO-BNP 452 pg/mL (<125); Phosphorus 4.5 mg/dL (2.5-4.9); Potassium 4.3 mmol/L (3.5-5.1); Protein, Total 6.5 g/dL (6.4-8.2); Sodium Level 142 mmol/L (136-145)
[2021-04-23] MEDS: INSULIN -REGULAR HUMAN 50 UNIT/0.5 ML ML SQ SCH ×2 (07:30→11:30)
[2021-04-23] MEDS: LORAZEPAM 0.5 MG TABLET PO SCH (09:00)
[2021-04-23] MEDS: BENZTROPINE 1 MG TAB PO SCH (09:00)
[2021-04-23] MEDS: CITALOPRAM 10 MG TABLET PO SCH ×2 (09:00→09:03)
[2021-04-23] MEDS: RISPERIDONE 1 MG TABLET PO SCH (09:01)
[2021-04-23] MEDS: DOXYCYCLINE 100 MG CAP PO SCH (09:01)
[2021-04-23] MEDS: FOLIC ACID 1 MG TABLET FT SCH (09:03)
[2021-04-23] MEDS: carvediloL 3.125 MG TAB PO SCH (09:03)
[2021-04-23] MEDS: acetaZOLAMIDE 250 MG TAB PO SCH (09:03)
[2021-04-23] MEDS: JEVITY 1.5 CAL LIQUID 1,000 ML BOT FT SCH ×2 (09:04→14:03)
[2021-04-23] MEDS ORDERED: LORAZEPAM 1 MG TABLET PO PRN (10:13)
[2021-04-23 13:09] VITALS: BP 110/66; TEMP 97
[2021-04-23 15:50] VITALS: O2SAT 96
--- NOTE | 2021-05-07 14:46 | P.PN ---
Date of Service: 04/21/21 Subjective patient is continuing to improve; respiratory status is much better Review of Systems 10-point ROS is otherwise unremarkable Physical Examination - Vital Signs reviewed - Physical Exam General: Alert, In no apparent distress, Oriented x3 Respiratory: Diminished, Expiratory wheezes Cardiovascular: Regular rate/rhythm, Normal S1 S2, No murmurs Gastrointestinal: Normal bowel sounds, Soft and benign, Non-distended Musculoskeletal: No clubbing, No swelling Assessment & Plan - Problems (Diagnosis) (1) Hypercapnic respiratory failure Current Visit: Yes Status: Acute (2) Hypoxia Current Visit: Yes Status: Acute (3) Aspiration pneumonia Current Visit: No Status: Acute (4) Muscular dystrophy Current Visit: No Status: Chronic - Plan Conitnue with POC as mentioned below: 1. Continue with IV antibiotics 2. Awaiting culture 3. Repeat chest x-ray 4. Scopolamine patch for secretions 5. Appreciate pulmonary consultation 6. Continue with nebs 7. O2 per protocol 8. Supportive care 9. Repeat labs including CBC and renal function in a.m. 10. GI and DVT prophylaxis
--- NOTE | 2021-05-07 14:47 | P.PN ---
Date of Service: 04/22/21 Subjective Patient continues to improve with no new complaints Review of Systems 10-point ROS is otherwise unremarkable Physical Examination - Vital Signs reviewed - Physical Exam General: Alert, In no apparent distress, Oriented x3 Respiratory: Diminished, Expiratory wheezes Cardiovascular: Regular rate/rhythm, Normal S1 S2, No murmurs Gastrointestinal: Normal bowel sounds, Soft and benign, Non-distended Musculoskeletal: No clubbing, No swelling Assessment & Plan - Problems (Diagnosis) (1) Hypercapnic respiratory failure Current Visit: Yes Status: Acute (2) Hypoxia Current Visit: Yes Status: Acute (3) Aspiration pneumonia Current Visit: No Status: Acute (4) Muscular dystrophy Current Visit: No Status: Chronic - Plan Conitnue with POC as mentioned below: 1. Continue with IV antibiotics 2. Awaiting culture results 3. Repeat chest x-ray 4. Scopolamine patch for secretions 5. Appreciate pulmonary consultation 6. Continue with nebs & steroids 7. O2 per protocol 8. Repeat labs including CBC and renal function in a.m. 9. GI and DVT prophylaxis
--- NOTE | 2021-05-07 14:49 | P.DS ---
Discharge Date: 04/23/21 Disposition: DC HOME/HOME HEALTH CARE Discharge Condition: GOOD Reason for Admission: pneumonia - Problems (1) Hypercapnic respiratory failure Status: Acute (2) Hypoxia Status: Acute (3) Aspiration pneumonia Status: Acute (4) Muscular dystrophy Status: Chronic Brief History of Present Illness: This is a 40-year-old male patient with a history of muscular dystrophy, cardiomyopathy, anxiety, bipolar disorder that presented to the emergency room with hypoxia. 's caregiver stated that he had been having an increased sputum production. Was diagnosed with pneumonia this past January and been treated for it. Since having the previous pneumonia he has had sputum production but his plant safety leader recently prescribed a chest compression device to help with him. Since then has had increased production. Caregiver aureliano stated that he was choking on secretions because there was so much. Had checked his pulse oximetry and found that it was in the 60s. EMS was called at that time to bring patient for further evaluation. Patient was worked up in the emergency room and found to have a left base infiltrate. White cell count was 8.2, hemoglobin 10.3, hematocrit 32.1, platelet 286. Patient sodium was 137, potassium 4.2, chloride 96, bicarb 39, BUN 13, creatinine 0.14, glucose 208. Patient's BNP 285, troponin of 0.08. Patient had a ABG completed that showed a pH of 7.30 PCO2 86.3. Patient was given breathing treatments and put on antibiotics and oxygen therapy. Patient feeling markedly better at this time. Medicine consult at that time for further evaluation. Hospital Course: Patient has done well during hospitalization. Patient is clinically doing better and will DC with family and nebs, steroids, and antibiotics Vital Signs/Physical Exam: Temp Pulse Resp BP Pulse Ox 97.0 F 106 H 18 110/66 97 04/23/21 12:00 04/23/21 12:00 04/23/21 12:00 04/23/21 12:00 04/23/21 12:00 General: Alert, In no apparent distress, Oriented x3 Laboratory Data at Discharge: WBC 7.70 K/uL (4.3-10.9) D 04/23/21 06:32 Hgb 11.0 g/dL (13.6-17.9) L 04/23/21 06:32 Hct 34.3 % (39.6-49.0) L 04/23/21 06:32 Plt Count 307 K/uL (152-406) 04/23/21 06:32 PT 14.7 SECONDS (9.5-12.5) H 04/19/21 04:30 INR 1.28 04/19/21 04:30 Sodium 142 mmol/L (136-145) 04/23/21 06:32 Potassium 4.3 mmol/L (3.5-5.1) 04/23/21 06:32 BUN 13 mg/dL (7-18) 04/23/21 06:32 Creatinine < 0.15 mg/dL (0.55-1.3) L 04/23/21 06:32 Glucose 131 mg/dL (74-106) H 04/23/21 06:32 Phosphorus 4.5 mg/dL (2.5-4.9) 04/23/21 06:32 Magnesium 2.3 mg/dL (1.8-2.4) 04/23/21 06:32 Total Bilirubin 0.2 mg/dL (0.2-1.0) 04/23/21 06:32 AST 24 U/L (15-37) 04/23/21 06:32 ALT 66 U/L (12-78) 04/23/21 06:32 Alkaline Phosphatase 53 U/L (45-117) 04/23/21 06:32 Troponin I 0.10 ng/mL (0.0-0.045) H 04/19/21 12:24 Home Medications: Benztropine Mesylate [Cogentin] 2 mg PO BID 02/05/21 Citalopram [Celexa*] 20 mg PO DAILY 02/05/21 LORazepam [Ativan*] 1 mg PO PRN PRN 02/05/21 risperiDONE [Risperdal] 4 mg PO BID 02/05/21 Folic Acid 1 mg FT DAILY #90 tablet 02/16/21 Jevity 1.5 Oracio Liquid 360 ml FT TID #90 bot 02/16/21 Carvedilol [Coreg] 1 tab PO BID 04/19/21 Albuterol Neb [Proventil 0.083% Neb Soln] 2.5 mg NEB Q4H PRN #60 vial.neb 04/22/21 Amoxicillin/Potassium Clav [Augmentin 500-125 Tablet] 1 each PO BID #20 tablet 04/22/21 Doxycycline Hyclate 100 mg PO BID #20 tablet 04/22/21 acetaZOLAMIDE [Acetazolamide] 125 mg PO DAILY #30 tablet 04/22/21 New Medications: acetaZOLAMIDE [Acetazolamide] 125 mg PO DAILY #30 tablet Amoxicillin/Potassium Clav [Augmentin 500-125 Tablet] 1 each PO BID #20 tablet Doxycycline Hyclate 100 mg PO BID #20 tablet Albuterol Neb [Proventil 0.083% Neb Soln] 2.5 mg NEB Q4H PRN #60 vial.neb PRN Reason: Wheezing Physician Discharge Instructions: OK TO DC IV AND DC HOME FOLLOW-UP WITH PRIMARY CARE PROVIDER IN 1-2 WEEKS FOLLOW-UP WITH PULMONARY IN 1-2 WEEKS RETURN TO THE ER IF symptoms worsens CALL or TEXT DR. CANO AT [phone] IF ANY QUESTIONS REGARDING HOSPITAL STAY. PLEASE CALL THE FLOOR AT [phone] IF ANY MEDICATION OR NURSING QUESTIONS. YOUR PRESCRIPTIONS WERE SENT TO [facility] CALL [facility] ([phone]) IF YOU HAVE ANY QUESTIONS REGARDING HOME OXYGEN. Diet: Regular Activity: Ad amanda Followup: Unknown,U [Primary Care Provider] - Time spent managing pt's care (in minutes): 35
== END 2021-04-23 17:09 | disposition home health service (06) | DRG 177 ==
LOC: ER 04:06 → ERHOLD 05:34 → 2ND 07:45
PROVIDERS: ADMIT Internal Medicine; ATTEND Internal Medicine
DX: J69.0 Pneumonitis due to inhalation of food and vomit (principal); J96.02 Acute respiratory failure with hypercapnia; J96.01 Acute respiratory failure with hypoxia; G71.00 Muscular dystrophy, unspecified; F41.9 Anxiety disorder, unspecified; F31.9 Bipolar disorder, unspecified; Z20.822 Contact with and (suspected) exposure to COVID-19
CPT/HCPCS: 36415; 71045; 80048; 80053; 80076; 82805; 82947; 83036; 83605; 83735; 83880; 84100; 84145; 84484; 85025; 85610; 87040; 87070; 87077; 87186; 87205; 87804; 93005; 94760; 96365; 96375; 99285; J0456; J0696; J2543; J7030; J7050; U0003

== ENCOUNTER 2021-04-29 16:20 | Emergency (ER) | payer OTHER ==
--- NOTE | 2021-04-29 18:24 | ER ---
Nurse's Notes [facility] Name: Carter Zapata Age: 41 yrs Sex: Male : 1980 Arrival Date: 04/29/2021 Time: 16:21 Bed 15 Private MD: Marcello Alejandra Diagnosis: Encounter for attention to gastrostomy Presentation: 04/29 16:46 Chief complaint: Parent and/or Guardian states: Accidently pulled peg tube out when kg turning around 15:00. Coronavirus screen: Vaccine status: Patient reports receiving the 2nd dose of the covid vaccine. Date November 24, 2020 Moderna Patient reports receiving the 1st dose of the Covid vaccine. Date October 27, 2020 Modern At this time, the client does not indicate any symptoms associated with coronavirus-19. Ebola Screen: Patient negative for fever greater than or equal to 101.5 degrees Fahrenheit, and additional compatible Ebola Virus Disease symptoms Patient denies exposure to infectious person. Patient denies travel to an Ebola-affected area in the 21 days before illness onset. Initial Sepsis Screen: Does the patient meet any 2 criteria? No. Patient's initial sepsis screen is negative. Does the patient have a suspected source of infection? No. Patient's initial sepsis screen is negative. Risk Assessment: Do you want to hurt yourself or someone else? Patient reports no desire to harm self or others. Onset of symptoms was April 29, 2021 at 15:00. 16:46 Method Of Arrival: Wheelchair kg 16:46 Acuity: JOSÉ MIGUEL 4 kg Triage Assessment: 16:49 General: Appears in no apparent distress. Behavior is calm, cooperative, appropriate kg for age, quiet. Pain: Denies pain. Historical: - Allergies: 16:50 No Known Allergies; kg - Home Meds: 16:50 Celexa Oral [Active]; risperidone Oral [Active]; peridex oral rinse [Active]; Docusate kg Sodium Oral [Active]; Coreg 3.125 mg oral tab [Active]; Cogentin Oral [Active]; Ativan Oral [Active]; coconut oil Oral [Active]; Amoxil Oral [Active]; doxycycline hyclate oral [Active]; - PMHx: 16:50 Anxiety; Bipolar disorder; cardiomyopathy; muscular dystrophy; Intermitten explosive kg dissorder; - PSHx: 16:50 PEG; Muscle Biopsy; kg - Immunization history:: Adult Immunizations not up to date, Client reports receiving the 2nd dose of the Covid vaccine, Date received: November 24, 2020 Client reports receiving the 1st dose of the Covid vaccine, October 27, 2020. - Social history:: Smoking status: Patient denies any tobacco usage or history of. Screenin:49 Abuse screen: Denies threats or abuse. Denies injuries from another. Nutritional kg screening: No deficits noted. Tuberculosis screening: No symptoms or risk factors identified. Fall Risk None identified. Vital Signs: 16:46 BP 108 / 55; Pulse 116; Resp 20; Temp 98.6(TE); Pulse Ox 100% on R/A; Weight 52.16 kg kg (R); Height 5 ft. 3 in. (160.02 cm) (R); Pain 0/10; 17:06 BP 108 / 55; Pulse 116; Resp 18; Temp 98.6; Pulse Ox 100% ; aj2 16:46 Body Mass Index 20.37 (52.16 kg, 160.02 cm) kg ED Course: 16:21 Patient arrived in ED. mr 16:22 Marcello Alejandra DO is Private Physician. mr 16:49 Triage completed. kg 16:49 Patient has correct armband on for positive identification. kg 16:49 Arm band placed on right wrist. kg 16:49 No provider procedures requiring assistance completed. kg 17:00 Dru Gandhi PA is PHCP. jr8 17:00 Marvin Reid MD is Attending Physician. jr8 17:06 Whitney Holt is Primary Nurse. aj2 17:12 No apparent distress. Resting quietly. resting quietly in home wheelchair. aj2 18:15 ENTEROSTOMY TUBE CHECK W/CONTR In Process Unspecified. EDMS 18:23 Marcello Alejandra DO is Referral Physician. jr8 Administered Medications: No medications were administered Outcome: 18:24 Discharge ordered by . jr8 18:34 Discharged to home with family. aj2 18:34 Condition: stable 18:34 Discharge instructions given to patient, Instructed on discharge instructions, follow up and referral plans. Demonstrated understanding of instructions, follow-up care. 18:36 Patient left the ED. aj2 Signatures: Dispatcher [employer] EDCA Alexus Gallegos mr Dru Gandhi PA PA jr8 Radha Holliday, RN RN Whitney English2
--- NOTE | 2021-04-29 18:25 | EDPHYS ---
Physician Documentation [facility] Name: Carter Zapata Age: 41 yrs Sex: Male : 1980 Arrival Date: 04/29/2021 Time: 16:21 Bed 15 Private MD: Justyn [facility] ED Physician Marvin Reid HPI: 04/29 18:10 This 41 yrs old Male presents to ER via Wheelchair with complaints of Pulled jr8 out Peg tube. 18:10 Onset: The symptoms/episode began/occurred acutely, today. Associated signs and jr8 symptoms: The patient has no apparent associated signs or symptoms. The patient has not experienced similar symptoms in the past. The patient has not recently seen a physician. River patient stated that she accidentally pulled patient's gastrostomy tube. Needed replaced if possible. Denies any other complaints at this time.. Historical: - Allergies: 16:50 No Known Allergies; kg - Home Meds: 16:50 Celexa Oral [Active]; risperidone Oral [Active]; peridex oral rinse [Active]; Docusate kg Sodium Oral [Active]; Coreg 3.125 mg oral tab [Active]; Cogentin Oral [Active]; Ativan Oral [Active]; coconut oil Oral [Active]; Amoxil Oral [Active]; doxycycline hyclate oral [Active]; - PMHx: 16:50 Anxiety; Bipolar disorder; cardiomyopathy; muscular dystrophy; Intermitten explosive kg dissorder; - PSHx: 16:50 PEG; Muscle Biopsy; kg - Immunization history:: Adult Immunizations not up to date, Client reports receiving the 2nd dose of the Covid vaccine, Date received: November 24, 2020 [facility] Client reports receiving the 1st dose of the Covid vaccine, October 27, 2020 [facility]. - Social history:: Smoking status: Patient denies any tobacco usage or history of. ROS: 18:10 Eyes: Negative for injury, pain, redness, and discharge, ENT: Negative for injury, jr8 pain, and discharge, Neck: Negative for injury, pain, and swelling, Cardiovascular: Negative for chest pain, palpitations, and edema, Respiratory: Negative for shortness of breath, cough, wheezing, and pleuritic chest pain, Abdomen/GI: Negative for abdominal pain, nausea, vomiting, diarrhea, and constipation, Back: Negative for injury and pain, MS/Extremity: Negative for injury and deformity, Skin: Negative for injury, rash, and discoloration, Neuro: Negative for headache, weakness, numbness, tingling, and seizure. Exam: 18:10 Constitutional: This is a well developed, well nourished patient who is awake, alert, jr8 and in no acute distress. Cardiovascular: Regular rate and rhythm with a normal S1 and S2. No gallops, murmurs, or rubs. Normal PMI, no JVD. No pulse deficits. Respiratory: Lungs have equal breath sounds bilaterally, clear to auscultation and percussion. No rales, rhonchi or wheezes noted. No increased work of breathing, no retractions or nasal flaring. Abdomen/GI: Soft, non-tender, with normal bowel sounds. No distension or tympany. No guarding or rebound. No evidence of tenderness throughout. Gastrostomy site noted left upper quadrant without acute findings or discharge Skin: Warm, dry with normal turgor. Normal color with no rashes, no lesions, and no evidence of cellulitis. MS/ Extremity: Pulses equal, no cyanosis. Neurovascular intact. Full, normal range of motion. Neuro: Awake and alert, GCS 15, oriented to person, place, time, and situation. Motor strength 3/5 in all extremities. Sensory grossly intact. Vital Signs: 16:46 BP 108 / 55; Pulse 116; Resp 20; Temp 98.6(TE); Pulse Ox 100% on R/A; Weight 52.16 kg kg (R); Height 5 ft. 3 in. (160.02 cm) (R); Pain 0/10; 17:06 BP 108 / 55; Pulse 116; Resp 18; Temp 98.6; Pulse Ox 100% ; aj2 16:46 Body Mass Index 20.37 (52.16 kg, 160.02 cm) kg MDM: 17:02 Patient medically screened. jr8 18:10 Data reviewed: vital signs, nurses notes, radiologic studies, plain films. Data jr8 interpreted: Pulse oximetry: on room air is 100 %. Interpretation: normal. Counseling: I had a detailed discussion with the patient and/or guardian regarding: the historical points, exam findings, and any diagnostic results supporting the discharge/admit diagnosis, radiology results, the need for outpatient follow up, a family practitioner, to return to the emergency department if symptoms worsen or persist or if there are any questions or concerns that arise at home. 18:23 ED course: Replace gastrostomy tube. Gastrografin was injected and appears to be in jr8 proper positioning with Gastrografin filling the rugated the stomach. Will send home to follow-up with primary care provider. No other complications seen at this time.. 04/29 17:56 Order name: ENTEROSTOMY TUBE CHECK W/CONTR; Complete Time: 18:35 EDMS Administered Medications: No medications were administered Disposition: 04/30 11:19 Co-signature as Attending Physician, Marvin Reid MD I agree with the assessment and kdr plan of care. Disposition Summary: 04/29/21 18:24 Discharge Ordered Location: Home jr8 Problem: new jr8 Symptoms: are resolved jr8 Condition: Stable jr8 Diagnosis - Encounter for attention to gastrostomy jr8 Followup: jr8 - With: Marcello Alejandra, DO - When: As needed - Reason: Recheck today's complaints, Continuance of care, Re-evaluation by your physician Discharge Instructions: - Discharge Summary Sheet jr8 - Gastrostomy Tube Replacement jr8 - Gastrostomy Tube Home Guide, Adult jr8 Forms: - Medication Reconciliation Form jr8 - Thank You Letter jr8 - Antibiotic Education jr8 - Prescription Opioid Use jr8 Signatures: Dispatcher [employer] EDTN Marvin Reid MD MD [facility] Dru Gandhi PA PA jr8 Radha Holliday, RN RN kg Corrections: (The following items were deleted from the chart) 04/29 17:56 17:41 Abdomen 1 View ([id number])+[email or web address] ordered. [facility] EDMS
--- NOTE | 2021-04-29 18:33 | RAD REPORT ---
EXAM DESCRIPTION: RAD - ENTEROSTOMY TUBE CHECK W/CONTR - 04/29/2021 6:15 pm CLINICAL HISTORY: gastrostomy placement Peg tube placement COMPARISON: Barium Swallow Modified dated 02/16/2021 FINDINGS: Two abdominal radiographs are submitted. No fluoroscopy was performed. Contrast was infused into the existing PEG tube. Contrast is seen filling the stomach. No leakage is evident. IMPRESSION: Expected location of the PEG tube confirmed.
[2021-04-29 18:41] VITALS: BP 108/55; TEMP 98.6; O2SAT 100
== END 2021-04-29 18:36 | disposition home or self-care (01) ==
LOC: ER 16:20
DX: K94.29 Other complications of gastrostomy (principal)
CPT/HCPCS: 49465; 99283

== ENCOUNTER 2021-04-30 23:44 | Emergency (ER) | payer OTHER ==
--- NOTE | 2021-05-01 02:02 | EDPHYS ---
Physician Documentation [facility] Name: Carter Zapata Age: 41 yrs Sex: Male : 1980 Arrival Date: 04/30/2021 Time: 23:46 Bed 7 Private MD: ED Physician Preeti Leger HPI: 05/01 01:05 This 41 yrs old Male presents to ER via Wheelchair with complaints of PEG ma2 TUBE DISLODGED. 01:05 Onset: The symptoms/episode began/occurred suddenly, 1 hour(s) ago. Associated signs ma2 and symptoms: Pertinent negatives: blood in stools, diarrhea, fever, hematuria. Modifying factors: The symptoms are alleviated by nothing, the symptoms are aggravated by. Severity of pain: At its worst the pain was moderate in the emergency department the pain is unchanged. The patient has experienced similar episodes in the past. Historical: - Allergies: 00:08 No Known Allergies; sj1 - Immunization history:: Adult Immunizations up to date, Client reports receiving the 2nd dose of the Covid vaccine, Client reports receiving the 1st dose of the Covid vaccine. - Social history:: Smoking status: Patient denies any tobacco usage or history of. - Family history:: not pertinent. ROS: 01:05 Constitutional: Negative for fever, chills, and weight loss. ma2 01:05 All other systems are negative. Exam: 01:05 Constitutional: This is a well developed, well nourished patient who is awake, alert, ma2 and in no acute distress. Chest/axilla: Normal chest wall appearance and motion. Nontender with no deformity. No lesions are appreciated. Cardiovascular: Regular rate and rhythm with a normal S1 and S2. No gallops, murmurs, or rubs. Normal PMI, no JVD. No pulse deficits. Respiratory: Lungs have equal breath sounds bilaterally, clear to auscultation and percussion. No rales, rhonchi or wheezes noted. No increased work of breathing, no retractions or nasal flaring. Abdomen/GI: pig tube area is dry non tender in good order,no skin issues, tube is dislodged, otherwise Soft, non-tender, with normal bowel sounds. No distension or tympany. No guarding or rebound. No evidence of tenderness throughout. 01:05 Neck: Trachea midline, no thyromegaly or masses palpated, and no cervical ma2 lymphadenopathy. Supple, full range of motion without nuchal rigidity, or vertebral point tenderness. No Meningismus. Back: No spinal tenderness. No costovertebral tenderness. Full range of motion. Vital Signs: 00:06 BP 114 / 79 LA Sitting (auto/reg); Pulse 102; Resp 19; Temp 98.8(O); Pulse Ox 100% on sj1 R/A; Weight 52.16 kg (R); Height 5 ft. 3 in. (160.02 cm); Pain 0/10; 02:05 BP 112 / 68; Pulse 98; Resp 18; Pulse Ox 99% ; ea 00:06 Body Mass Index 20.37 (52.16 kg, 160.02 cm) 1 Procedures: 01:05 G-tube placement: a 18 Romanian catheter was placed, by the ED physician, Preeti Leger MD. MDM: 00:51 Patient medically screened. ma2 01:05 Differential diagnosis: gastritis, gastroesophageal reflux disease, Irritable bowel ma2 syndrome, non-specific abd pain, pegtube dislodges, i replaced it in good condition. 01:59 Data reviewed: vital signs, nurses notes. Counseling: I had a detailed discussion with ma2 the patient and/or guardian regarding: the historical points, exam findings, and any diagnostic results supporting the discharge/admit diagnosis, the presence of at least one elevated blood pressure reading (>120/80) during this emergency department visit, the need for outpatient follow up. Response to treatment: the patient's symptoms have markedly improved after treatment. 05/01 01:05 Order name: Abdomen 1 View (KUB) XRAY: with gastroview ma2 Administered Medications: 01:58 Drug: Gastrografin (diatrizoate meglumine \T\ sodium) Liquid 30 ml Route: PO; ea 02:06 Follow up: Response: No adverse reaction ea Disposition Summary: 05/01/21 02:01 Discharge Ordered Location: Home ma2 Condition: Stable ma2 Diagnosis - Encounter for screening for other disorder - displacement of gastrostomy tube ma2 Followup: ma2 - With: Private Physician - When: Tomorrow - Reason: Continuance of care Discharge Instructions: - Discharge Summary Sheet ma2 - Gastrostomy Tube Home Guide, Adult ma2 Forms: - Medication Reconciliation Form ma2 - Thank You Letter ma2 - Antibiotic Education ma2 - Prescription Opioid Use ma2 Signatures: Dispatcher [employer] Gin Busby RN Preeti Membreno ea, MD MD wi2 Katelynn Kulkarni RN RN [facility] Corrections: (The following items were deleted from the chart) 00:08 00:08 PMHx: muscular dystrophy; [place] [id number] 00:08 00:08 PMHx: Anxiety; [place] [id number] 00:08 00:08 PMHx: Bipolar disorder; [place] [address] 00: 00:08 PMHx: cardiomyopathy; [place] [address] 00: 00:08 PMHx: Intermitten explosive dissorder; [place] [address] 00:08 00:08 PSHx: PEG; [place] [address] 00:08 00:08 PSHx: Muscle Biopsy; [place] [id number]
--- NOTE | 2021-05-01 02:02 | ER ---
Nurse's Notes [facility] Name: Carter Zapata Age: 41 yrs Sex: Male : 1980 Arrival Date: 04/30/2021 Time: 23:46 Bed 7 Private MD: Diagnosis: Encounter for screening for other disorder-displacement of gastrostomy tube Presentation: 05/01 00:06 Chief complaint: Patient states: peg tube dislodged approx 30 mins ago. Coronavirus sj1 screen: Vaccine status: Patient reports receiving the 2nd dose of the covid vaccine. Patient reports receiving the 1st dose of the Covid vaccine. Ebola Screen: Patient negative for fever greater than or equal to 101.5 degrees Fahrenheit, and additional compatible Ebola Virus Disease symptoms Patient denies exposure to infectious person. Patient denies travel to an Ebola-affected area in the 21 days before illness onset. No symptoms or risks identified at this time. Initial Sepsis Screen: Does the patient meet any 2 criteria? No. Patient's initial sepsis screen is negative. Does the patient have a suspected source of infection? No. Patient's initial sepsis screen is negative. Risk Assessment: Do you want to hurt yourself or someone else? Patient reports no desire to harm self or others. Onset of symptoms was May 01, 2021. 00:06 Method Of Arrival: Wheelchair sj1 00:06 Acuity: JOSÉ MIGUEL 4 sj1 Triage Assessment: 00:08 General: Appears in no apparent distress. Behavior is calm, cooperative. Pain: Denies sj1 pain. EENT: No deficits noted. Neuro: No deficits noted. Cardiovascular: No deficits noted. Respiratory: No deficits noted. GI: Parent/caregiver reports the patient having dislodged peg tube. : No deficits noted. Historical: - Allergies: 00:08 No Known Allergies; sj1 - Immunization history:: Adult Immunizations up to date, Client reports receiving the 2nd dose of the Covid vaccine, Client reports receiving the 1st dose of the Covid vaccine. - Social history:: Smoking status: Patient denies any tobacco usage or history of. - Family history:: not pertinent. Screenin:09 Abuse screen: Denies threats or abuse. Denies injuries from another. Nutritional sj1 screening: No deficits noted. Tuberculosis screening: No symptoms or risk factors identified. Fall Risk. Assessment: 00:45 General: Appears in no apparent distress. Behavior is calm, cooperative. Pain: Unable ea to use pain scale. FLACC scale score is 0 out of 10. Neuro: Level of Consciousness is awake, alert. Cardiovascular: Patient's skin is warm and dry. GI: family reports pt peg tube came out about an hour ago. Derm: Skin is pink, warm \T\ dry. 01:02 Reassessment: Provider at beside reinserting peg tube, pt tolerating well. ea 02:03 Reassessment: Patient and/or family updated on plan of care and expected duration. Pain ea level reassessed. Pt alert, respirations even and unlabored. Discharge instruction given to pt's family, verbalized the understanding of instruction. Pt left ED via wheelchair per family, pt tolerating well. Vital Signs: 00:06 BP 114 / 79 LA Sitting (auto/reg); Pulse 102; Resp 19; Temp 98.8(O); Pulse Ox 100% on sj1 R/A; Weight 52.16 kg (R); Height 5 ft. 3 in. (160.02 cm); Pain 0/10; 02:05 BP 112 / 68; Pulse 98; Resp 18; Pulse Ox 99% ; ea 00:06 Body Mass Index 20.37 (52.16 kg, 160.02 cm) rust ED Course: 04/30 23:46 Patient arrived in ED. 10 00:07 Triage completed. sj1 00:08 Arm band placed on right wrist. EKG completed in triage. Results shown to MD. sj1 00:09 Patient has correct armband on for positive identification. sj1 00:47 Preeti Leger MD is Attending Physician. ma2 01:02 Gin Jordan, BEENA is Primary Nurse. ea 01:02 No provider procedures requiring assistance completed. Patient did not have IV access ea during this emergency room visit. 01:58 Abdomen 1 View (KUB) XRAY: with gastroview In Process Unspecified. EDMS Administered Medications: 01:58 Drug: Gastrografin (diatrizoate meglumine \T\ sodium) Liquid 30 ml Route: PO; ea 02:06 Follow up: Response: No adverse reaction ea Outcome: 02:01 Discharge ordered by . ma2 02:01 Discharged to home via wheelchair, with family. ea 02:01 Condition: stable 02:01 Discharge instructions given to family, Instructed on discharge instructions, follow up and referral plans. Demonstrated understanding of instructions. 02:06 Patient left the ED. young Signatures: Dispatcher [employer] Gin Busby, RN RN Preeti Calvin MD MD ma2 Taylor Preston Sade, RN RN sj1 Corrections: (The following items were deleted from the chart) 00:08 00:08 PMHx: muscular dystrophy; 1 sj1 00:08 00:08 PMHx: Anxiety; sj1 sj1 00:08 00:08 PMHx: Bipolar disorder; sj1 sj1 00:08 00:08 PMHx: cardiomyopathy; 1 sj1 00:08 00:08 PMHx: Intermitten explosive dissorder; 1 sj1 00:08 00:08 PSHx: PEG; 1 sj1 00:08 00:08 PSHx: Muscle Biopsy; 1 sj1
[2021-05-01 02:15] VITALS: TEMP 98.8
[2021-05-01 02:16] VITALS: BP 112/68; O2SAT 99
--- NOTE | 2021-05-01 07:21 | RAD REPORT ---
EXAM DESCRIPTION: RAD - Abdomen 1 View (KUB) - 05/01/2021 1:58 am CLINICAL HISTORY: peg tube insertion, with gastroview COMPARISON: No comparisons FINDINGS: Nonobstructive bowel gas pattern. No acute osseous abnormality.Visualized lungs are unrema rkable.No abnormal calcifications. Contrast administered into the patient's gastrostomy tube demonstr ates opacification of the stomach. IMPRESSION: Nonobstructive bowel gas pattern. Gastrostomy tube tip within the stomach, confirmed wit h contrast.
== END 2021-05-01 02:06 | disposition home or self-care (01) ==
LOC: ER 23:44
DX: K94.29 Other complications of gastrostomy (principal)
CPT/HCPCS: 74018; 99283

== ENCOUNTER 2021-05-27 18:51 | Inpatient (IN) | payer OTHER ==
--- NOTE | 2021-05-27 19:40 | RAD REPORT ---
EXAM DESCRIPTION: RAD - Chest Single View - 05/27/2021 7:28 pm CLINICAL HISTORY: COPD Chest pain. COMPARISON: Chest Pa And Lat (2 Views) dated 05/05/2021; Abdomen 1 View (KUB) dated 05/01/2021; Chest Single View dated 04/23/2021; Chest Single View dated 04/22/2021 FINDINGS: Portable technique limits examination quality. A large area of lung consolidation is present in the left lung base, a small or consolidation is pres ent in the right lung base, most compatible with pneumonia. The heart is normal in size. No displaced fractures. IMPRESSION: Bibasilar lung infiltrates compatible with pneumonia, significantly greater on the left.
[2021-05-27 20:23] LABS: Absolute Lymphocytes (CBC) 0.4 K/uL (0.7-4.9); Basophils % 0.1 % (0-1.3); Lymphocytes % 5.9 % (15.3-44.8); RBC Red Blood Cell Count 4.37 M/uL (4.33-5.43)
[2021-05-27 20:26] LABS: Blood Morphology Comment NOT SEEN (NOT SEEN); Platelet Estimate ADEQ; White Blood Cell Scan OK (OK)
[2021-05-27] MEDS ORDERED: ACETAMINOPHEN 325 MG TABLET ONE (20:33)
[2021-05-27] MEDS ORDERED: NA CHLORIDE 0.9% 1,000 ML ONE (20:33)
--- NOTE | 2021-05-27 20:33 | RAD REPORT ---
EXAM DESCRIPTION: CT - Head Brain Wo Cont - 05/27/2021 8:13 pm CLINICAL HISTORY: weakness right upper extremity Headache, drowsiness CVA symptomology COMPARISON: <Comparisons> TECHNIQUE: All CT scans are performed using dose optimization technique as appropriate and may inclu de automated exposure control or mA/KV adjustment according to patient size. FINDINGS: Mild motion degradation is present, limiting study. No intracranial hemorrhage, hydrocepha shin or extra-axial fluid collection.No areas of brain edema or evidence of midline shift. The paranasal sinuses and mastoids are clear. The calvarium is intact. IMPRESSION: No acute intracranial abnormality.
--- NOTE | 2021-05-27 20:35 | RAD REPORT ---
EXAM DESCRIPTION: CT - Thorax Wo Con CLINICAL HISTORY: Chest pain SOB COMPARISON: Chest For Pe Angio dated 02/06/2021 FINDINGS: Large area of lung consolidation is seen left lower lobe lingula. This is compatible with pneumonia. Mild infiltrate is present in the right lung base as well. No pleural thickening or pleura l effusion. No pneumothorax. No axillary, mediastinal or hilar adenopathy. No concerning bony finding. No gross upper abdominal finding. All CT scans are performed using dose optimization technique as appropriate and may include automated exposure control or mA/KV adjustment according to patient size. IMPRESSION: Large area of lung consolidation in the left lower lobe is most compatible with pneumoni a.
[2021-05-27 20:45] LABS: ALT/SGPT 150 U/L (12-78); AST/SGOT 171 U/L (15-37); Albumin 2.9 g/dL (3.4-5.0); Alkaline Phosphatase 65 U/L (45-117); Amylase 26 U/L (25-115); BUN Blood Urea Nitrogen 12 mg/dL (7-18); Bicarbonate 33 mmol/L (21-32); Bilirubin Direct 0.1 mg/dL (0-0.2); Bilirubin Total 0.3 mg/dL (0.2-1.0); Glucose Level 165 mg/dL (74-106); Lipase 16 U/L (73-393); Potassium 3.2 mmol/L (3.5-5.1); Protein, Total 7.1 g/dL (6.4-8.2); Sodium Level 147 mmol/L (136-145); Troponin (Emerg Dept Use Only) 0.08 ng/mL (0.0-0.045)
[2021-05-27 20:49] LABS: CKMB Creatine Kinase MB 22.8 ng/mL (1.0-3.6); Creatine Phosphokinase 2739 U/L (39-308)
--- NOTE | 2021-05-27 21:31 | ER ---
Nurse's Notes [facility] Name: Carter Zapata Age: 41 yrs Sex: Male : 1980 Arrival Date: 05/27/2021 Time: 18:59 Bed 25 Private MD: Diagnosis: Aspiration pneumonia. Elevated Troponin. Weakness right upper extremity Presentation: 05/27 19:00 Chief complaint: Parent and/or Guardian states: he was not breathing good and i called tw2 Dr. Hand and he told me to keep doing his breathing treatments and his cupping exercises but its just gotten worse and now he has fever this afternoon. he is on 5 L. Coronavirus screen: difficulty breathing, fever, Client presents with at least one sign or symptom that may indicate coronavirus-19. Standard/surgical mask placed on the client. Provider contacted for isolation considerations. Ebola Screen: Patient denies travel to an Ebola-affected area in the 21 days before illness onset. Initial Sepsis Screen: Does the patient meet any 2 criteria? RR > 20 per min. HR > 90 bpm. Does the patient have a suspected source of infection? No. Patient's initial sepsis screen is negative. 19:00 Method Of Arrival: Wheelchair tw2 19:01 Risk Assessment: Do you want to hurt yourself or someone else? Patient reports no tw2 desire to harm self or others. Onset of symptoms was May 27, 2021. 19:01 Acuity: JOSÉ MIGUEL 2 tw2 Triage Assessment: 19:00 General: Appears well groomed, Behavior is anxious. Respiratory: Airway is patent tw2 Respiratory effort is labored, Respiratory pattern is tachypnea. Historical: - Allergies: 19:02 No Known Allergies; tw2 - Home Meds: 19:14 Celexa Oral [Active]; Docusate Sodium Oral [Active]; Ativan Oral [Active]; coconut oil tw2 1,000 mg oral cap [Active]; peridex oral rinse [Active]; 19:24 risperidone 4 mg oral tab 1 tab 2 times per day [Active]; citalopram 20 mg tab 1 tab tw2 once daily [Active]; carvedilol 3.125 mg oral tab 1 tab 2 times per day [Active]; folic acid 1 mg Oral tab 1 tab once daily [Active]; acetazolamide 125 mg Oral tab 1 tab once daily [Active]; - PMHx: 19:02 aspiration pneumonia; tw2 19:14 Anxiety; Bipolar disorder; Limb girdle muscular dystrophy; CHF; Intermitten explosive tw2 disorder; - PSHx: 19:14 PEG; tw2 - Immunization history:: Adult Immunizations. - Social history:: Smoking status: . Screenin:26 Abuse screen: Denies threats or abuse. Nutritional screening: No deficits noted. tw2 Tuberculosis screening: No symptoms or risk factors identified. Fall Risk None identified. Ambulatory Aid- Crutches/Cane/Walker (15 pts). Assessment: 19:00 General: Appears distressed, Behavior is h/o muscular dystrophy reported per mother; cc4 mother reports suspected aspiration pneumonia; resps 30-32 \\T\\ labored; O2 intact \\T\\ 4L/NBP \\T\\ changed to NRBFM \\T\\ 100%; O2 sat 100%; CM applied \\T\\ monitoring sinus tachycardia with no ectopy noted; hypertensive; skin warm/dry; oral temp 101.2F; parents \\T\\ bedside; CRIMINAL JUDGE in \\T\\ bedside; code sepsis called per triage nurse.. Pain: Complains of pain in right hand Unable to use pain scale. Neuro: No deficits noted. Level of Consciousness is awake, alert, anxious. Oriented to person, place, situation. Cardiovascular: Heart tones S1 S2 Capillary refill < 3 seconds Patient's skin is warm and dry. Pulses are all present. Rhythm is sinus tachycardia. Respiratory: Airway is patent Respiratory effort is labored, Respiratory pattern is symmetrical, see general. GI: Abdomen is flat, non-distended, PEG tube intact intact \\T\\ clamped off \\T\\ covered with loose jennifer wrap. Bowel sounds present X 4 quads. Abd is soft and non tender X 4 quads. : No signs and/or symptoms were reported regarding the genitourinary system. Reports Mother reports patient continent. EENT: No deficits noted. No signs and/or symptoms were reported regarding the EENT system. Derm: No deficits noted. No signs and/or symptoms reported regarding the dermatologic system. Skin is intact. Musculoskeletal: Capillary refill < 3 seconds, Mother reports h/o muscular dystrophy with c/o pain of right hand since awakening 05/26/2021 with diminished use; mother reports concern of "stroke"; limited movement of all four extremities; right hand ultrasound manager present but weaker than left hand ultrasound manager. No tenderness or redness noted right hand. 21:15 Reassessment: Oral temp decreasing to 100.1F; O2 decreased to 2L/NBP per CRIMINAL JUDGE; O2 sat cc4 100%; CRIMINAL JUDGE in to draw ABG's; resps easier \\T\\ less labored; RR 24. 22:40 Reassessment: Awake/alert; NAD; temperature decreased to 98.7 F; family \\T\\ bedside. cc4 23:20 Reassessment: Patient appears in no apparent distress at this time. VSS; afebrile; med cc4 given as ordered(see orders); report telephoned to BEENA Coelho; IVPB vancomycin 1 g infusing left AC \\T\\ 125ml/hr/pump with no s/sx's of infection/infiltration noted; O2 intact \\T\\ 2 L/NBP; SR with no ectopy; Transported to room # 425 via stretcher; NAD. Vital Signs: 19:00 Pulse 130; Resp 32; Pulse Ox 87% 5 lpm ; tw2 19:00 BP 130 / 108; Pulse 98; Resp 30; Temp 101.2(O); Pulse Ox 100% on 15% Non-rebreather cc4 mask; 19:00 Weight 52.16 kg; Height 5 ft. 4 in. (162.56 cm); cc4 19:15 BP 144 / 79; Pulse 129; Resp 32; Pulse Ox 93% ; cc4 19:20 BP 141 / 98; Pulse 126; Resp 32; Pulse Ox 99% on Non-rebreather mask; cc4 19:24 Temp 101.2(O); tw2 19:30 BP 144 / 79; Pulse 129; Resp 32; Pulse Ox 93% on Non-rebreather mask; cc4 19:45 BP 148 / 86; Pulse 121; Resp 30; Pulse Ox 94% on Non-rebreather mask; cc4 20:51 BP 123 / 65; Pulse 122; Resp 28; Pulse Ox 98% on R/A; cc4 21:45 BP 114 / 60; Pulse 118; Resp 22; Temp 100.1(O); Pulse Ox 100% on R/A; cc4 22:15 BP 114 / 66; Pulse 114; Resp 35; Pulse Ox 96% ; cs9 22:40 BP 118 / 71; Pulse 120; Resp 31; Pulse Ox 96% ; cs9 23:00 BP 113 / 67; Pulse 103; Resp 24; Temp 98.7; Pulse Ox 100% on 2 lpm NC; cc4 19:00 Body Mass Index 19.74 (52.16 kg, 162.56 cm) cc4 ED Course: 18:59 Patient arrived in ED. ds1 19:00 Patient has correct armband on for positive identification. Placed in gown. Bed in low cc4 position. Call light in reach. Side rails up X2. monitoring specialist on. Pulse ox on. NIBP on. Parents \\T\\ bedside; Resps 30 \\T\\ labored; O2 intact \\T\\ 4L/NBP \\T\\ changed to NRBFM \\T\\ 100%; febrile. 19:01 Triage completed. tw2 19:02 Arm band placed on. tw2 19:28 Chest Single View XRAY In Process Unspecified. EDMS 19:30 Chapincito Mirza MD is Attending Physician. pkl 19:58 Ruth Boston, BEENA is Primary Nurse. cc4 20:13 CT Chest Wo Con In Process Unspecified. EDMS 20:13 CT Head Brain wo Cont In Process Unspecified. EDMS 20:13 CT Head Brain wo Cont Sent. cc4 20:14 Amylase, Serum Sent. cc4 20:14 LFT's Sent. cc4 20:14 Basic Metabolic Panel Sent. cc4 20:14 Blood Culture Adult (2) Sent. cc4 20:14 CBC with Diff Sent. cc4 20:14 CPK Sent. cc4 20:14 Ckmb Sent. cc4 20:14 Lactate Sent. cc4 20:14 Lipase Sent. cc4 20:14 Procalcitonin Sent. cc4 20:14 Protime (+inr) Sent. cc4 20:14 Ptt, Activated Sent. cc4 20:14 Troponin (emerg Dept Use Only) Sent. cc4 21:29 Tristen Rodriguez DO is Hospitalizing Provider. pkl 23:30 No provider procedures requiring assistance completed. cc4 23:30 IV is patent, is intact, with fluids infusing freely, cc4 Administered Medications: 20:33 Drug: NS 0.9% (30 ml/kg) 30 ml/kg Route: IV; Rate: bolus; Site: left antecubital; cc4 20:33 Drug: Tylenol 650 mg Route: PO; cc4 23:20 Follow up: Response: No adverse reaction; Temperature is decreased cc4 22:10 Drug: Zosyn (piperacillin-tazobactam) 3.375 grams Route: IVPB; Infused Over: 60 mins; cc4 Site: left antecubital; 23:10 Follow up: Response: No adverse reaction; IV Status: Completed infusion; IV Intake: cc4 100ml 22:30 Drug: Ativan (LORazepam) 0.5 mg Route: IVP; Site: left antecubital; cc4 22:40 Follow up: Response: No adverse reaction; Anxiety decreased cc4 22:30 Drug: carvedilol 3.125 mg Route: PO; cc4 22:40 Follow up: Response: No adverse reaction cc4 22:40 Drug: D5W 1000 ml Route: IV; Rate: 100 ml/hr; Site: left antecubital; cc4 22:40 Follow up: Response: No adverse reaction cc4 23:20 Follow up: IV Status: Infusion continued; IV Intake: 1000ml cc4 23:10 Drug: vancoMYCIN 1 grams Route: IVPB; Infused Over: 2 hrs; Site: left antecubital; cc4 23:20 Follow up: Response: No adverse reaction cc4 05/28 05:03 Follow up: IV Status: Infusion continued; IV Intake: 250ml cc4 05/27 23:20 Drug: RisperDAL (risperiDONE) 4 mg Route: PO; cc4 23:20 Follow up: Response: No adverse reaction cc4 Intake: 23:10 IV: 100ml; Total: 100ml. cc4 23:20 IV: 1000ml; Total: 1100ml. cc4 05/28 05:03 IV: 250ml; Total: 1350ml. cc4 Outcome: 05/27 21:31 Decision to Hospitalize by Provider. pkl 23:30 Admitted to Med/surg accompanied by tech, room 425, Report called to BEENA Coelho. cc4 23:30 Condition: improved 23:30 Instructed on the need for admit, Demonstrated understanding of instructions. 23:48 Patient left the ED. cc4 Signatures: Dispatcher [facility] EDIL Chapincito Mirza MD MD pkl Melissa Christine ds1 Shalini Kiser RN RN tw2 Ruth Boston RN RN cc4 Jeanne Johnson cs9 Corrections: (The following items were deleted from the chart) 19:02 19:00 Resp 32bpm; Pulse Ox 87% 5 lpm; 19:26 19:14 Home Meds: risperidone oral; 22:51 19:30 BP 118 / 71; Pulse 119bpm; Resp 22bpm; Pulse Ox 96% RA; Temp 98.7F; cc4 cc4 23:08 22:15 BP 114 / 66; Pulse 114bpm; Resp 35bpm; cs9 cs9
--- NOTE | 2021-05-27 21:32 | EDPHYS ---
Physician Documentation [facility] Name: Carter Zapata Age: 41 yrs Sex: Male : 1980 Arrival Date: 05/27/2021 Time: 18:59 Bed 25 Private MD: ED Physician Chapincito Mirza HPI: 05/27 19:45 This 41 yrs old Male presents to ER via Wheelchair with unknown complaint. pkl 19:45 The patient has shortness of breath at rest. Onset: The symptoms/episode began/occurred pkl today. Associated signs and symptoms: Pertinent positives: fever. The patient has experienced similar episodes in the past, a few times. Patient has muscular dystrophy, has recurrent episodes of aspiration pneumonia. Historical: - Allergies: 19:02 No Known Allergies; tw2 - Home Meds: 19:14 Celexa Oral [Active]; Docusate Sodium Oral [Active]; Ativan Oral [Active]; coconut oil tw2 1,000 mg oral cap [Active]; peridex oral rinse [Active]; 19:24 risperidone 4 mg oral tab 1 tab 2 times per day [Active]; citalopram 20 mg tab 1 tab tw2 once daily [Active]; carvedilol 3.125 mg oral tab 1 tab 2 times per day [Active]; folic acid 1 mg Oral tab 1 tab once daily [Active]; acetazolamide 125 mg Oral tab 1 tab once daily [Active]; - PMHx: 19:02 aspiration pneumonia; tw2 19:14 Anxiety; Bipolar disorder; Limb girdle muscular dystrophy; CHF; Intermitten explosive tw2 disorder; - PSHx: 19:14 PEG; tw2 - Immunization history:: Adult Immunizations. - Social history:: Smoking status: . ROS: 19:48 Eyes: Negative for injury, pain, redness, and discharge, ENT: Negative for injury, pkl pain, and discharge, Neck: Negative for injury, pain, and swelling, Cardiovascular: Negative for chest pain, palpitations, and edema. 19:48 Respiratory: Positive for shortness of breath, at rest. 19:48 Abdomen/GI: Negative for abdominal pain, nausea, vomiting, and diarrhea. 19:48 Back: Negative for injury or acute deformity, acute changes. 19:48 : Negative for urinary symptoms. 19:48 MS/extremity: Positive for weakness right upper extremity. 19:48 Skin: Negative for rash. 19:48 Neuro: Negative for altered mental status, loss of consciousness. Exam: 19:48 Head/Face: Normocephalic, atraumatic. Eyes: Pupils equal round and reactive to light, pkl extra-ocular motions intact. Lids and lashes normal. Conjunctiva and sclera are non-icteric and not injected. Cornea within normal limits. Periorbital areas with no swelling, redness, or edema. ENT: Nares patent. No nasal discharge, no septal abnormalities noted. Tympanic membranes are normal and external auditory canals are clear. Oropharynx with no redness, swelling, or masses, exudates, or evidence of obstruction, uvula midline. Mucous membranes moist. Neck: Trachea midline, no thyromegaly or masses palpated, and no cervical lymphadenopathy. Supple, full range of motion without nuchal rigidity, or vertebral point tenderness. No Meningismus. Chest/axilla: Normal chest wall appearance and motion. Nontender with no deformity. No lesions are appreciated. Cardiovascular: Regular rate and rhythm with a normal S1 and S2. No gallops, murmurs, or rubs. Normal PMI, no JVD. No pulse deficits. 19:48 Respiratory: mild respiratory distress is noted, Respirations: labored breathing, that is mild, Breath sounds: rales, that are moderate, are scattered. 19:48 Abdomen/GI: Bowel sounds: normal, Palpation: abdomen is soft and non-tender, in all quadrants. 19:48 Back: Exam negative for acute changes. 19:48 : Exam negative for acute changes. 19:48 Musculoskeletal/extremity: Extremities: grossly normal except: noted in the right upper extremity: decreased ROM, started yesterday. 19:48 Skin: Exam negative for rash. 19:48 Neuro: Mentation: appropriate for stated age, Cranial nerves: grossly normal, Motor: decrease range of movements, right upper extremity. Vital Signs: 19:00 Pulse 130; Resp 32; Pulse Ox 87% 5 lpm ; tw2 19:00 BP 130 / 108; Pulse 98; Resp 30; Temp 101.2(O); Pulse Ox 100% on 15% Non-rebreather cc4 mask; 19:00 Weight 52.16 kg; Height 5 ft. 4 in. (162.56 cm); cc4 19:15 BP 144 / 79; Pulse 129; Resp 32; Pulse Ox 93% ; cc4 19:20 BP 141 / 98; Pulse 126; Resp 32; Pulse Ox 99% on Non-rebreather mask; cc4 19:24 Temp 101.2(O); tw2 19:30 BP 144 / 79; Pulse 129; Resp 32; Pulse Ox 93% on Non-rebreather mask; cc4 19:45 BP 148 / 86; Pulse 121; Resp 30; Pulse Ox 94% on Non-rebreather mask; cc4 20:51 BP 123 / 65; Pulse 122; Resp 28; Pulse Ox 98% on R/A; cc4 21:45 BP 114 / 60; Pulse 118; Resp 22; Temp 100.1(O); Pulse Ox 100% on R/A; cc4 22:15 BP 114 / 66; Pulse 114; Resp 35; Pulse Ox 96% ; cs9 22:40 BP 118 / 71; Pulse 120; Resp 31; Pulse Ox 96% ; cs9 23:00 BP 113 / 67; Pulse 103; Resp 24; Temp 98.7; Pulse Ox 100% on 2 lpm NC; cc4 19:00 Body Mass Index 19.74 (52.16 kg, 162.56 cm) cc4 MDM: 19:30 Patient medically screened. pkl 21:27 Data reviewed: vital signs, nurses notes, lab test result(s), EKG, radiologic studies, pkl CT scan, plain films. ED course: Talked to Lj RODRIGUEZ ) Admit to Dr. Rodriguez. 05/27 19:08 Order name: Amylase, Serum; Complete Time: 21:00 iw 05/27 19:08 Order name: Basic Metabolic Panel; Complete Time: 21:00 iw 05/27 19:08 Order name: Blood Culture Adult (2) iw 05/27 19:08 Order name: CBC with Diff; Complete Time: 20:36 iw 05/27 19:08 Order name: CPK; Complete Time: 21:00 iw 05/27 19:08 Order name: Ckmb; Complete Time: 21:00 iw 05/27 19:08 Order name: LFT's; Complete Time: 21:00 iw 05/27 19:08 Order name: Lactate; Complete Time: 21:00 iw 05/27 19:08 Order name: Lipase; Complete Time: 21:00 iw 05/27 19:08 Order name: Procalcitonin iw 05/27 19:08 Order name: Protime (+inr) iw 05/27 19:08 Order name: Ptt, Activated iw 05/27 19:08 Order name: Troponin (emerg Dept Use Only); Complete Time: 21:00 iw 05/27 19:08 Order name: Urine Microscopic Only 05/27 19:08 Order name: Chest Single View XRAY; Complete Time: 19:52 iw 05/27 19:44 Order name: CT Chest Wo Con; Complete Time: 20:39 pkl 05/27 19:44 Order name: CT Head Brain wo Cont; Complete Time: 20:36 pkl 05/27 20:25 Order name: ABG pkl 05/27 20:26 Order name: CBC Smear Scan; Complete Time: 20:39 EDMS 05/27 20:57 Order name: SARS-COV-2 RT PCR EDMS 05/27 19:08 Order name: Cardiac monitoring; Complete Time: 20:13 iw 05/27 19:08 Order name: EKG - Nurse/Tech; Complete Time: 21:43 iw 05/27 19:08 Order name: IV Saline Lock - Large Bore; Complete Time: 20:13 iw 05/27 19:08 Order name: Labs collected and sent; Complete Time: 20:13 iw 05/27 19:08 Order name: O2 Per Protocol; Complete Time: 20:13 05/27 19:08 Order name: O2 Sat Monitoring; Complete Time: 20:14 iw 05/27 19:08 Order name: Urine Dipstick-Ancillary (obtain specimen) iw Administered Medications: 20:33 Drug: NS 0.9% (30 ml/kg) 30 ml/kg Route: IV; Rate: bolus; Site: left antecubital; cc4 20:33 Drug: Tylenol 650 mg Route: PO; cc4 23:20 Follow up: Response: No adverse reaction; Temperature is decreased cc4 22:10 Drug: Zosyn (piperacillin-tazobactam) 3.375 grams Route: IVPB; Infused Over: 60 mins; cc4 Site: left antecubital; 23:10 Follow up: Response: No adverse reaction; IV Status: Completed infusion; IV Intake: cc4 100ml 22:30 Drug: Ativan (LORazepam) 0.5 mg Route: IVP; Site: left antecubital; cc4 22:40 Follow up: Response: No adverse reaction; Anxiety decreased cc4 22:30 Drug: carvedilol 3.125 mg Route: PO; cc4 22:40 Follow up: Response: No adverse reaction cc4 22:40 Drug: D5W 1000 ml Route: IV; Rate: 100 ml/hr; Site: left antecubital; cc4 22:40 Follow up: Response: No adverse reaction cc4 23:20 Follow up: IV Status: Infusion continued; IV Intake: 1000ml cc4 23:10 Drug: vancoMYCIN 1 grams Route: IVPB; Infused Over: 2 hrs; Site: left antecubital; cc4 23:20 Follow up: Response: No adverse reaction cc4 05/28 05:03 Follow up: IV Status: Infusion continued; IV Intake: 250ml cc4 05/27 23:20 Drug: RisperDAL (risperiDONE) 4 mg Route: PO; cc4 23:20 Follow up: Response: No adverse reaction cc4 Disposition Summary: 05/27/21 21:31 Hospitalization Ordered Hospitalization Status: Inpatient Admission pkl Provider: Tristen Rodriguez pkl Location: Telemetry/MedSur (Inpatient) pkl Condition: Stable pkl Problem: new pkl Symptoms: are unchanged pkl Bed/Room Type: Standard pkl Room Assignment: 425(05/27/21 22:16) eb1 Diagnosis - Aspiration pneumonia. Elevated Troponin. Weakness right upper extremity pkl Forms: - Medication Reconciliation Form pkl - SBAR form pkl Signatures: Dispatcher [employer] EDMS Chapincito Mirza MD MD pkl Ashley Ritchie, RN RN iw Lj Maria FNP-C GILL BOX OPERATOR-Cla1 Shalini Kiser RN RN tw2 Sherita Oliveros RN RN eb1 Ruth Boston, RN RN cc4 Corrections: (The following items were deleted from the chart) 19:26 19:14 Home Meds: risperidone oral; tw2 tw 20:13 19:09 BiPap ([employer] Only)+RC.RAD.BRZ ordered. EDMS EDMS 20:57 20:01 CORONAVIRUS+MR.LAB.BRZ ordered. EDMS EDMS 22:16 21:31 pkl eb1
[2021-05-27] MEDS ORDERED: PIPERACIL/TAZO 3.375 GM VIAL IV ONE (22:11)
[2021-05-27] MEDS ORDERED: NA CHLORIDE 0.9% 100 ML ONE (22:12)
--- NOTE | 2021-05-27 22:34 | P.HP ---
Certification for Inpatient Patient admitted to: Inpatient With expected LOS: >2 Midnights Patient will require the following post-hospital care: None Practitioner: I am a practitioner with admitting privileges, knowledge of patient current condition, hospital course, and medical plan of care. Services: Services provided to patient in accordance with Admission requirements found in Title 42 Section 412.3 of the Code of Federal Regulations Patient History Date of Service: 05/27/21 Primary Care Provider: Dr. Alejandra, pulmonology Dr. Montero, cardiology Dr. Mott Reason for admission: Pneumonia History of Present Illness: 41-year-old male with history of muscular dystrophy, bipolar disorder and recurrent pneumonia presents the emergency department for shortness of breath and fever. Family reports that patient's shortness of breath began increasing throughout the day today with increasing oxygen requirement. Patient does have oxygen at home but was found to be hypoxic with saturations in the 60s even on his home oxygen level. Patient with PEG tube in place. Patient was evaluated in the emergency department labs were significant for hemoglobin 12 adequate 38 sodium 147 potassium 3.2 CO2 33 creatinine 0.26 glucose 165 lactic acid 3.2 AST 171 ALT 150 CPK 2739 CK-MB 22.8 troponin 0 0.08 urinalysis pending Covid test negative CT chest without contrast demonstrates large area of lung consolidation in the left lower lobe most compatible with pneumonia. Patient family also noticed that his right upper extremity was very weak which happened suddenly yesterday, CT head brain negative in the emergency department for acute findings. ED provider wishes to admit for further evaluation and management of respiratory failure, pneumonia. Allergies No Known Allergies Allergy (Unverified 02/05/21 02:54) Home Medications: Benztropine Mesylate [Cogentin] 2 mg PO BID 02/05/21 Citalopram [Celexa*] 20 mg PO DAILY 02/05/21 LORazepam [Ativan*] 1 mg PO PRN PRN 02/05/21 risperiDONE [Risperdal] 4 mg PO BID 02/05/21 Folic Acid 1 mg FT DAILY #90 tablet 02/16/21 Jevity 1.5 Oracio Liquid 360 ml FT TID #90 bot 02/16/21 Carvedilol [Coreg] 1 tab PO BID 04/19/21 Albuterol Neb [Proventil 0.083% Neb Soln] 2.5 mg NEB Q4H PRN #60 vial.neb 04/22/21 Amoxicillin/Potassium Clav [Augmentin 500-125 Tablet] 1 each PO BID #20 tablet 04/22/21 Doxycycline Hyclate 100 mg PO BID #20 tablet 04/22/21 acetaZOLAMIDE [Acetazolamide] 125 mg PO DAILY #30 tablet 04/22/21 - Past Medical/Surgical History Diabetic: No -: Muscular dystrophy -: Cardiomyopathy -: BPD -: CHFdiastolic dysfuntion -: PEG tube Psychosocial/ Personal History: Patient is disabled, lives with mother who is his power of decision support analyst - Family History Mother -: Hypertension - Social History Smoking Status: Never smoker Alcohol use: No CD- Drugs: No Caffeine use: No Place of Residence: Home Review of Systems 10-point ROS is otherwise unremarkable General: Fever, Chills, Sweats, Weakness, Malaise Respiratory: Cough, Dry, Shortness of Breath Physical Examination - Physical Exam General: Alert, In no apparent distress, Oriented x2 HEENT: Atraumatic, Other (Mucous membranes dry) Neck: Supple Respiratory: Diminished, Crackles/rales Cardiovascular: No edema, Normal S1 S2 Capillary refill: <2 Seconds Gastrointestinal: Normal bowel sounds, Soft and benign Musculoskeletal: No contractures, No erythema, No tenderness Integumentary: No significant lesion, No tenderness/swelling, No erythema Neurological: Sensation intact, Abnormal strength, Abnormal tone - Studies Laboratory Data (last 24 hrs) 05/27/21 19:40: WBC 6.40, Hgb 12.0 L, Hct 38.0 L, Plt Count 182 05/27/21 19:40: Sodium 147 H, Potassium 3.2 L, BUN 12, Creatinine 0.26 L, Glucose 165 H, Total Bilirubin 0.3, AST 171 H, ALT 150 H, Alkaline Phosphatase 65, Amylase 26, Lipase 16 L Assessment and Plan - Plan Assessment: Acute hypoxic respiratory failure secondary to left lower lobe pneumonia Muscular dystrophy and dysphagia S/P PEG tube insertion BPD Chronic diastolic congestive heart failure Plan: Acute hypoxic respiratory failure secondary to left lower lobe pneumonia: Blood cultures obtained, will obtain sputum culture, patient on broad-spectrum antibiotic with vancomycin/Zosyn given history of recurrent aspiration pneumonia. Pulmonology consulted for additional assistance. Patient not able to comply with incentive spirometry given history of MD. Anticipate clinical improvement over the course next few days, supplemental oxygen as needed. Patient not currently significantly hypercapnic at this time on ABG. Muscular dystrophy and dysphagia S/P PEG tube insertion: Continue as above, tube feeds per dietary, n.p.o., elevate head of bed. Continue home medications. Elevated CPK and CK-MB levels reported by family to be elevated throughout his life given muscular dystrophy. Troponin also mildly elevated will trend. BPD: Continue medications Chronic diastolic congestive heart failure: Patient tachycardic and appears dry on admission given IV fluids, also appears dehydrated with mild hypernatremia continue with IV fluids overnight. DVT PPX: Lovenox Code status: Full Discharge Plan: Home Plan to discharge in: Greater than 2 days - Advance Directives Does patient have a Living Will: No Does patient have a Durable POA for Healthcare: Yes - Code Status/Comfort Care Code Status Assessed: Yes (Full code) Critical Care: No Time Spent Managing Pts Care (In Minutes): 55
[2021-05-27] MEDS ORDERED: NA CHLORIDE 0.9% 500 ML ONE (22:37)
[2021-05-27] MEDS ORDERED: LORazepam 2 MG/ML VIAL ONE (22:52)
[2021-05-27] MEDS ORDERED: carvediloL 6.25 MG TAB ONE (22:54)
[2021-05-27] MEDS ORDERED: D5W 1,000 ML IV ONE (22:55)
[2021-05-27] MEDS ORDERED: VANCOMYCIN 1 GM/VIAL ONE (23:25)
[2021-05-27] MEDS ORDERED: NA CHLORIDE 0.9% 250 ML ONE (23:25)
[2021-05-27] MEDS ORDERED: RISPERIDONE 1 MG TABLET ONE (23:28)
[2021-05-27] MEDS ORDERED: LORazepam 2 MG/ML VIAL IV PRN (23:44)
[2021-05-27] MEDS ORDERED: ONDANSETRON 4 MG/2 ML VIAL IV PRN (23:44)
[2021-05-27] MEDS ORDERED: ALBUTEROL 2.5 MG/3 ML NEB SOL NEB PRN (23:44)
[2021-05-27] MEDS ORDERED: IPRATROPIUM BROM 0.5MG/2.5ML NEB PRN (23:44)
[2021-05-27] MEDS ORDERED: D5W 1,000 ML IV SCH (23:44)
[2021-05-28] MEDS ORDERED: JEVITY 1.5 CAL LIQUID 1,000 ML BOT FT ONE (00:08)
[2021-05-28 00:30] VITALS: BMI 19.7
[2021-05-28 03:28] LABS: Urine Appearance CLOUDY (Clear); Urine Bilirubin NEGATIVE (Negative); Urine Blood NEGATIVE (Negative); Urine Color YELLOW (Yellow); Urine Glucose 1+ (Negative); Urine Protein NEGATIVE (Negative); Urine Urobilinogen 0.2 mg/dL (0.2-1.0); Urine pH 7.5 (5.0-7.0)
[2021-05-28 03:29] LABS: Urine Microscopic Reflex ORDER UMIC
[2021-05-28 04:00] LABS: Absolute Lymphocytes (CBC) 0.5 K/uL (0.7-4.9); Basophils % 0.1 % (0-1.3); Hematocrit 32.8 % (39.6-49.0); RBC Red Blood Cell Count 3.79 M/uL (4.33-5.43)
[2021-05-28] MEDS: ACETAMINOPHEN 160 MG/5 ML UCUP FT PRN (04:18)
[2021-05-28 04:56] LABS: ALT/SGPT 122 U/L (12-78); AST/SGOT 121 U/L (15-37); Albumin 2.3 g/dL (3.4-5.0); Alkaline Phosphatase 52 U/L (45-117); BUN Blood Urea Nitrogen 10 mg/dL (7-18); Bicarbonate 31 mmol/L (21-32); Bilirubin Total 0.4 mg/dL (0.2-1.0); Glucose Level 290 mg/dL (74-106); HDL Cholesterol 41 mg/dL (40-60); LDL Cholesterol, Calculated 43 (<130); Magnesium 1.6 mg/dL (1.8-2.4); Potassium 3.4 mmol/L (3.5-5.1); Sodium Level 144 mmol/L (136-145); Thyroid Stimulating Hormone 0.599 uIU/mL (0.360-3.740); Troponin I 0.08 ng/mL (0.0-0.045)
[2021-05-28] MEDS: carvediloL 3.125 MG TAB PO SCH ×2 (05:03→18:00)
[2021-05-28 05:30] LABS: Creatine Phosphokinase 2079 U/L (39-308)
[2021-05-28 05:35] LABS: Urine Amorphous Sediment 3+ /HPF (NONE SEEN); Urine Bacteria <20 /HPF (NONE SEEN); Urine RBC NONE SEEN /HPF (NONE SEEN)
--- NOTE | 2021-05-28 06:15 | P.PN ---
Subjective Date of Service: 05/28/21 Primary Care Provider: Dr. Alejandra, pulmonology Dr. Montero, cardiology Dr. Mott Chief Complaint: Pneumonia Subjective: Worsening (Patient with hypoxia this morning. Then rapid response was called as the patient had increased sedation with poor inspiration.) Physical Examination - Vital Signs Temperature: 99.0 F Blood Pressure: 155/75 Pulse: 128 Respirations: 26 Pulse Ox (%): 95 - Studies Laboratory Data (last 24 hrs) 05/27/21 19:40: WBC 6.40, Hgb 12.0 L, Hct 38.0 L, Plt Count 182 05/27/21 19:40: Sodium 147 H, Potassium 3.2 L, BUN 12, Creatinine 0.26 L, Glucose 165 H, Total Bilirubin 0.3, AST 171 H, ALT 150 H, Alkaline Phosphatase 65, Amylase 26, Lipase 16 L 05/27/21 19:08: PT Cancelled, INR Cancelled, APTT Cancelled Assessment & Plan Discharge Plan: Home Plan to discharge in: Greater than 2 days Physician Review Additional Text: COVID: negative CXR: COMPARISON: Chest Pa And Lat (2 Views) dated 05/05/2021; Abdomen 1 View (KUB) dated 05/01/2021; Chest Single View dated 04/23/2021; Chest Single View dated 04/22/2021 FINDINGS: Portable technique limits examination quality. A large area of lung consolidation is present in the left lung base, a small or consolidation is present in the right lung base, most compatible with pneumonia. The heart is normal in size. No displaced fractures. IMPRESSION: Bibasilar lung infiltrates compatible with pneumonia, significantly greater on the left. CT chest: COMPARISON: Chest For Pe Angio dated 02/06/2021 FINDINGS: Large area of lung consolidation is seen left lower lobe lingula. This is compatible with pneumonia. Mild infiltrate is present in the right lung base as well. No pleural thickening or pleural effusion. No pneumothorax. No axillary, mediastinal or hilar adenopathy. No concerning bony finding. No gross upper abdominal finding. All CT scans are performed using dose optimization technique as appropriate and may include automated exposure control or mA/KV adjustment according to patient size. IMPRESSION: Large area of lung consolidation in the left lower lobe is most compatible with pneumonia. CT Head: COMPARISON: <Comparisons> TECHNIQUE: All CT scans are performed using dose optimization technique as appropriate and may include automated exposure control or mA/KV adjustment according to patient size. FINDINGS: Mild motion degradation is present, limiting study. No intracranial hemorrhage, hydrocephalus or extra-axial fluid collection.No areas of brain edema or evidence of midline shift. The paranasal sinuses and mastoids are clear. The calvarium is intact. IMPRESSION: No acute intracranial abnormality. Physical exam: General: Decreased alertness. Increase sedation noted. HEENT: Atraumatic, Other (Mucous membranes dry) Neck: Supple Respiratory: Diminished bilateral. Crackles to the left base. Patient to be started on BiPAP. Cardiovascular: No edema, Normal S1 S2 Capillary refill: <2 Seconds Gastrointestinal: Normal bowel sounds, Soft and benign Musculoskeletal: Muscle wasting to the upper and lower extremities. Integumentary: No significant edema Neurological: Increased sedation noted. Mother reports some weakness to the right arm. Assessment: Acute hypoxic/hypercapnic respiratory failure with respiratory acidosis secondary to left large consolidated lower lobe pneumonia Muscular dystrophy and dysphagia S/P PEG tube insertion BPD Chronic diastolic congestive heart failure Plan: Acute hypoxic/hypercapnic respiratory failure with respiratory acidosis secondary to left large consolidated lower lobe pneumonia: Patient with worsening condition. Rapid response called. Increase sedation noted. Hypoxia noted. ABG showed a pH of 7.09 with a PCO2 of 122. Discussed at length with pulmonology. Will transfer patient to the ICU. Patient has been started on BiPAP. Recheck blood gases in 1 hour. Will obtain chest x-ray. Continue with IV vancomycin and Zosyn. Await blood, sputum culture. Case discussed at length with other and sister. Advanced directives addressed in detail. Patient is DO NOT RESUSCITATE. We will continue to monitor closely. His condition continues to decline and patient requires intubation without a code then intubation would be considered by mother. For now continue with plan of care. Will continue to reassess and monitor closely. Muscular dystrophy and dysphagia S/P PEG tube insertion: Fluids adjusted this morning. Continue with NG tube feeds. Will monitor closely. BPD: Continue medications Chronic diastolic congestive heart failure: We will obtain echocardiogram to further evaluate. Continue IV fluids. Monitor closely. DVT PPX: Lovenox Code status: Case discussed at length with mother and sister. After long discussion, patient is now DO NOT RESUSCITATE. Discharge Plan: Home at discharge ICU care30 minutes Time Spent Managing Pts Care (In Minutes): 55
[2021-05-28] MEDS: NACHLORIDE 0.45% 1,000 ML IV SCH ×3 (07:00→20:55)
[2021-05-28] MEDS ORDERED: POTASSIUM CL SA 10 MEQ TAB PO ONE (08:54)
[2021-05-28] MEDS ORDERED: RISPERIDONE 1 MG TABLET PO SCH ×2 (09:00)
[2021-05-28] MEDS ORDERED: KCL 20 MEQ/100 mL IVPB 20 MEQ/100 ML BAG IV SCH (09:00)
[2021-05-28] MEDS ORDERED: MAGNESIUM SULFATE 1 gm IVPB 1 GM/100 ML BAG IV ONE (09:00)
[2021-05-28] MEDS: CITALOPRAM 10 MG TABLET PO SCH (09:32)
[2021-05-28] MEDS: FOLIC ACID 1 MG TABLET PO SCH (09:33)
[2021-05-28] MEDS: acetaZOLAMIDE 250 MG TAB PO SCH (09:33)
[2021-05-28] MEDS: PIPER TAZO 3.375 GM in NA CHLORIDE 0.9% 100 ML IV SCH ×2 (09:33→09:35)
[2021-05-28] MEDS: ENOXAPARIN 40 MG/0.4 ML SQ SCH (09:34)
[2021-05-28 09:37] LABS: Arterial Blood Carboxyhemoglob 0.9 % (0-1.5); Blood Gas Oxyhemoglobin 91.4 % (94-97); Blood O2 Saturation 93.2 % (92-98.5)
[2021-05-28] MEDS ORDERED: POTASSIUM 25 MEQ EFFERV TAB PO ONE (09:53)
--- NOTE | 2021-05-28 10:16 | RAD REPORT ---
EXAM DESCRIPTION: RAD - Chest Single View - 05/28/2021 10:04 am CLINICAL HISTORY: hypoxia COMPARISON: CT chest May 27, portable chest May 27 TECHNIQUE: AP portable chest image was obtained 05/28/2021 10:04 am . FINDINGS: Semi-upright examination shows overall low lung volume. Patient is slightly rotated as wel l. Right base atelectasis is present no new or progressive right lung field finding suspected. Mid an d lower left lung field opacification remains. This is probably not substantially different when adju sting for the low lung volumes and semi upright position. Cardiac silhouette is prominent, similar to comparison. No vascular engorgement. No pneumothorax is present. Small left pleural effusion cannot be excluded. Trachea remains in the midline. No acute aor tic findings suspected. Prominent gaseous distention of the stomach. IMPRESSION: Extensive airspace opacification lower left lung field not substantially different from comparison. Prominent gaseous distention of the stomach.
[2021-05-28 10:57] LABS: Arterial Blood Carboxyhemoglob 1.2 % (0-1.5); Blood Gas Oxyhemoglobin 89.5 % (94-97); Blood O2 Saturation 91.2 % (92-98.5)
[2021-05-28] MEDS ORDERED: VANCOMYCIN 1 GM/VIAL ONE ×2 (11:17→21:08)
[2021-05-28] MEDS ORDERED: POTASSIUM 25 MEQ EFFERV TAB ONE (11:17)
[2021-05-28] MEDS ORDERED: NA CHLORIDE 0.9% 250 ML ONE ×2 (11:18→21:10)
[2021-05-28] MEDS: VANCOMYCIN/NS 1 gm 1 GM/250 ML BAG IVPB SCH ×2 (11:20→20:56)
[2021-05-28] MEDS ORDERED: GLUCAGON 1 MG/VIAL IM PRN (11:24)
[2021-05-28] MEDS ORDERED: D50W 25 GM/50 ML SYRINGE IV PRN (11:24)
[2021-05-28] MEDS: RISPERIDONE 1 MG TABLET PO SCH ×2 (11:33→20:56)
[2021-05-28] MEDS: INSULIN -REGULAR HUMAN 50 UNIT/0.5 ML ML SQ SCH ×2 (11:54→18:00)
--- NOTE | 2021-05-28 12:34 | P.CNS ---
Date of Consult: 05/28/21 Primary Care Provider: Dr. Alejandra, pulmonology Dr. Montero, cardiology Dr. Mott Chief Complaint: Respiratory failure History of Present Illness: Patient is 41 years of age with a history of muscular dystrophy admitted with hypoxemia and fever he was found to be very hypercapnic transfer to the ICU currently on BiPAP Allergies No Known Allergies Allergy (Unverified 02/05/21 02:54) Home Medications: Benztropine Mesylate [Cogentin] 2 mg PO BID 02/05/21 Citalopram [Celexa*] 20 mg PO DAILY 02/05/21 LORazepam [Ativan*] 1 mg PO PRN PRN 02/05/21 risperiDONE [Risperdal] 4 mg PO BID 02/05/21 Folic Acid 1 mg FT DAILY #90 tablet 02/16/21 Jevity 1.5 Oracio Liquid 360 ml FT TID #90 bot 02/16/21 Carvedilol [Coreg] 1 tab PO BID 04/19/21 Albuterol Neb [Proventil 0.083% Neb Soln] 2.5 mg NEB Q4H PRN #60 vial.neb 04/22/21 Amoxicillin/Potassium Clav [Augmentin 500-125 Tablet] 1 each PO BID #20 tablet 04/22/21 Doxycycline Hyclate 100 mg PO BID #20 tablet 04/22/21 acetaZOLAMIDE [Acetazolamide] 125 mg PO DAILY #30 tablet 04/22/21 - Past Medical/Surgical History Diabetic: No -: Muscular dystrophy -: Cardiomyopathy -: BPD -: CHFdiastolic dysfuntion -: PEG tube Psychosocial/ Personal History: Patient is disabled, lives with mother who is his power of trust and estates attorney - Family History Mother Medical History: Hypertension - Social History Alcohol use: No CD- Drugs: No Caffeine use: No Place of Residence: Home Review of Systems is unable to be obtained Physical Examination Temp Pulse Resp BP Pulse Ox 99.0 F 128 H 26 H 155/75 H 95 05/28/21 12:08 05/28/21 12:08 05/28/21 12:08 05/28/21 12:08 05/28/21 12:08 General: Unresponsive Respiratory: Clear to auscultation bilaterally, Diminished Cardiovascular: No edema, Normal S1 S2 Laboratory Data (last 24 hrs) 10/27/21 19:40: WBC 6.40, Hgb 12.0 L, Hct 38.0 L, Plt Count 182 05/27/21 19:40: Sodium 147 H, Potassium 3.2 L, BUN 12, Creatinine 0.26 L, Glucose 165 H, Total Bilirubin 0.3, AST 171 H, ALT 150 H, Alkaline Phosphatase 65, Amylase 26, Lipase 16 L 05/27/21 19:08: PT Cancelled, INR Cancelled, APTT Cancelled - Problems (1) Hypercapnic respiratory failure Current Visit: No Status: Acute Plan: Patient is a 41 years of age he has chronic respiratory failure from muscular dystrophy he got little worse became hypoxic currently on BiPAP chest CT scan shows some inflammatory changes at the left base probably pneumonia agree with vancomycin and Zosyn white count normal patient is febrile cultures are pending benefit from a noninvasive ventilator at home prognosis poor Meds and labs reviewed Qualifiers: Chronicity: acute on chronic Qualified Code(s): J96.22 - Acute and chronic respiratory failure with hypercapnia
--- NOTE | 2021-05-28 17:09 | CON ---
Consultation called because of right wrist drop. History Of Present Illness: Mr. 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 Bourgeois at [facility]. His comorbiditie s include bipolar disorder. He has had recurrent pneumonias due to inability to protect his airway. He is fed by PEG tube. The patient's 2 younger brothers are in the room and his mother was on the p shauna. They report that about 2 months ago he change from his normal air bed, which has ability to sh ift the pressure around and let him mobilize as he is mostly immobile in terms of now significant pro ximal weakness in the upper and lower extremities. He did have distal weak strength that was more pr eserved in terms of grinder set up operator internal strength and pushing and pulling on the foot although those were weakening t oo. He moved from his bed to a sofa where his preferred side was to lie on the right side and his fa praneeth noted that 2 days ago he was now unable to lift the right wrist. He still had preserved right g rip strength. He was brought back to [facility] on 05/27. His head CT scan showed no acute ischemic or hemorrhagic findings. Chest CT scan did show a large area of lung consolidation on the l eft, compatible with pneumonia and likely aspiration pneumonia. He is treated with intravenous piper acillin/tazobactam 3.375 g q.8 hours in addition to vancomycin 1 g every 12 hours. He has his comorb id condition medications continued. Past Medical History: As noted. Allergies: NO KNOWN DRUG ALLERGIES. Medications: Cogentin 2 mg twice daily. Celexa 20 mg daily. Ativan 1 mg as needed. Risperdal 4 mg twice daily. Folic acid 1 mg daily. Jevity 360 mL 3 times daily, Coreg 1 twice daily. Albuterol n ebulizer, Augmentin twice daily, doxycycline twice daily, acetazolamide 125 mg daily. Surgical History: PEG tube placed. Family History: Mother has hypertension. It should be noted that the patient is disabled and lives with his mother who is his power of city attorney. Review of Systems: The patient does make grunting noises in terms of approval and disapproval but no effective full verb al communication. He has had diffuse weakness, weakness in the right wrist more than the left. Some cough and shortness of breath and of course more proximal and distal weakness. Physical Examination: Vital Signs: Blood pressure 109/72, pulse of 104, respiratory rate up to 24, temperature up to 99, s aturation 95%-100%. Weight 115 pounds. Height 5 feet 4 inches, BMI 19.7. General: Mr. Zapata is lying in bed with breather facemask in place for CPAP. He does appear to be in slight distress as he is on to the mask. He is normocephalic. He is nontraumatic. Extremities: Show no cyanosis or edema. Neurological: He does grunt, not to questions. He is able to follow simple commands to move the lef t hand and can pull the wrist back. He makes attempts at extending the fingers, but not able to full y extend the fingers of the left hand. He has stronger grinder set up operator internal strength on the left. Unable to proxima lly move the deltoid muscle, biceps or triceps muscle . His right wrist shows no wrist ext ension, no finger extension. There is strong right grinder set up operator internal. He has intact sensation in the right forea rm compared to the left side as well as lower extremities he has no real proximal strength, unable to bend the knee or lift the leg off the bed. He can move the foot around and the left side is more mo bile than on the right and he is able to push down easier than to pull up or to dorsiflexion of the f eet. Coordination cannot be fully assessed. Tone is depressed in upper and lower extremities. Refl exes very depressed in the extremities. Laboratory Studies: Complete blood count with differential shows a slightly low hemoglobin of 10.5, normal white blood cell count of 10.2. Arterial blood gas at the time of his admission, pH 7.1, pCO2 122. After some ventilation, pH 7.3, pCO2 70, PO2 64.5. Chemistries: Glucose of 201, potassium lo w at 3.3, sodium 144, chloride 108, carbon dioxide 31, BUN 10, creatinine 0.37. Liver function studi es show elevated AST of 121 and ALT elevated 132, alkaline phosphatase is normal. Lactate dehydrogen ase elevated at 330. Creatine kinase elevated to 2079. Troponin 1 elevated at 0.23. Urinalysis venkat ws 3+ amorphous sediment. His COVID-19 test is negative. Assessment: Mr. Zapata is a 41-year-old patient with limb-girdle muscular dystrophy. He has very weak axial muscles and he has aspiration pneumonia. He also has right wrist drop from compression, likel y radial nerve compression of the spiral groove region. This was discussed with the patient's mother and 2 brothers in the room. At this point, conservative treatment to help regain functioning, which includes offloading the right shoulder, putting him back in the air bed that can move [id number] a nd range of motion activities of the right upper and lower extremities proximally and distally to inc lude the wrist, finger extension and flexion. No need for brain MRI or EMG nerve conduction study at this point. BONNY/CINTHIA Voice ID: [id number] Report ID: [id number]
[2021-05-28 17:35] LABS: Arterial Blood Carboxyhemoglob 1.1 % (0-1.5); Blood Gas Oxyhemoglobin 95.9 % (94-97); Blood O2 Saturation 97.9 % (92-98.5)
[2021-05-28] MEDS ORDERED: carvediloL 6.25 MG TAB ONE (18:04)
[2021-05-28] MEDS: BENZTROPINE 1 MG TAB PO SCH (20:58)
[2021-05-28] MEDS ORDERED: NACHLORIDE 0.45% 1,000 ML IV ONE (21:07)
[2021-05-28] MEDS ORDERED: BENZTROPINE 1 MG TAB ONE (21:19)
[2021-05-29] MEDS: PIPER TAZO 3.375 GM in NA CHLORIDE 0.9% 100 ML IV SCH ×3 (00:59→16:27)
[2021-05-29] MEDS ORDERED: NA CHLORIDE 0.9% 100 ML ONE ×2 (01:19→09:18)
[2021-05-29] MEDS ORDERED: PIPERACIL/TAZO 3.375 GM VIAL IV ONE ×2 (01:20→09:19)
[2021-05-29 04:01] LABS: Absolute Lymphocytes (CBC) 0.7 K/uL (0.7-4.9); Basophils % 0.1 % (0-1.3); Hematocrit 31.8 % (39.6-49.0); Lymphocytes % 7.2 % (15.3-44.8); MPV 9.5 fL (7.6-11.3); RBC Red Blood Cell Count 3.69 M/uL (4.33-5.43)
[2021-05-29 04:12] LABS: ALT/SGPT 98 U/L (12-78); AST/SGOT 56 U/L (15-37); Albumin 2.1 g/dL (3.4-5.0); Alkaline Phosphatase 55 U/L (45-117); BUN Blood Urea Nitrogen 8 mg/dL (7-18); Bicarbonate 32 mmol/L (21-32); Bilirubin Total 0.3 mg/dL (0.2-1.0); Creatine Phosphokinase 591 U/L (39-308); Glucose Level 206 mg/dL (74-106); Magnesium 1.8 mg/dL (1.8-2.4); Potassium 3.9 mmol/L (3.5-5.1); Protein, Total 5.7 g/dL (6.4-8.2); Sodium Level 143 mmol/L (136-145)
[2021-05-29 04:25] LABS: Anisocytosis 1+; Blood Morphology Comment NOTED (NOT SEEN); Platelet Estimate ADEQ
[2021-05-29] MEDS: carvediloL 3.125 MG TAB PO SCH (06:10)
[2021-05-29] MEDS: INSULIN -REGULAR HUMAN 50 UNIT/0.5 ML ML SQ SCH ×4 (06:10→18:00)
--- NOTE | 2021-05-29 06:12 | P.PN ---
Subjective Date of Service: 05/29/21 Primary Care Provider: Dr. Alejandra, pulmonology Dr. Montero, cardiology Dr. Mott Chief Complaint: Respiratory failure Subjective: Improving, Doing well Physical Examination - Vital Signs Temperature: 98.9 F Blood Pressure: 108/69 Pulse: 113 Respirations: 22 Pulse Ox (%): 99 Assessment & Plan Discharge Plan: Home Plan to discharge in: 72 Hours Physician Review Additional Text: COVID: negative CXR: COMPARISON: Chest Pa And Lat (2 Views) dated 05/05/2021; Abdomen 1 View (KUB) dated 05/01/2021; Chest Single View dated 04/23/2021; Chest Single View dated 04/22/2021 FINDINGS: Portable technique limits examination quality. A large area of lung consolidation is present in the left lung base, a small or consolidation is present in the right lung base, most compatible with pneumonia. The heart is normal in size. No displaced fractures. IMPRESSION: Bibasilar lung infiltrates compatible with pneumonia, significantly greater on the left. CT chest: COMPARISON: Chest For Pe Angio dated 02/06/2021 FINDINGS: Large area of lung consolidation is seen left lower lobe lingula. This is compatible with pneumonia. Mild infiltrate is present in the right lung base as well. No pleural thickening or pleural effusion. No pneumothorax. No axillary, mediastinal or hilar adenopathy. No concerning bony finding. No gross upper abdominal finding. All CT scans are performed using dose optimization technique as appropriate and may include automated exposure control or mA/KV adjustment according to patient size. IMPRESSION: Large area of lung consolidation in the left lower lobe is most compatible with pneumonia. CT Head: COMPARISON: <Comparisons> TECHNIQUE: All CT scans are performed using dose optimization technique as appropriate and may include automated exposure control or mA/KV adjustment according to patient size. FINDINGS: Mild motion degradation is present, limiting study. No intracranial hemorrhage, hydrocephalus or extra-axial fluid collection.No areas of brain edema or evidence of midline shift. The paranasal sinuses and mastoids are clear. The calvarium is intact. IMPRESSION: No acute intracranial abnormality. Physical exam: General: Patient much improved. Patient more alert. Currently on 2 L per nasal cannula. HEENT: Atraumatic, Other (Mucous membranes dry) Neck: Supple Respiratory: Better air movement bilateral. Currently on 2 L per nasal cannula. Cardiovascular: No edema, Normal S1 S2 Capillary refill: <2 Seconds Gastrointestinal: Normal bowel sounds, Soft and benign Musculoskeletal: Muscle wasting to the upper and lower extremities. Integumentary: No significant edema Neurological: Increased sedation noted. Mother reports some weakness to the right arm. 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 Patient alert and cooperative. Yesterday ABG showed improvement with BiPAP. Patient has been able to be weaned off BiPAP and currently on 2 L per nasal cannula. Continue PEG tube feeds. Continue IV antibiotic therapy vancomycin and Zosyn. Await blood, sputum culture. Continue Diamox. IV fluids adjusted. Patient remains DO NOT RESUSCITATE. Will discuss with pulmonology about plan of care. Patient may require noninvasive ventilator at home. We will continue monitor closely. Recheck chest x-ray tomorrow. Anticipate continued improvement over the next 48 to 72 hours. Limb girdle muscular dystrophy and dysphagia S/P PEG tube insertion: IV fluids adjusted. Continue with NG tube feeds. Will monitor closely. BPD: Continue medicationsbenztropine, Celexa, and Risperdal Elevated troponin likely ischemic demand with chronic diastolic congestive heart failure: We will obtain echocardiogram. Will monitor closely. Continue with above plan of care. Weakness to the right upper extremity likely right wrist drop radial nerve compression neuropathy: We will monitor closely. Physical therapy to help with strength. DVT PPX: Lovenox Code status: Case discussed at length with mother and sister. After long discussion, patient is now DO NOT RESUSCITATE. Discharge Plan: Home at discharge Time Spent Managing Pts Care (In Minutes): 55
[2021-05-29] MEDS ORDERED: INSULIN -REGULAR HUMAN 50 UNIT/0.5 ML ML ONE (06:35)
[2021-05-29] MEDS: acetaZOLAMIDE 250 MG TAB PO SCH (08:55)
[2021-05-29] MEDS: ENOXAPARIN 40 MG/0.4 ML SQ SCH (08:55)
[2021-05-29] MEDS: BENZTROPINE 1 MG TAB PO SCH ×2 (08:56→19:45)
[2021-05-29] MEDS: CITALOPRAM 10 MG TABLET PO SCH (08:56)
[2021-05-29] MEDS: FOLIC ACID 1 MG TABLET PO SCH (08:57)
[2021-05-29] MEDS ORDERED: VANCOMYCIN/NS 1 gm 1 GM/250 ML BAG IVPB SCH (09:00)
[2021-05-29] MEDS ORDERED: MAGNESIUM SULFATE 1 gm IVPB 1 GM/100 ML BAG IV ONE ×2 (09:00→09:19)
[2021-05-29] MEDS ORDERED: POTASSIUM 25 MEQ EFFERV TAB PO ONE (09:00)
[2021-05-29] MEDS ORDERED: ENOXAPARIN 40 MG/0.4 ML SQ ONE (09:18)
[2021-05-29] MEDS ORDERED: acetaZOLAMIDE 250 MG TAB ONE (09:18)
[2021-05-29] MEDS ORDERED: FOLIC ACID 1 MG TABLET ONE (09:18)
[2021-05-29] MEDS ORDERED: POTASSIUM 25 MEQ EFFERV TAB ONE (09:18)
[2021-05-29] MEDS ORDERED: NACHLORIDE 0.45% 1,000 ML IV ONE (10:01)
[2021-05-29] MEDS: RISPERIDONE 1 MG TABLET PO SCH ×2 (10:03→19:45)
[2021-05-29] MEDS: VANCOMYCIN/NS 1 gm 1 GM/250 ML BAG IVPB SCH ×2 (10:07→19:46)
[2021-05-29] MEDS ORDERED: VANCOMYCIN 1 GM/VIAL ONE (10:33)
[2021-05-29] MEDS ORDERED: NA CHLORIDE 0.9% 250 ML ONE (10:33)
[2021-05-29] MEDS: NACHLORIDE 0.45% 1,000 ML IV SCH ×2 (11:45→13:00)
[2021-05-29] MEDS ORDERED: JEVITY 1.5 CAL LIQUID 1,000 ML BOT FT SCH (14:00)
[2021-05-29] MEDS: ACETAMINOPHEN 160 MG/5 ML UCUP FT PRN (20:04)
[2021-05-30] MEDS: PIPER TAZO 3.375 GM in NA CHLORIDE 0.9% 100 ML IV SCH ×2 (02:22→10:23)
[2021-05-30 05:55] LABS: Absolute Lymphocytes (CBC) 1.3 K/uL (0.7-4.9); Basophils % 0.2 % (0-1.3); Hematocrit 30.3 % (39.6-49.0); Lymphocytes % 16.1 % (15.3-44.8); RBC Red Blood Cell Count 3.48 M/uL (4.33-5.43)
[2021-05-30] MEDS: INSULIN -REGULAR HUMAN 50 UNIT/0.5 ML ML SQ SCH ×4 (06:00→18:00)
--- NOTE | 2021-05-30 06:10 | P.PN ---
Subjective Date of Service: 05/30/21 Primary Care Provider: Dr. Alejandra, Pulmonary-Dr. Hand, Cardiology Dr. Mott Chief Complaint: Respiratory failure Subjective: Other (Clinically improved. Currently on 6 L per nasal cannula.) Physical Examination - Vital Signs Temperature: 97.7 F Blood Pressure: 101/62 Pulse: 96 Respirations: 19 Pulse Ox (%): 100 Assessment & Plan Discharge Plan: Home Plan to discharge in: 72 Hours Physician Review Additional Text: COVID: negative CXR: COMPARISON: Chest Pa And Lat (2 Views) dated 05/05/2021; Abdomen 1 View (KUB) dated 05/01/2021; Chest Single View dated 04/23/2021; Chest Single View dated 04/22/2021 FINDINGS: Portable technique limits examination quality. A large area of lung consolidation is present in the left lung base, a small or consolidation is present in the right lung base, most compatible with pneumonia. The heart is normal in size. No displaced fractures. IMPRESSION: Bibasilar lung infiltrates compatible with pneumonia, significantly greater on the left. CT chest: COMPARISON: Chest For Pe Angio dated 02/06/2021 FINDINGS: Large area of lung consolidation is seen left lower lobe lingula. This is compatible with pneumonia. Mild infiltrate is present in the right lung base as well. No pleural thickening or pleural effusion. No pneumothorax. No axillary, mediastinal or hilar adenopathy. No concerning bony finding. No gross upper abdominal finding. All CT scans are performed using dose optimization technique as appropriate and may include automated exposure control or mA/KV adjustment according to patient size. IMPRESSION: Large area of lung consolidation in the left lower lobe is most compatible with pneumonia. CT Head: COMPARISON: <Comparisons> TECHNIQUE: All CT scans are performed using dose optimization technique as appropriate and may include automated exposure control or mA/KV adjustment according to patient size. FINDINGS: Mild motion degradation is present, limiting study. No intracranial hemorrhage, hydrocephalus or extra-axial fluid collection.No areas of brain edema or evidence of midline shift. The paranasal sinuses and mastoids are clear. The calvarium is intact. IMPRESSION: No acute intracranial abnormality. Follow up CXR 05/30/2021: COMPARISON: May 28, 2021 FINDINGS: Complete opacification left hemithorax with volume loss Mild to moderate right basilar lung opacities. Cardiomegaly IMPRESSION: Complete opacification left hemithorax consistent with atelectasis and pneumonia. Mild to moderate right basilar pneumonia Physical exam: General: Patient alert, cooperative. Currently on 6 L per nasal cannula. HEENT: Atraumatic, Other (Mucous membranes dry) Neck: Supple Respiratory: Decreased to the left side currently on 6 L per nasal cannula Cardiovascular: No edema, Normal S1 S2 Capillary refill: <2 Seconds Gastrointestinal: Normal bowel sounds, Soft and benign Musculoskeletal: Muscle wasting to the upper and lower extremities. Integumentary: No significant edema Neurological: Increased sedation noted. Patient still with weakness to the rig ht arm Assessment: Acute hypoxic/hypercapnic respiratory failure with respiratory acidosis secondary to left large consolidated lower lobe pneumonia Limb-girdle muscular dystrophy and dysphagia S/P PEG tube insertion BPD Elevated troponin likely ischemic demand with chronic diastolic congestive heart failure Weakness to the right upper extremity likely right wrist drop radial nerve compression neuropathy Plan: Acute hypoxic/hypercapnic respiratory failure with respiratory acidosis secondary to left large consolidated lower lobe pneumonia: Spoke at length with pulmonology. Pulmonology plans to change IV antibiotic therapy to oral. Continue with Levaquin and doxycycline. Pulmonology also plans to order chest percussion therapy. Pulmonology recommends noninvasive ventilator. This will be arranged to continue at home for his chronic respiratory failure related to muscular dystrophy. This was addressed in detail with mother who takes care of him. DC IV fluids. Continue with water flushes. Continue Diamox. Continue to monitor closely. Continue to wean off oxygen. Anticipate likely discharge within the next 72 hours. Limb girdle muscular dystrophy and dysphagia S/P PEG tube insertion: IV fluids discontinued. Continue with oral flushes. Continue with NG tube feeds. Will monitor closely. BPD: Continue medicationsbenztropine, Celexa, and Risperdal Elevated troponin likely ischemic demand with chronic diastolic congestive heart failure: We will obtain echocardiogram. Will monitor closely. Continue with above plan of care. Weakness to the right upper extremity likely right wrist drop radial nerve compression neuropathy: We will monitor closely. Physical therapy to help with strength. DVT PPX: Lovenox Code status: Case discussed at length with mother and sister. After long discussion, patient is now DO NOT RESUSCITATE. Discharge Plan: Home at discharge likely early next week once NIV is obtained Time Spent Managing Pts Care (In Minutes): 55
[2021-05-30 06:17] LABS: ALT/SGPT 91 U/L (12-78); AST/SGOT 37 U/L (15-37); Albumin 1.8 g/dL (3.4-5.0); Alkaline Phosphatase 66 U/L (45-117); BUN Blood Urea Nitrogen 5 mg/dL (7-18); Bicarbonate 37 mmol/L (21-32); Bilirubin Total 0.2 mg/dL (0.2-1.0); Creatine Phosphokinase 228 U/L (39-308); Glucose Level 125 mg/dL (74-106); Potassium 4.1 mmol/L (3.5-5.1); Protein, Total 5.5 g/dL (6.4-8.2); Sodium Level 146 mmol/L (136-145)
[2021-05-30 08:03] VITALS: O2SAT 100
[2021-05-30] MEDS: VANCOMYCIN/NS 1 gm 1 GM/250 ML BAG IVPB SCH (09:00)
[2021-05-30] MEDS ORDERED: ALBUTEROL 2.5 MG/3 ML NEB SOL NEB PRN (10:00)
[2021-05-30] MEDS: NACHLORIDE 0.45% 1,000 ML IV SCH (10:21)
[2021-05-30] MEDS: RISPERIDONE 1 MG TABLET PO SCH (10:23)
[2021-05-30] MEDS: ENOXAPARIN 40 MG/0.4 ML SQ SCH (10:23)
[2021-05-30] MEDS: CITALOPRAM 10 MG TABLET PO SCH (10:24)
[2021-05-30] MEDS: FOLIC ACID 1 MG TABLET PO SCH (10:24)
[2021-05-30] MEDS: BENZTROPINE 1 MG TAB PO SCH (10:24)
[2021-05-30] MEDS: acetaZOLAMIDE 250 MG TAB PO SCH (10:24)
--- NOTE | 2021-05-30 10:26 | RAD REPORT ---
EXAM DESCRIPTION: Gabriel Single View05/30/2021 6:39 am CLINICAL HISTORY: Shortness of breath COMPARISON: May 28, 2021 FINDINGS: Complete opacification left hemithorax with volume loss Mild to moderate right basilar lung opacities. Cardiomegaly IMPRESSION: Complete opacification left hemithorax consistent with atelectasis and pneumonia. Mild to moderate right basilar pneumonia
--- NOTE | 2021-05-30 11:35 | P.PN ---
Subjective Date of Service: 05/30/21 Primary Care Provider: Dr. Alejandra, pulmonology Dr. Montero, cardiology Dr. Mott Chief Complaint: Respiratory failure Subjective: Improving (Patient is doing much better he is more alert responsive oxygenation satisfactory) Patient has developed opacification of the left hemithorax most likely he has atelectasis we will start chest percussion and to resume vest therapy as well Review of Systems is unable to be obtained Physical Examination - Vital Signs Temperature: 97.6 F Blood Pressure: 138/71 Pulse: 94 Respirations: 16 Pulse Ox (%): 100 - Physical Exam General: Alert, Cooperative Assessment & Plan - Problems (Diagnosis) (1) Hypercapnic respiratory failure Current Visit: No Status: Acute Plan: Patient is doing much better he will qualify for a noninvasive ventilator he is chronic respiratory failure and he appears to be stable no evidence of ongoing sepsis DC antibiotic and gem over to p.o. levofloxacin and doxycycline patient has complete opacification of the left hemithorax start progression mild hypernatremia increase water flushes Qualifiers: Chronicity: acute on chronic Qualified Code(s): J96.22 - Acute and chronic respiratory failure with hypercapnia
[2021-05-30] MEDS ORDERED: ALBUTEROL 2.5 MG/3 ML NEB SOL NEB SCH (12:00)
[2021-05-30] MEDS ORDERED: DOXYCYCLINE 100 MG CAP PO SCH (12:00)
[2021-05-30] MEDS ORDERED: levoFLOXacin 500 MG TAB PO SCH (12:00)
[2021-05-30 20:17] VITALS: BP 115/64; TEMP 98.7
[2021-05-30] MEDS ORDERED: VANCOMYCIN 1.25 GM in NA CHLORIDE 0.9% 250 ML IVPB SCH (21:00)
--- NOTE | 2021-05-30 21:19 | P.DS ---
Admission Date: 05/27/21 Discharge Date: 05/30/21 Primary Care Provider: Dr. Alejandra, Pulmonary-Dr. Hand, Cardiology Dr. Mott Disposition: Discharge Condition: Reason for Admission: Respiratory failure Consultations: Pulm. Dr. Hand Procedures: COVID: negative CXR: COMPARISON: Chest Pa And Lat (2 Views) dated 05/05/2021; Abdomen 1 View (KUB) dated 05/01/2021; Chest Single View dated 04/23/2021; Chest Single View dated 04/22/2021 FINDINGS: Portable technique limits examination quality. A large area of lung consolidation is present in the left lung base, a small or consolidation is present in the right lung base, most compatible with pneumonia. The heart is normal in size. No displaced fractures. IMPRESSION: Bibasilar lung infiltrates compatible with pneumonia, significantly greater on the left. CT chest: COMPARISON: Chest For Pe Angio dated 02/06/2021 FINDINGS: Large area of lung consolidation is seen left lower lobe lingula. This is compatible with pneumonia. Mild infiltrate is present in the right lung base as well. No pleural thickening or pleural effusion. No pneumothorax. No axillary, mediastinal or hilar adenopathy. No concerning bony finding. No gross upper abdominal finding. All CT scans are performed using dose optimization technique as appropriate and may include automated exposure control or mA/KV adjustment according to patient size. IMPRESSION: Large area of lung consolidation in the left lower lobe is most compatible with pneumonia. CT Head: COMPARISON: <Comparisons> TECHNIQUE: All CT scans are performed using dose optimization technique as appropriate and may include automated exposure control or mA/KV adjustment according to patient size. FINDINGS: Mild motion degradation is present, limiting study. No intracranial hemorrhage, hydrocephalus or extra-axial fluid collection.No areas of brain edema or evidence of midline shift. The paranasal sinuses and mastoids are clear. The calvarium is intact. IMPRESSION: No acute intracranial abnormality. Follow up CXR 05/30/2021: COMPARISON: May 28, 2021 FINDINGS: Complete opacification left hemithorax with volume loss Mild to moderate right basilar lung opacities. Cardiomegaly IMPRESSION: Complete opacification left hemithorax consistent with atelectasis and pneumonia. Mild to moderate right basilar pneumonia Physical exam: General: Patient alert, cooperative. Currently on 6 L per nasal cannula. HEENT: Atraumatic, Other (Mucous membranes dry) Neck: Supple Respiratory: Decreased to the left side currently on 6 L per nasal cannula Cardiovascular: No edema, Normal S1 S2 Capillary refill: <2 Seconds Gastrointestinal: Normal bowel sounds, Soft and benign Musculoskeletal: Muscle wasting to the upper and lower extremities. Integumentary: No significant edema Neurological: Increased sedation noted. 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 Family reports that patient's shortness of breath began increasing throughout the day today with increasing oxygen requirement. Patient does have oxygen at home but was found to be hypoxic with saturations in the 60s even on his home oxygen level. Patient with PEG tube in place. Patient was evaluated in the emergency department labs were significant for hemoglobin 12 adequate 38 sodium 147 potassium 3.2 CO2 33 creatinine 0.26 glucose 165 lactic acid 3.2 AST 171 ALT 150 CPK 2739 CK-MB 22.8 troponin 0 0.08 urinalysis pending Covid test negative CT chest without contrast demonstrates large area of lung consolidation in the left lower lobe most compatible with pneumonia. Patient family also noticed that his right upper extremity was very weak which happened suddenly yesterday, CT head brain negative in the emergency department for acute findings. ED provider wishes to admit for further evaluation and management of respiratory failure, pneumonia. Hospital Course: Was slowly improving throughout hospitalization, this evening patient was on BiPAP when he needed to have a bowel movement, his mother was at bedside and assisted patient to have a bowel movement, after rolling patient to his side he suddenly became unresponsive and apneic. Rapid response followed by immediate CODE BLUE was called. ED doctor and rapid response team arrived at bedside and found patient bradycardic and apneic. Patient was DNR/DNI, case was discussed at length with family who are at bedside who elected to honor patient's wishes with DNR/DNI. Patient was given 1 round of atropine/epinephrine for junctional escape rhythm with rate in the 30s but quickly progressed to asystole. Time of called 2052. Vital Signs/Physical Exam: Temp Pulse Resp BP Pulse Ox 98.7 F 105 H 19 115/64 93 05/30/21 20:00 05/30/21 20:00 05/30/21 20:00 05/30/21 20:00 05/30/21 20:00 General: Unresponsive Respiratory: Other (Apneic) Cardiovascular: Abnormal pulses (Asystole, no palpable pulses) Laboratory Data at Discharge: WBC 7.80 K/uL (4.3-10.9) D 05/30/21 05:01 Hgb 9.5 g/dL (13.6-17.9) L 05/30/21 05:01 Hct 30.3 % (39.6-49.0) L 05/30/21 05:01 Plt Count 169 K/uL (152-406) 05/30/21 05:01 PT Cancelled 05/27/21 19:08 INR Cancelled 05/27/21 19:08 APTT Cancelled 05/27/21 19:08 Sodium 146 mmol/L (136-145) H 05/30/21 05:01 Potassium 4.1 mmol/L (3.5-5.1) 05/30/21 05:01 BUN 5 mg/dL (7-18) L 05/30/21 05:01 Creatinine < 0.15 mg/dL (0.55-1.3) L 05/30/21 05:01 Glucose 125 mg/dL (74-106) H 05/30/21 05:01 Magnesium 2.0 mg/dL (1.8-2.4) 05/30/21 05:01 Total Bilirubin 0.2 mg/dL (0.2-1.0) 05/30/21 05:01 AST 37 U/L (15-37) 05/30/21 05:01 ALT 91 U/L (12-78) H 05/30/21 05:01 Alkaline Phosphatase 66 U/L (45-117) 05/30/21 05:01 Troponin I 0.23 ng/mL (0.0-0.045) H 05/28/21 11:09 Triglycerides 73 mg/dL (<150) 05/28/21 03:35 Cholesterol 99 mg/dL (<200) 05/28/21 03:35 HDL Cholesterol 41 mg/dL (40-60) 05/28/21 03:35 Cholesterol/HDL Ratio 2.41 05/28/21 03:35 Amylase 26 U/L (25-115) 05/27/21 19:40 Lipase 16 U/L (73-393) L 05/27/21 19:40 Home Medications: Benztropine Mesylate [Cogentin] 2 mg PO BID 02/05/21 Citalopram [Celexa*] 20 mg PO DAILY 02/05/21 LORazepam [Ativan*] 1 mg PO PRN PRN 02/05/21 risperiDONE [Risperdal] 4 mg PO BID 02/05/21 Folic Acid 1 mg FT DAILY #90 tablet 02/16/21 Jevity 1.5 Oracio Liquid 360 ml FT TID #90 bot 02/16/21 Carvedilol [Coreg] 1 tab PO BID 04/19/21 Albuterol Neb [Proventil 0.083% Neb Soln] 2.5 mg NEB Q4H PRN #60 vial.neb 04/22/21 acetaZOLAMIDE [Acetazolamide] 125 mg PO DAILY #30 tablet 04/22/21 Physician Discharge Instructions: Rest in peace Followup: Marcello Alejandra DO [Primary Care Provider] - Time spent managing pt's care (in minutes): 35
[2021-05-30] MEDS ORDERED: EPINEPHrine 1 MG/10 ML SYR IV ONE (23:29)
[2021-05-30] MEDS ORDERED: ATROPINE SULF 1 MG/10 ML SYR IV ONE (23:29)
== END 2021-05-30 23:30 | disposition expired | DRG 193 ==
LOC: ER 18:51 → ERHOLD 22:06 → 4TH 23:20 → ERHOLD 05-28 10:39 → 4TH 05-29 10:18 → 2ND 05-30 17:35
PROVIDERS: ADMIT Family Medicine; ATTEND Family Medicine
PROC: 5A09457 Assistance with Respiratory Ventilation, 24-96 Consecutive Hours, Continuous Positive Airway Pressure (ICD-10-PCS; principal; 2021-05-28)
DX: J18.9 Pneumonia, unspecified organism (principal); J96.01 Acute respiratory failure with hypoxia; J96.22 Acute and chronic respiratory failure with hypercapnia; I50.32 Chronic diastolic (congestive) heart failure; E87.0 Hyperosmolality and hypernatremia; E87.2 Acidosis; I24.8 Other forms of acute ischemic heart disease; G58.8 Other specified mononeuropathies; F60.3 Borderline personality disorder; F31.9 Bipolar disorder, unspecified; G71.09 Other specified muscular dystrophies; G62.9 Polyneuropathy, unspecified; E86.0 Dehydration; R13.10 Dysphagia, unspecified; R77.8 Other specified abnormalities of plasma proteins; R00.1 Bradycardia, unspecified; R00.0 Tachycardia, unspecified; Z93.1 Gastrostomy status; Z66 Do not resuscitate; Z79.899 Other long term (current) drug therapy; Z20.822 Contact with and (suspected) exposure to COVID-19
CPT/HCPCS: 36415; 70450; 71045; 71250; 80048; 80053; 80061; 80076; 80202; 81003; 81015; 82150; 82550; 82553; 82805; 82947; 83605; 83615; 83690; 83735; 84132; 84145; 84439; 84443; 84484; 85025; 87040; 93005; 94660; 94760; 96365; 96366; 96367; 96375; 99285; J0171; J1650; J2543; J3370; J3475; J7030; J7040; J7050; U0003